=== PATIENT | male | born 1940 | race Caucasian/White ===

== ENCOUNTER 2018-08-14 18:02 | Inpatient (IN) | payer OTHER ==
[2018-08-14 18:15] VITALS: BMI 16.6
--- NOTE | 2018-08-14 19:27 | PDOC ---
History of Present Illness - General Chief Complaint: Cold Symptoms Stated Complaint: SHORTNESS OF BREATH Time Seen by Provider: 08/14/18 19:27 - History of Present Illness Initial Comments: 77 year old male with PMH of dementia, HTN, HLD, CKD, COPD (2L NC at home) presenting with chest tightness, cough, and SOB for the past two days. Family at bedside state that he has also had decreased appetite and slight weakness. His symptoms have improved with home nebulizer (x1 per day over the past two days) but he stills feels the chest tightness. His cough is dry but he feels congested. Denies any fevers, chills, nausea, vomiting, diarrhea, urinary symptoms, lightheadedness or other issues. 08/14/18 19:34 Past History - Past Medical History Allergies/Adverse Reactions: Allergies Allergy/AdvReac Type Severity Reaction Status Date / Time iodine Allergy Verified 08/14/18 18:12 Home Medications: Ambulatory Orders Albuterol 0.083% Nebulizer Mami [Ventolin 0.083% Nebulizer Soln -] 1 amp NEB Q4H PRN #0 amp 04/28/16 Aspirin Coated [Ecotrin -] 81 mg PO DAILY tablet.ec 04/28/16 Budesonide/Formeterol Fumarate [SYMBICORT 80/4.5mcg -] 2 puff IH BID inhaler Albuterol Sulfate [Proair Hfa] 8.5 gm IH TID 08/14/18 Donepezil HCl 5 mg PO HS 08/14/18 Isosorbide Mononitrate [Imdur -] 10 mg PO BID 08/14/18 Memantine HCl [Namenda -] 5 mg PO DAILY 08/14/18 Metoprolol Tartrate [Lopressor -] 25 mg PO DAILY 08/14/18 Anemia: No Asthma: Yes Cancer: No Cardiac Disorders: Yes CVA: No COPD: Yes CHF: No Dementia: Yes Diabetes: No GI Disorders: No Disorders: Yes (KIDNEY ISSUES) HTN: Yes Hypercholesterolemia: Yes Liver Disease: No Seizures: No Thyroid Disease: Yes - Surgical History Abdominal Surgery: Yes (URETER TUBE CHILD) Appendectomy: Yes Cardiac Surgery: No Cholecystectomy: No Lung Surgery: No Neurologic Surgery: Yes (cyst removed from spine) Orthopedic Surgery: No - Immunization History Td Vaccination: No TDAP Vaccination: No Immunization Up to Date: No - Suicide/Smoking/Psychosocial Hx Smoking Status: Yes Smoking History: Former smoker Have you smoked in the past 12 months: No Number of Cigarettes Smoked Daily: 30 If you are a former smoker, when did you quit?: November 2012 Information on smoking cessation initiated: No 'Breaking Loose' booklet given: 05/04/13 Hx Alcohol Use: No Drug/Substance Use Hx: No Substance Use Type: None Hx Substance Use Treatment: No Review of Systems - Review of Systems Constitutional: No: Chills, Diaphoresis, Fever, Loss of Appetite HEENTM: No: Blurred Vision, Tearing Respiratory: Yes: Cough, Shortness of Breath, SOB with Exertion. No: Orthopnea , Wheezing, Productive cough Cardiac (ROS): No: Chest Pain, Edema, Irregular Heart Rate ABD/GI: Yes: Poor Appetite. No: Diarrhea, Nausea, Vomiting : No: Burning, Dysuria, Discharge, Frequency Musculoskeletal: No: Back Pain, Joint Pain Integumentary: No: Lesions, Lumps, Pallor Neurological: No: Headache, Numbness, Paresthesia Psychiatric: Yes: Other (dementia). No: Anxiety, Depression Hematologic/Lymphatic: No: Anemia, Blood Clots, Easy Bleeding *Physical Exam - Vital Signs Last Vital Signs Temp Pulse Resp BP Pulse Ox 9931 F H 87 18 183/93 H 100 08/14/18 18:12 08/14/18 18:12 08/14/18 18:12 08/14/18 18:12 08/14/18 18:12 - Physical Exam General Appearance: Yes: Nourished, Appropriately Dressed. No: Apparent Distress HEENT: positive: EOMI, ROSA, Normal ENT Inspection, Normal Voice Neck: positive: Trachea midline, Normal Thyroid, Supple. negative: Tender, Rigid Respiratory/Chest: positive: Decreased Breath Sounds (slightly decreased/ distant bilaterally). negative: Chest Tender, Lungs Clear, Normal Breath Sounds (distant with fine crackles bilaterally), Respiratory Distress, Accessory Muscle Use, Labored Respiration, Rapid RR Cardiovascular: positive: Regular Rhythm, Regular Rate Gastrointestinal/Abdominal: positive: Normal Bowel Sounds, Flat, Soft. negative : Tender Lymphatic: negative: Adenopathy, Tenderness Musculoskeletal: positive: Normal Inspection Extremity: positive: Normal Capillary Refill, Normal Inspection, Normal Range of Motion. negative: Tender Integumentary: positive: Normal Color, Dry, Warm Neurologic: positive: Fully Oriented, Alert, Normal Mood/Affect, Normal Response , Motor Strength 5/5 Moderate Sedation - Procedure Monitoring Vital Signs: Procedure Monitoring Vital Signs Temperature 9931 F H 08/14/18 18:12 Pulse Rate 87 08/14/18 18:12 Respiratory Rate 18 08/14/18 18:12 Blood Pressure 183/93 H 08/14/18 18:12 O2 Sat by Pulse Oximetry (%) 100 08/14/18 18:12 ED Treatment Course - LABORATORY CBC & Chemistry Diagram: 08/14/18 19:19 08/14/18 19:59 Medical Decision Making - Medical Decision Making 77 year old male with history COPD on 2L NC presneting with SOB, cough, and chest tightness. Discussed with hospitalist service and Dr. Enciso., No EKG changes (76, MO 120, QRS 92, QTc 481, [place] normal unchanged form previous) but elevated troponin to 0.08 (4x higher than previous in the setting off CKD). Given nebs, steroids, and azithromycin for mild copd exacerbation because of tropnemia and levated BNP, will admit for PRABHA and possible echo. 08/14/18 23:30 *DC/Admit/Observation/Transfer Diagnosis at time of Disposition: CKD (chronic kidney disease) stage 3, GFR 30-59 ml/min, Mild chronic obstructive pulmonary disease, Chest tightness, Elevated troponin I level - Discharge Dispostion Condition at time of disposition: Stable Decision to Admit order: Yes - Referrals - Patient Instructions - Post Discharge Activity
--- NOTE | 2018-08-14 19:31 | PDOC ---
Attending Attestation - HPI HPI: 08/14/18 20:20 The patient is a 77-year-old male, with a past medical history of HTN, HLD, COPD (on 2L NC), who presents to the ED with 2 days of nonproductive cough and shortness of breath. Patient had one nebulizer treatment yesterday and one earlier today. Upon examination, the patient is complaining of chest tightness but denies any chest pain. Son is at bedside. - Physicial Exam PE: 08/14/18 20:21 Agree with resident's exam. - Medical Decision Making 08/14/18 20:23 Chest X-Ray was reviewed by Dr. Pope and over-read by Radiology. Impression: No significant interval change or acute cardiopulmonary disease is present. <Ayla Zepeda - Last Filed: 08/14/18 20:23> - Resident Resident Name: Maryjane Flores - ED Attending Attestation I have performed the following: I have examined & evaluated the patient, The case was reviewed & discussed with the resident, I agree w/resident's findings & plan - Medical Decision Making 77-year-old male with shortness of breath and chest tightness Labs reviewed, there is elevation of patient's BENP, markedly increased from baseline as well as a mild elevation of patient's troponin Patient being patient given steroids and nebulizer treatments with some improvement In light of patient's age and abnormal labs he will be admitted to medical service for further management Impression chest pain Congestive heart failure elevated troponin 08/14/18 22:10 08/14/18 22:11 <Rachelle Pope - Last Filed: 08/14/18 22:12> Attestations - Attestations 08/14/18 20:21 Documentation prepared by Ayla Zepeda, acting as medical insurance verifier for Rachelle Pope DO. <Ayla Zepeda - Last Filed: 08/14/18 20:23>
[2018-08-14] MEDS ORDERED: ALBUTEROL SO4 2.5/IPRATROPIUM 0.5 INH SOL 3 ML VIAL.NEB. NEB ONE (20:24)
[2018-08-14] MEDS ORDERED: predniSONE 20 MG TABLET (UD) PO STA (20:26)
[2018-08-14] MEDS ORDERED: AZITHROMYCIN 250 MG TABLET PO STA (20:27)
[2018-08-14] MEDS: ALBUTEROL SO4 2.5/IPRATROPIUM 0.5 INH SOL 3 ML VIAL.NEB. NEB SCH ×2 (20:35→20:36)
[2018-08-14 20:44] LABS: HEMATOCRIT 35.8 % (35.4-49); HEMOGLOBIN 12.3 GM/dL (11.7-16.9); MCH 33.2 pg (25.7-33.7); MCHC 34.4 g/dl (32.0-35.9); MEAN CELL VOLUME 96.6 fl (80-96); MEAN PLT VOLUME 8.4 fl (7.5-11.1); PLATELET COUNT 215 K/MM3 (134-434); RDW 14.5 % (11.9-15.9); WHITE BLOOD COUNT 3.3 K/mm3 (4.0-10.0)
[2018-08-14 21:46] LABS: BLOOD UREA NITROGEN 18 mg/dL (7-18); CHLORIDE 100 mmol/L (98-107); GLUCOSE,RANDOM 90 mg/dL (74-106); POTASSIUM 4.2 mmol/L (3.5-5.1); SODIUM 141 mmol/L (136-145)
[2018-08-14 21:47] LABS: ALBUMIN 3.9 g/dl (3.4-5.0); ALK PHOS 138 U/L (45-117); ANION GAP 9 MMOL/L (8-16); BILIRUBIN,TOTAL 1.4 mg/dL (0.2-1); CALCIUM 8.8 mg/dL (8.5-10.1); CO2 32 mmol/L (21-32); N-TERMINAL BNP 8533.4 pg/ml (5-450); SGOT/AST 15 U/L (15-37); SGPT/ALT 10 U/L (13-61); TOT PROT 7.6 g/dl (6.4-8.2)
[2018-08-14] MEDS ORDERED: predniSONE 10 MG TABLET (UD) ONE (22:16)
[2018-08-14] MEDS ORDERED: AZITHROMYCIN 250 MG TABLET ONE (22:16)
--- NOTE | 2018-08-14 23:12 | HP ---
Admitting History and Physical - Primary Care Physician PCP: Glenny Marsh - Admission Chief Complaint: Chest Tightness, SOB, Cough History of Present Illness: This is a 77 y/o man with a PMHx of: HTN, HLD, CKD, COPD (2LNC), Former Smoker. Who presents with chest tightness, SOB and non-productive cough x 2 days. Patient's family reported to the ED decreased appetite and slight weakness. Patient is a poor historian unable to provide HPI. Per the ED: Family at bedside state that he has also had decreased appetite and slight weakness. His symptoms have improved with home nebulizer (x1 per day over the past two days) but he stills feels the chest tightness. His cough is dry but he feels congested. Denies any fevers, chills, nausea, vomiting, diarrhea, urinary symptoms, lightheadedness or other issues. History Source: Family Member, Medical Record Limitations to Obtaining History: Poor Historian - Past Medical History Cardiovascular: Yes: HTN, Hyperlipdemia Pulmonary: Yes: COPD, O2 Dependent Renal/: Yes: Renal Inusuff - Past Surgical History Past Surgical History: Yes: Appendectomy, Stent (Possibly aortic, patient is unsure) - Smoking History Smoking history: Former smoker Have you smoked in the past 12 months: No Aproximately how many cigarettes per day: 30 If you are a former smoker, when did you quit?: November 2012 - Alcohol/Substance Use Hx Alcohol Use: No History of Substance Use: reports: None - Social History Usual Living Arrangement: Yes: With Child ADL: Family Assistance 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 History of Recent Travel: No Home Medications - Allergies Allergies/Adverse Reactions: Allergies Allergy/AdvReac Type Severity Reaction Status Date / Time iodine Allergy Verified 08/14/18 18:12 - Home Medications Home Medications: Ambulatory Orders Albuterol 0.083% Nebulizer Mami [Ventolin 0.083% Nebulizer Soln -] 1 amp NEB Q4H PRN #0 amp 04/28/16 Aspirin Coated [Ecotrin -] 81 mg PO DAILY tablet.ec 04/28/16 Budesonide/Formeterol Fumarate [SYMBICORT 80/4.5mcg -] 2 puff IH BID inhaler Albuterol Sulfate [Proair Hfa] 8.5 gm IH TID 08/14/18 Donepezil HCl 5 mg PO HS 08/14/18 Isosorbide Mononitrate [Imdur -] 10 mg PO BID 08/14/18 Memantine HCl [Namenda -] 5 mg PO DAILY 08/14/18 Metoprolol Tartrate [Lopressor -] 25 mg PO DAILY 08/14/18 Family Disease History - Family Disease History Family History: Unable to Obtain Review of Systems Unable to obtain ROS, reason: Confused, poor historian Physical Examination Vital Signs: Vital Signs Temperature 9931 F H 08/14/18 18:12 Pulse Rate 87 08/14/18 18:12 Respiratory Rate 18 08/14/18 18:12 Blood Pressure 183/93 H 08/14/18 18:12 O2 Sat by Pulse Oximetry (%) 100 08/14/18 18:12 Constitutional: Yes: No Distress, Calm, Cachectic Eyes: Yes: Conjunctiva Clear, PERRL HENT: Yes: WNL, Atraumatic, Normocephalic Neck: Yes: WNL Cardiovascular: Yes: WNL, Regular Rate and Rhythm, S1, S2 Respiratory: Yes: Regular, CTA Bilaterally, On Nasal O2 Gastrointestinal: Yes: WNL, Normal Bowel Sounds, Soft Musculoskeletal: Yes: WNL Extremities: Yes: WNL Edema: No Peripheral Pulses WNL: Yes Neurological: Yes: Confusion, Cran Nerves II-XII Intact ...Motor Strength: WNL Psychiatric: Yes: Alert Labs: CBC, BMP 08/14/18 19:19 08/14/18 19:59 Current Medications Generic Name Dose Route Start Last Admin Trade Name Luz Elena PRN Reason Stop Dose Admin Albuterol Sulfate 1 amp 08/14/18 23:22 Ventolin 0.083% Nebulizer Soln - NEB Q4H PRN SHORT OF BREATH/WHEEZING Aspirin 81 mg 08/15/18 10:00 Ecotrin - PO DAILY MIKY Budesonide/Formoterol Fumarate 2 puff 08/14/18 23:00 08/15/18 02:27 Symbicort 80/4.5mcg - IH Not Given BID MIKY Donepezil HCl 5 mg 08/15/18 22:00 Aricept - PO HS MIKY Isosorbide Mononitrate 10 mg 08/15/18 08:00 Ismo - PO BID@0800,1500 MIKY Memantine 5 mg 08/15/18 10:00 Namenda - PO DAILY MIKY Metoprolol Tartrate 25 mg 08/15/18 10:00 Lopressor - PO DAILY MIKY Imaging - Results Chest X-ray: Report Reviewed (no interval change, no acute cardiopulmonary disease), Image Reviewed EKG: Image Reviewed Problem List - Problems (1) Chest tightness Assessment/Plan: Likely secondary to COPD flare vs ACS HEART Score 5 Continue cardiac monitoring Serial enzymes EKG- no change from prior study Appreciate Cardiology consult Echo in am Asa given in ED will continue Duonebs O2 Code(s): R07.89 - OTHER CHEST PAIN (2) Elevated troponin I level Assessment/Plan: Likely demand ischemia Serial enzymes Appreciate Cardiology consult Continue cardiac monitoring Code(s): R74.8 - ABNORMAL LEVELS OF OTHER SERUM ENZYMES (3) CKD (chronic kidney disease) stage 3, GFR 30-59 ml/min Assessment/Plan: Cr 2.0 Code(s): N18.3 - CHRONIC KIDNEY DISEASE, STAGE 3 (MODERATE) (4) COPD exacerbation Assessment/Plan: Chest xray- no interval change, no acute cardiopulmonary disease Rapid Influenza- neg A+B Azithromycin given in ED, will continue Prednisone given in ED Appreciate Pulmonology consult Continue home meds O2 Albuterol nebs Monitor CBC, BMP Code(s): J44.1 - CHRONIC OBSTRUCTIVE PULMONARY DISEASE W (ACUTE) EXACERBATION (5) Hyperlipidemia Assessment/Plan: Low Cholesterol Diet Code(s): E78.5 - HYPERLIPIDEMIA, UNSPECIFIED Qualifiers: Hyperlipidemia type: pure hypercholesterolemia Qualified Code(s): E78.00 - Pure hypercholesterolemia, unspecified; E78.0 - Pure hypercholesterolemia (6) Hypertension Assessment/Plan: Suboptimal Monitor BP Continue home meds with parameters Code(s): I10 - ESSENTIAL (PRIMARY) HYPERTENSION Qualifiers: Hypertension type: essential hypertension Qualified Code(s): I10 - Essential (primary) hypertension (7) Poor appetite Assessment/Plan: Appreciate RD consult Appreciate Swallow Eval Encourage PO fluids Monitor BMP Code(s): R63.0 - ANOREXIA Assessment/Plan This is a 77 y/o man with a pMHx of HTN, HLD, CKD, COPD (2LNC), Former Smoker. Admitted to Telemetry Chest Pain, Elevated Troponin, Acute COPD Exacerbation for further evaluation of their emergent condition. Plan: See Problem List FEN PO fluids as tolerated Replete lytes prn Pureed Low Na Diet DVT ppx OOB SCDs Heparin SQ Dispo: Requires Inpatient Care Visit type - Emergency Visit Emergency Visit: Yes ED Registration Date: 08/14/18 Care time: The patient presented to the Emergency Department on the above date and was hospitalized for further evaluation of their emergent condition. - New Patient This patient is new to me today: Yes Date on this admission: 08/14/18 - Critical Care Critical Care patient: No
[2018-08-14] MEDS ORDERED: ALBUTEROL SO4 0.083% IH SOL 2.5 MG/3 ML VIAL.NEB. NEB PRN (23:22)
[2018-08-14] MEDS ORDERED: ASPIRIN 81 MG CHEWABLE TABLETS PO ONE (23:30)
[2018-08-15] MEDS: BUDESONIDE/FORMETEROL FUMARATE 80/4.5 mcg INHALER IH SCH ×2 (02:27→11:24)
[2018-08-15 06:06] LABS: BASO % 0.1 % (0-2.0); HEMATOCRIT 30.2 % (35.4-49); HEMOGLOBIN 10.4 GM/dL (11.7-16.9); LYMPH % 3.6 % (8-40); MCH 33.1 pg (25.7-33.7); MCHC 34.4 g/dl (32.0-35.9); MEAN CELL VOLUME 96.1 fl (80-96); MEAN PLT VOLUME 8.1 fl (7.5-11.1); MONO % 1.5 % (3.8-10.2); NEUT % 94.8 % (42.8-82.8); PLATELET COUNT 194 K/MM3 (134-434); RBC 3.14 M/mm3 (4.00-5.60); RDW 14.6 % (11.9-15.9); WHITE BLOOD COUNT 3.7 K/mm3 (4.0-10.0)
[2018-08-15 06:40] LABS: ANION GAP 8 MMOL/L (8-16); BLOOD UREA NITROGEN 20 mg/dL (7-18); CALCIUM 8.6 mg/dL (8.5-10.1); CHLORIDE 100 mmol/L (98-107); CHOLESTEROL 130 mg/dL (50-200); CO2 33 mmol/L (21-32); CREATININE 2.1 mg/dL (0.55-1.3); GLUCOSE,RANDOM 139 mg/dL (74-106); HDL CHOLESTEROL 49 mg/dL (40-60); MAGNESIUM 1.6 mg/dL (1.8-2.4); POTASSIUM 3.6 mmol/L (3.5-5.1); SODIUM 141 mmol/L (136-145); TRIGLYCERIDES 78 mg/dL (0-150)
[2018-08-15] MEDS: ISOSORBIDE MONONITRATE 10 MG TABLET PO SCH (09:23)
[2018-08-15] MEDS: METOPROLOL TARTRATE 25 MG TABLET (FP) PO SCH (11:23)
[2018-08-15] MEDS: ASPIRIN COATED 81 MG TABLET.EC PO SCH (11:23)
[2018-08-15] MEDS: MEMANTINE HCL 5 MG TABLET (UD) PO SCH (11:24)
[2018-08-15 11:33] LABS: ANISOCYTOSIS 1+; MACROCYTOSIS 0; PLATELET ESTIMATE NORMAL
--- NOTE | 2018-08-15 12:23 | EKG ---
Test Reason : Blood Pressure : / mmHG Vent. Rate : 076 BPM Atrial Rate : 076 BPM P-R Int : 120 ms QRS Dur : 092 ms QT Int : 428 ms P-R-T Axes : 082 -29 017 degrees QTc Int : 481 ms NORMAL SINUS RHYTHM SEPTAL INFARCT (CITED ON OR BEFORE 14-AUG-2018) ABNORMAL ECG WHEN COMPARED WITH ECG OF 24-APR-2016 00:46, PREMATURE SUPRAVENTRICULAR COMPLEXES ARE NO LONGER PRESENT Confirmed by MACIEL GRAY MD ([id number]) on 08/15/2018 12:23:21 PM Referred By: Confirmed By:MACIEL GRAY MD
[2018-08-15] MEDS: AZITHROMYCIN IVPB 250 MG in DEXTROSE 5%-WATER - 250 ML IVPB SCH (12:55)
--- NOTE | 2018-08-15 13:18 | PN ---
Progress Note, Physician Chief Complaint: patient seen in ER complaining of cough sitting up in bed admitted for chest tightenss and cough Jose - Current Medication List Current Medications: Active Medications Albuterol Sulfate (Ventolin 0.083% Nebulizer Soln -) 1 amp NEB Q4H PRN PRN Reason: SHORT OF BREATH/WHEEZING Aspirin (Ecotrin -) 81 mg PO DAILY [facility] Last Admin: 08/15/18 11:23 Dose: 81 mg Budesonide/Formoterol Fumarate (Symbicort 80/4.5mcg -) 2 puff IH BID [facility] Last Admin: 08/15/18 11:24 Dose: Not Given Donepezil HCl (Aricept -) 5 mg PO HS [facility] Azithromycin 250 mg/ Dextrose 250 mls @ 250 mls/hr IVPB DAILY [facility] Stop: 08/19/18 09:59 Last Admin: 08/15/18 12:55 Dose: 250 mls/hr Isosorbide Mononitrate (Ismo -) 10 mg PO BID@0800,1500 [facility] Last Admin: 08/15/18 09:23 Dose: 10 mg Magnesium Sulfate (Magnesium Sulfate) 2 gm IVPB ONCE ONE Stop: 08/15/18 13:10 Memantine (Namenda -) 5 mg PO DAILY [facility] Last Admin: 08/15/18 11:24 Dose: 5 mg Metoprolol Tartrate (Lopressor -) 25 mg PO DAILY [facility] Last Admin: 08/15/18 11:23 Dose: 25 mg - Objective Vital Signs: Vital Signs Temperature 97.9 F 08/15/18 10:36 Pulse Rate 80 08/15/18 10:36 Respiratory Rate 20 08/15/18 10:36 Blood Pressure 164/82 08/15/18 10:36 O2 Sat by Pulse Oximetry (%) 100 08/15/18 10:36 Constitutional: Yes: Calm, Thin Cardiovascular: Yes: Regular Rate and Rhythm, S1, S2 Respiratory: Yes: Diminished Gastrointestinal: Yes: Normal Bowel Sounds, Soft Edema: No Neurological: Yes: Alert, Oriented Labs: CBC, BMP 08/15/18 05:50 08/15/18 05:50 Problem List - Problems (1) Chest tightness Assessment/Plan: troponin slightly elevated also inc in creatinine telemtery echo asa lipid panel Code(s): R07.89 - OTHER CHEST PAIN (2) Elevated troponin I level Assessment/Plan: trend troponin tele cardiology Code(s): R74.8 - ABNORMAL LEVELS OF OTHER SERUM ENZYMES (3) CKD (chronic kidney disease) stage 3, GFR 30-59 ml/min Assessment/Plan: renal consult Code(s): N18.3 - CHRONIC KIDNEY DISEASE, STAGE 3 (MODERATE) (4) Cough Assessment/Plan: influenza negative pulm eval duoneb oxygen steroids po azithromycin bronchodilators Code(s): R05 - COUGH (5) Hypomagnesemia Assessment/Plan: iv magnesium Code(s): E83.42 - HYPOMAGNESEMIA
--- NOTE | 2018-08-15 13:24 | ECHO ---
Name: CLARIBEL PICKETT Exam:Adult Echocardiogram Study Date: 08/15/2018 07:28 AM Age: 77 yrs Reason For Study: Chest pain Height: 65 in Weight: 100 lb BSA: 1.5 m2 MMode/2D Measurements & Calculations IVSd: 0.86 cm Ao root diam: 2.5 cm LVIDd: 4.3 cm LA dimension: 2.5 cm LVIDs: 3.1 cm LVPWd: 1.1 cm EDV(Teich): 81.7 ml ESV(Teich): 38.8 ml Doppler Measurements & Calculations MV E max nolvia: 60.1 cm/sec TR max nolvia: 278.3 cm/sec MV A max nolvia: 87.8 cm/sec TR max P.0 mmHg MV E/A: 0.68 MV dec time: 0.15 sec Med Peak E' Nolvia: 4.7 cm/sec PI Vmax: 111.3 cm/sec Med E/e': 12.8 Lat Peak E' Nolvia: 5.7 cm/sec Lat E/e': 10.6 Procedure A complete two-dimensional transthoracic echocardiogram was performed (2D, M-mode, Doppler and color flow Doppler). The study was technically difficult with many images being suboptimal in quality. Left Ventricle The left ventricular size, thickness and function are normal. The left ventricular ejection fraction is normal. Ejection Fraction = 55-60%. No regional wall motion abnormalities noted. Right Ventricle The right ventricle is not well visualized. Atria The left atrial size is normal. Right atrium not well visualized. Mitral Valve There is trace mitral regurgitation. Tricuspid Valve There is trace tricuspid regurgitation. Right ventricular systolic pressure is normal. Aortic Valve No aortic regurgitation is present. Pulmonic Valve The pulmonic valve is not well visualized. Great Vessels The aortic root is normal size. Pericardium/Pleura There is no pericardial effusion. Interpretation Summary The study was technically difficult with many images being suboptimal in quality. The left ventricular size, thickness and function are normal The right ventricle is not well visualized. There is trace mitral regurgitation. There is trace tricuspid regurgitation. MD Srinivasan Santana 08/15/2018 01:23 PM
--- NOTE | 2018-08-15 13:43 | CON.PULM ---
Consult Consult Specialty:: PULM/CCM Referred by:: CHATA Reason for Consultation:: SOB - History of Present Illness Chief Complaint: SOB History of Present Illness: 77 M, HTN, HLD, CKD, COPD due to prolonged and active smoking on home O2 @ 2 L. Admitted via the ER due to increasing congested cough, chest tightness, and SOB for about 2 to 3 days. Additional symptoms of poor oral intake and generalized malaise. No travel history or sick contacts. No night sweats or hemoptysis. No reported fever or chills. CXR: No acute process. CT chest: 2016: scattered 4 mm nodules - Past Medical History Cardio/Vascular: Yes: HTN, Hyperlipdemia Pulmonary: Yes: COPD, O2 Dependent Renal/: Yes: Renal Inusuff Additional Medical History: gu surgery as a child; cyst on back - Past Surgical History Past Surgical History: Yes: Appendectomy, Stent (Possibly aortic, patient is unsure) - Alcohol/Substance Use Hx Alcohol Use: No History of Substance Use: reports: None - Smoking History Smoking history: Former smoker Have you smoked in the past 12 months: No Aproximately how many cigarettes per day: 30 If you are a former smoker, when did you quit?: November 2012 - Social History ADL: Family Assistance 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 History of Recent Travel: No Home Medications - Allergies Allergies/Adverse Reactions: Allergies Allergy/AdvReac Type Severity Reaction Status Date / Time iodine Allergy Verified 08/14/18 18:12 - Home Medications Home Medications: Ambulatory Orders Albuterol 0.083% Nebulizer Mami [Ventolin 0.083% Nebulizer Soln -] 1 amp NEB Q4H PRN #0 amp 04/28/16 Aspirin Coated [Ecotrin -] 81 mg PO DAILY tablet.ec 04/28/16 Budesonide/Formeterol Fumarate [SYMBICORT 80/4.5mcg -] 2 puff IH BID inhaler Albuterol Sulfate [Proair Hfa] 8.5 gm IH TID 08/14/18 Donepezil HCl 5 mg PO HS 08/14/18 Isosorbide Mononitrate [Imdur -] 10 mg PO BID 08/14/18 Memantine HCl [Namenda -] 5 mg PO DAILY 08/14/18 Metoprolol Tartrate [Lopressor -] 25 mg PO DAILY 08/14/18 Physical Exam Vital Sings: Vital Signs Temperature 97.9 F 08/15/18 10:36 Pulse Rate 80 08/15/18 10:36 Respiratory Rate 20 08/15/18 10:36 Blood Pressure 164/82 08/15/18 10:36 O2 Sat by Pulse Oximetry (%) 100 08/15/18 10:36 Constitutional: Yes: No Distress, Thin Eyes: Yes: Conjunctiva Clear, EOM Intact HENT: Yes: Atraumatic, Normocephalic Neck: Yes: Supple, Trachea Midline Cardiovascular: Yes: Regular Rate and Rhythm Respiratory: Yes: Cough, Diminished, On Nasal O2, Rhonchi, Wheezes. No: Accessory Muscle Use, Rales, SOB, SOB on Exertion, Stridor, Tachypnea ...Inspection: Yes: WNL ...Clubbing: No Gastrointestinal: Yes: WNL, Normal Bowel Sounds, Soft Renal/: Yes: WNL Musculoskeletal: Yes: WNL Extremities: Yes: WNL Edema: No Peripheral Pulses WNL: Yes Integumentary: Yes: WNL Neurological: Yes: WNL, Alert, Oriented ...Motor Strength: WNL Psychiatric: Yes: WNL, Alert, Oriented Labs: CBC, BMP 08/15/18 05:50 08/15/18 05:50 Imaging - Results Chest X-ray: Report Reviewed, Image Reviewed Cat Scan: Report Reviewed, Image Reviewed Problem List - Problems (1) Cough Code(s): R05 - COUGH (2) Poor appetite Code(s): R63.0 - ANOREXIA (3) COPD exacerbation Code(s): J44.1 - CHRONIC OBSTRUCTIVE PULMONARY DISEASE W (ACUTE) EXACERBATION (4) Chronic obstruct airways disease Code(s): J44.9 - CHRONIC OBSTRUCTIVE PULMONARY DISEASE, UNSPECIFIED (5) Hyperlipidemia Code(s): E78.5 - HYPERLIPIDEMIA, UNSPECIFIED Qualifiers: Hyperlipidemia type: pure hypercholesterolemia Qualified Code(s): E78.00 - Pure hypercholesterolemia, unspecified; E78.0 - Pure hypercholesterolemia (6) Hypertension Code(s): I10 - ESSENTIAL (PRIMARY) HYPERTENSION Qualifiers: Hypertension type: essential hypertension Qualified Code(s): I10 - Essential (primary) hypertension Assessment/Plan Agree with Prednisone O2 as needed Noted Zithromax No smoking discussed Patient can likely be discharged in the AM if stable/improved Noted Symbicort On discharge should be on LAMA/LABA PFTs after discharge Will follow Thank you. Dr Fitch
--- NOTE | 2018-08-15 13:57 | CON.CARD ---
Consult Consult Specialty:: cardiology Referred by:: Salma Reason for Consultation:: Chest pain and shortness of breath - History of Present Illness Chief Complaint: Chest pain and shortness of breath History of Present Illness: The patient is a 77-year-old cachectic man, heavy smoker for many years, hypertension, hyperlipidemia, COPD on home O2, chronic kidney disease, now admitted with generalized weakness, cough, shortness of breath, and a brief episode of chest pain. The patient has been given antibiotics for COPD exacerbation and possible pneumonia. The patient reported an episode of chest tightness while sitting in the chair. As per the patient the symptoms lasted approximately 35-40 seconds before subsiding. Denied such prior symptoms. He is currently chest pain-free. In mild respiratory distress. - History Source History Provided By: Patient, Medical Record Limitations to Obtaining History: No Limitations - Past Medical History Cardio/Vascular: Yes: HTN, Hyperlipdemia Pulmonary: Yes: COPD, O2 Dependent Renal/: Yes: Renal Inusuff Additional Medical History: gu surgery as a child; cyst on back - Past Surgical History Past Surgical History: Yes: Appendectomy, Stent (Possibly aortic, patient is unsure) - Alcohol/Substance Use Hx Alcohol Use: No History of Substance Use: reports: None - Smoking History Smoking history: Former smoker Have you smoked in the past 12 months: No Aproximately how many cigarettes per day: 30 If you are a former smoker, when did you quit?: November 2012 - Social History ADL: Family Assistance 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 History of Recent Travel: No Home Medications - Allergies Allergies/Adverse Reactions: Allergies Allergy/AdvReac Type Severity Reaction Status Date / Time iodine Allergy Verified 08/14/18 18:12 - Home Medications Home Medications: Ambulatory Orders Albuterol 0.083% Nebulizer Mami [Ventolin 0.083% Nebulizer Soln -] 1 amp NEB Q4H PRN #0 amp 04/28/16 Aspirin Coated [Ecotrin -] 81 mg PO DAILY tablet.ec 04/28/16 Budesonide/Formeterol Fumarate [SYMBICORT 80/4.5mcg -] 2 puff IH BID inhaler Albuterol Sulfate [Proair Hfa] 8.5 gm IH TID 08/14/18 Donepezil HCl 5 mg PO HS 08/14/18 Isosorbide Mononitrate [Imdur -] 10 mg PO BID 08/14/18 Memantine HCl [Namenda -] 5 mg PO DAILY 08/14/18 Metoprolol Tartrate [Lopressor -] 25 mg PO DAILY 08/14/18 Review of Systems - Review of Systems Constitutional: reports: Lethargy, Loss of Appetite, Malaise Eyes: reports: No Symptoms HENT: reports: No Symptoms Neck: reports: No Symptoms Cardiovascular: reports: Chest Pain Respiratory: reports: Cough, SOB Gastrointestinal: reports: No Symptoms Genitourinary: reports: No Symptoms Breasts: reports: No Symptoms Reported Musculoskeletal: reports: No Symptoms Integumentary: reports: No Symptoms Neurological: reports: No Symptoms Endocrine: reports: No Symptoms Hematology/Lymphatic: reports: No Symptoms Vital Signs: Vital Signs Temperature 97.9 F 08/15/18 10:36 Pulse Rate 80 08/15/18 10:36 Respiratory Rate 20 08/15/18 10:36 Blood Pressure 164/82 08/15/18 10:36 O2 Sat by Pulse Oximetry (%) 100 08/15/18 10:36 Constitutional: Yes: Cachectic Eyes: Yes: WNL, Conjunctiva Clear, EOM Intact HENT: Yes: WNL, Atraumatic, Normocephalic Neck: Yes: WNL, Supple, Trachea Midline Respiratory: Yes: Cough, Diminished, On Nasal O2, Poor Air Entry, Rhonchi, SOB Gastrointestinal: Yes: WNL, Normal Bowel Sounds, Soft Renal/: Yes: WNL Cardiovascular: Yes: WNL, Regular Rate and Rhythm JVD: No Carotid Bruit: No PMI: Non-Displaced Heart Sounds: Yes: S1, S2 Murmur: Yes: Systolic Murmur, Grade 2 Musculoskeletal: Yes: WNL Extremities: Yes: WNL Edema: No Peripheral Pulses: 1+ Left Carotid, 1+ Right Carotid, 1+ Left Femoral, 1+ Right Femoral, 1+ Left Popliteal, 1+ Right Popliteal, 1+ Left Doralis Pedis, 1+ Right Dorsalis Pedis Integumentary: Yes: WNL Neurological: Yes: WNL, Alert, Oriented ...Motor Strength: WNL - Other Data Labs, Other Data: CBC, BMP 08/15/18 05:50 08/15/18 05:50 Troponin, BNP 0108/15/18 08/15/18 19:59 04:35 05:50 Troponin I 0.08 H 0.06 H 0.07 H B-Natriuretic Peptide 8533.4 H Troponin, BNP 08/14/18 08/15/18 08/15/18 19:59 04:35 05:50 Troponin I 0.08 H 0.06 H 0.07 H B-Natriuretic Peptide 8533.4 H Assessment/Plan The patient is a 77-year-old cachectic man, heavy smoker for many years, hypertension, hyperlipidemia, COPD on home O2, chronic kidney disease, now admitted with generalized weakness, cough, shortness of breath, and a brief episode of chest pain. The patient has been given antibiotics for COPD exacerbation and possible pneumonia. The patient reported an episode of chest tightness while sitting in the chair. As per the patient the symptoms lasted approximately 35-40 seconds before subsiding. Denied such prior symptoms. He is currently chest pain-free. In mild respiratory distress. Troponins are minimally elevated. No further chest pains. No CHF. There is no evidence of ischemia nor acute coronary syndrome. The patient is in sinus rhythm. There are no acute ECG changes. Would treat conservatively in this setting. May consider an outpatient pharmacological nuclear stress test and echocardiogram, once respiratory status is improved. No need for cardiac monitoring. No need for further cardiac workup at this point. Please do not hesitate to call us PRN.
[2018-08-15] MEDS ORDERED: MAGNESIUM SULF 50% (8.12 MEQ/2 ML-1 GM VIAL) IVPB ONE (14:00)
--- NOTE | 2018-08-15 15:46 | CONSULT ---
Admitting History and Physical - Primary Care Physician PCP: Adelita Mcallister - Admission History of Present Illness: This is a 77 y/o man with a pMHx of HTN, HLD, CKD, COPD (2LNC), cachectic, heavy smoker for many years, admitted to Telemetry Chest Pain, Elevated Troponin , Acute COPD Exacerbation with c/o increasing congested cough, chest tightness , and SOB for about 2 to 3 days, poor oral intake and generalized malaise. The patient has been given antibiotics for COPD exacerbation and possible pneumonia Selected Entries 08/15/18 08/15/18 10:36 14:00 Temperature 97.9 F 98.3 F Laboratory Tests 08/15/18 05:50 WBC 3.7 L This is my first consult with this pt. Limitations to Obtaining History: Clinical Condition - Past Medical History Cardiovascular: Yes: HTN, Hyperlipdemia Pulmonary: Yes: COPD, O2 Dependent Renal/: Yes: Renal Inusuff - Past Surgical History Past Surgical History: Yes: Appendectomy, Stent (Possibly aortic, patient is unsure) - Smoking History Smoking history: Former smoker Have you smoked in the past 12 months: No Aproximately how many cigarettes per day: 30 If you are a former smoker, when did you quit?: November 2012 - Alcohol/Substance Use Hx Alcohol Use: No History of Substance Use: reports: None - Social History ADL: Family Assistance 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 History of Recent Travel: No History - Admission Reason For Visit: ELEVATED BRAIN NATRIURETIC PEPTIDE LEVEL ELEVATED - Diagnostics X-ray: Report Reviewed CT Scan: Report Reviewed - General Mental Status: Awake and Alert (Knows [facility], [place], wants to know how long he has been here, thinks he is 89 yo), Able to Follow Commands Attention: Intact Ability to Follow Directions: Good Head/Neck Control: Good - Hearing Hearing: Impaired Speech Evaluation - Communication Primary Language: PASHTO Communication: Yes: Simple Responses - Speech Production Able to Make Needs Known: Yes: Mildly Impaired Intelligibility: Yes: Mildly Impaired - Speech Characteristics Voice Loudness: Mildly Soft/Quiet Voice Pitch: Yes: Normal Voice Phonatory-based Quality: Yes: Normal Speech Pattern: Normal Speech Clarity: < 100% Nasal Resonance: Normal Articulation: Yes: Precise Rate of Speech: Intact - Language/Auditory Comprehension Follows: Yes: 1 Stage Simple Commands - Language/Verbal Expression Able to Respond to Simple Queries: Yes: WNL Able to Communicate Wants and Needs: Yes: WNL Functional Communication Status: Yes: WNL - Swallow Evaluation/Bedside Assessment Current Nutritional Intake: Regular, Thin Liquids Oral Secretions: Yes: WFL Dentition: Yes: Edentulous Facial Symmetry at Rest: Symmetrical Against Resistance Opening: Normal Against Resistance Closing: Normal Pucker Lips: Normal Smile: Normal Lingual Movement: Normal, Symmetric Lingual Speed of Movement: Normal Lingual Movement Strgth Against Opposition: Normal Lingual Movement Characteristics: Normal Velopharyngeal Movement: Normal Laryngeal Movement: Able to Palpate, Reduced Excursion, Labored,delay initiation Rate of Intake: WFL Bolus Size: Small Labial Seal: WFL Chewing: Impaired Oral Prep Time: WFL A-P Transit: WFL Pocketing: None Timing of Swallow: Delayed Coughing/Throat Clear: Yes (thin) Recommendations - Speech Evaluation, Impression/Plan Impression: Pt reports solids sticking in his chest, needing to drink to wash them down. Edentulous. Cough response with thin liquid. Loss of appetite. Cachectic. - Disposition Discharge to: To be Determined - Dysphagia Impressions/Plan Dysphagia Impressions: Ongoing Evaluation, Suspect Aspiration *Silent aspiration: cannot be R/O at bedside Dysphagia Treatment Plan: Small Bites, Chin Tuck/Down, Facilitative Feeding, Safe Rate, 1/2 tsp. at a time, OOB for 1 h. after meals Recommendations: Modified Barium Swallow - Recommendations Diet Consistency: Dysphagia Pureed Medication Administration: Crushed with applesauce Liquids: Felsenthal Thick Supplement: Magic Cup, Ensure Pudding, Other (Ensure compact)
[2018-08-15] MEDS ORDERED: FLU VACCINE QUAD 60 MCG/0.5 ML (MDV 18-19) IM ONE (19:00)
--- NOTE | 2018-08-15 19:45 | CONSULT ---
Consult Consult Specialty:: Nephrology Reason for Consultation:: ckd - History of Present Illness Chief Complaint: chest tightness and shortness of breath History of Present Illness: Pt is a 77 year old male with pmhx of CKD, HTN, dementia, HLD, and COPD who presents to the ER complaining of shortness of breath and chest tightness. He says that he has had the symptoms for two days. He was found to have elevated creatinine and I was called to evaluate him. He has history of CKD. He was seen by me in the past however he has poor followup. He denies dysuria or hematuria. He denies nsaid use. - History Source History Provided By: Patient, Medical Record - Past Medical History Cardio/Vascular: Yes: HTN, Hyperlipdemia Pulmonary: Yes: COPD, O2 Dependent Renal/: Yes: Renal Inusuff Additional Medical History: gu surgery as a child; cyst on back - Past Surgical History Past Surgical History: Yes: Appendectomy, Stent (Possibly aortic, patient is unsure) - Alcohol/Substance Use Hx Alcohol Use: No History of Substance Use: reports: None - Smoking History Smoking history: Former smoker Have you smoked in the past 12 months: No Aproximately how many cigarettes per day: 30 If you are a former smoker, when did you quit?: 2013 - Social History ADL: Family Assistance 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 History of Recent Travel: No Home Medications - Allergies Allergies/Adverse Reactions: Allergies Allergy/AdvReac Type Severity Reaction Status Date / Time iodine Allergy Verified 08/14/18 18:12 - Home Medications Home Medications: Ambulatory Orders Albuterol 0.083% Nebulizer Mmai [Ventolin 0.083% Nebulizer Soln -] 1 amp NEB Q4H PRN #0 amp 04/28/16 Aspirin Coated [Ecotrin -] 81 mg PO DAILY tablet.ec 04/28/16 Budesonide/Formeterol Fumarate [SYMBICORT 80/4.5mcg -] 2 puff IH BID inhaler Albuterol Sulfate [Proair Hfa] 8.5 gm IH TID 08/14/18 Donepezil HCl 5 mg PO HS 08/14/18 Isosorbide Mononitrate [Imdur -] 10 mg PO BID 08/14/18 Memantine HCl [Namenda -] 5 mg PO DAILY 08/14/18 Metoprolol Tartrate [Lopressor -] 25 mg PO DAILY 08/14/18 Family Disease History - Family Disease History Family History: Denies Review of Systems - Review of Systems Constitutional: reports: Malaise Eyes: reports: No Symptoms HENT: reports: No Symptoms Neck: reports: No Symptoms Cardiovascular: reports: Shortness of Breath Respiratory: reports: Cough, SOB, SOB on Exertion Genitourinary: reports: No Symptoms Musculoskeletal: reports: No Symptoms Integumentary: reports: No Symptoms Neurological: reports: No Symptoms Endocrine: reports: No Symptoms Hematology/Lymphatic: reports: No Symptoms Psychiatric: reports: No Symptoms Physical Exam Vital Signs: Vital Signs Temperature 98.4 F 08/15/18 18:00 Pulse Rate 68 08/15/18 18:00 Respiratory Rate 22 H 08/15/18 18:00 Blood Pressure 116/70 08/15/18 18:00 O2 Sat by Pulse Oximetry (%) 98 08/15/18 18:18 Constitutional: Yes: Calm Eyes: Yes: Conjunctiva Clear HENT: Yes: Atraumatic Neck: Yes: Supple Cardiovascular: Yes: S1, S2 Respiratory: Yes: On Nasal O2, Wheezes Gastrointestinal: Yes: Soft Renal/: Yes: WNL Musculoskeletal: Yes: WNL Edema: No Neurological: Yes: Oriented Psychiatric: Yes: Oriented Labs: CBC, BMP 08/15/18 05:50 08/15/18 05:50 Laboratory Tests 04/26/16 04/27/16 04/28/16 06:00 05:48 05:35 Creatinine 2.2 H D 2.3 H 2.0 H Influenza A (Rapid) Influenza B (Rapid) 04/29/16 08/14/18 08/15/18 06:10 19:19 05:50 Creatinine 1.9 H 2.1 H Influenza A (Rapid) Negative Influenza B (Rapid) Negative Imaging - Results Chest X-ray: Report Reviewed Problem List - Problems (1) Chest tightness Code(s): R07.89 - OTHER CHEST PAIN (2) CKD (chronic kidney disease) stage 3, GFR 30-59 ml/min Code(s): N18.3 - CHRONIC KIDNEY DISEASE, STAGE 3 (MODERATE) Assessment/Plan Current Medications Generic Name Dose Route Start Last Admin Trade Name Freq PRN Reason Stop Dose Admin Albuterol Sulfate 1 amp 08/14/18 23:22 Ventolin 0.083% Nebulizer Soln - NEB Q4H PRN SHORT OF BREATH/WHEEZING Aspirin 81 mg 08/15/18 10:00 08/15/18 11:23 Ecotrin - PO 81 mg DAILY MIKY Administration Budesonide/Formoterol Fumarate 2 puff 08/14/18 23:00 08/15/18 11:24 Symbicort 80/4.5mcg - IH Not Given BID MIKY Donepezil HCl 5 mg 08/15/18 22:00 Aricept - PO HS MIKY Azithromycin 250 mg/ Dextrose 250 mls @ 250 mls/hr 08/15/18 10:00 08/15/18 12 :55 IVPB 08/19/18 09:59 250 mls/hr DAILY MIKY Administration Isosorbide Mononitrate 10 mg 08/15/18 08:00 08/15/18 09:23 Ismo - PO 10 mg BID@0800,1500 MIKY Administration Memantine 5 mg 08/15/18 10:00 08/15/18 11:24 Namenda - PO 5 mg DAILY MIKY Administration Metoprolol Tartrate 25 mg 08/15/18 10:00 08/15/18 11:23 Lopressor - PO 25 mg DAILY MIKY Administration Prednisone 40 mg 08/16/18 10:00 Deltasone - PO DAILY [facility] Impression 1. CKD 2. COPD 3. a-fib 4. HTN 5. hyperlipidemia 6. proteinuria 7. microscopic hematuria Plan - renal function is stable - check ua - cont treatment per primary team - avoid nsaids - can follow as outpt after discharge - avoid nephrotoxina
[2018-08-15] MEDS: DONEPEZIL HCL 5 MG TABLET (FP) PO SCH (22:08)
[2018-08-16 06:59] LABS: BASO % 0.2 % (0-2.0); EOS % 0.9 % (0-4.5); HEMATOCRIT 30.3 % (35.4-49); HEMOGLOBIN 10.7 GM/dL (11.7-16.9); LYMPH % 12.6 % (8-40); MCHC 35.4 g/dl (32.0-35.9); MEAN PLT VOLUME 8.4 fl (7.5-11.1); MONO % 8.5 % (3.8-10.2); NEUT % 77.8 % (42.8-82.8); PLATELET COUNT 220 K/MM3 (134-434); RBC 3.16 M/mm3 (4.00-5.60); RDW 14.6 % (11.9-15.9); WHITE BLOOD COUNT 5.1 K/mm3 (4.0-10.0)
[2018-08-16] MEDS: BUDESONIDE/FORMETEROL FUMARATE 80/4.5 mcg INHALER IH SCH ×2 (07:00→09:07)
[2018-08-16] MEDS ORDERED: PT OWN MED DRAWER 7, Y5N ONE ×3 (07:43→22:34)
[2018-08-16 07:58] LABS: ALBUMIN 3.4 g/dl (3.4-5.0); ALK PHOS 109 U/L (45-117); ANION GAP 9 MMOL/L (8-16); BILIRUBIN,TOTAL 0.8 mg/dL (0.2-1); BLOOD UREA NITROGEN 27 mg/dL (7-18); CALCIUM 8.9 mg/dL (8.5-10.1); CHLORIDE 100 mmol/L (98-107); CO2 32 mmol/L (21-32); CREATININE 2.1 mg/dL (0.55-1.3); GLUCOSE,RANDOM 92 mg/dL (74-106); POTASSIUM 3.9 mmol/L (3.5-5.1); SGOT/AST 13 U/L (15-37); SGPT/ALT 13 U/L (13-61); SODIUM 141 mmol/L (136-145); TOT PROT 6.7 g/dl (6.4-8.2)
[2018-08-16] MEDS: METOPROLOL TARTRATE 25 MG TABLET (FP) PO SCH (09:05)
[2018-08-16] MEDS: predniSONE 20 MG TABLET (UD) PO SCH (09:05)
[2018-08-16] MEDS: MEMANTINE HCL 5 MG TABLET (UD) PO SCH (09:05)
[2018-08-16] MEDS: ASPIRIN COATED 81 MG TABLET.EC PO SCH (09:05)
[2018-08-16] MEDS: ISOSORBIDE MONONITRATE 10 MG TABLET PO SCH (09:06)
--- NOTE | 2018-08-16 09:26 | PN ---
Progress Note, Physician - Current Medication List Current Medications: Active Medications Albuterol Sulfate (Ventolin 0.083% Nebulizer Soln -) 1 amp NEB Q4H PRN PRN Reason: SHORT OF BREATH/WHEEZING Aspirin (Ecotrin -) 81 mg PO DAILY [facility] Last Admin: 08/16/18 09:05 Dose: 81 mg Budesonide/Formoterol Fumarate (Symbicort 80/4.5mcg -) 2 puff IH BID [facility] Last Admin: 08/16/18 09:07 Dose: 2 puff Donepezil HCl (Aricept -) 5 mg PO HS [facility] Last Admin: 08/15/18 22:08 Dose: 5 mg Azithromycin 250 mg/ Dextrose 250 mls @ 250 mls/hr IVPB DAILY [facility] Stop: 08/19/18 09:59 Last Admin: 08/15/18 12:55 Dose: 250 mls/hr Isosorbide Mononitrate (Ismo -) 10 mg PO BID@0800,1500 [facility] Last Admin: 08/16/18 09:06 Dose: 10 mg Memantine (Namenda -) 5 mg PO DAILY [facility] Last Admin: 08/16/18 09:05 Dose: 5 mg Metoprolol Tartrate (Lopressor -) 25 mg PO DAILY [facility] Last Admin: 08/16/18 09:05 Dose: 25 mg Prednisone (Deltasone -) 40 mg PO DAILY [facility] Last Admin: 08/16/18 09:05 Dose: 40 mg - Objective Vital Signs: Vital Signs Temperature 98.1 F 08/16/18 08:35 Pulse Rate 70 08/16/18 08:35 Respiratory Rate 16 08/16/18 08:38 Blood Pressure 159/74 08/16/18 08:35 O2 Sat by Pulse Oximetry (%) 98 08/16/18 08:38 Cardiovascular: Yes: S1, S2 Respiratory: Yes: On Nasal O2, Rhonchi Gastrointestinal: Yes: Normal Bowel Sounds, Soft Labs: CBC, BMP 08/16/18 05:30 08/16/18 05:30 Assessment/Plan - Problems (1) Chest tightness Assessment/Plan: troponin slightly elevated also inc in creatinine--repeat telemtery echo asa lipid panel Code(s): R07.89 - OTHER CHEST PAIN (2) Elevated troponin I level Assessment/Plan: trend troponin tele cardiology noted Code(s): R74.8 - ABNORMAL LEVELS OF OTHER SERUM ENZYMES (3) CKD (chronic kidney disease) stage 3, GFR 30-59 ml/min Assessment/Plan: renal consult Code(s): N18.3 - CHRONIC KIDNEY DISEASE, STAGE 3 (MODERATE) (4) Copd Assessment/Plan: influenza negative pulm eval duoneb oxygen steroids po azithromycin bronchodilators (5) Hypomagnesemia Assessment/Plan: iv magnesium Code(s): E83.42 - HYPOMAGNESEMIA
[2018-08-16] MEDS: AZITHROMYCIN IVPB 250 MG in DEXTROSE 5%-WATER - 250 ML IVPB SCH (10:55)
[2018-08-16 10:56] LABS: URINE APPEARANCE CLEAR; URINE BILIRUBIN NEGATIVE (<2.0 mg/dL); URINE COLOR YELLOW; URINE GLUCOSE (UA) NEGATIVE (NEGATIVE); URINE KETONE NEGATIVE (NEGATIVE); URINE LEUK ESTERASE NEGATIVE (NEGATIVE); URINE NITRITE NEGATIVE (NEGATIVE); URINE PROTEIN 2+ (NEGATIVE); URINE UROBILINOGEN NEGATIVE mg/dL (0.2-1.0)
[2018-08-16 11:23] LABS: EPI CELLS RARE /HPF (FEW); URINE BACTERIA RARE /hpf (NONE SEEN)
--- NOTE | 2018-08-16 12:58 | PN ---
Progress Note, Physician History of Present Illness: Pt seen and examined at bedside. He is awake and alert. He denies chest pain. - Current Medication List Current Medications: Active Medications Albuterol Sulfate (Ventolin 0.083% Nebulizer Soln -) 1 amp NEB Q4H PRN PRN Reason: SHORT OF BREATH/WHEEZING Aspirin (Ecotrin -) 81 mg PO DAILY [facility] Last Admin: 08/16/18 09:05 Dose: 81 mg Budesonide/Formoterol Fumarate (Symbicort 80/4.5mcg -) 2 puff IH BID [facility] Last Admin: 08/16/18 09:07 Dose: 2 puff Donepezil HCl (Aricept -) 5 mg PO HS [facility] Last Admin: 08/15/18 22:08 Dose: 5 mg Azithromycin 250 mg/ Dextrose 250 mls @ 250 mls/hr IVPB DAILY [facility] Stop: 08/19/18 09:59 Last Admin: 08/16/18 10:55 Dose: 250 mls/hr Isosorbide Mononitrate (Ismo -) 10 mg PO BID@0800,1500 [facility] Last Admin: 08/16/18 09:06 Dose: 10 mg Memantine (Namenda -) 5 mg PO DAILY [facility] Last Admin: 08/16/18 09:05 Dose: 5 mg Metoprolol Tartrate (Lopressor -) 25 mg PO DAILY [facility] Last Admin: 08/16/18 09:05 Dose: 25 mg Prednisone (Deltasone -) 40 mg PO DAILY [facility] Last Admin: 08/16/18 09:05 Dose: 40 mg - Objective Vital Signs: Vital Signs Temperature 98.1 F 08/16/18 08:35 Pulse Rate 70 08/16/18 08:35 Respiratory Rate 16 08/16/18 08:38 Blood Pressure 159/74 08/16/18 08:35 O2 Sat by Pulse Oximetry (%) 98 08/16/18 08:38 Constitutional: Yes: Calm Eyes: Yes: Conjunctiva Clear HENT: Yes: Atraumatic Neck: Yes: Supple Cardiovascular: Yes: S1, S2 Respiratory: Yes: Wheezes Gastrointestinal: Yes: Normal Bowel Sounds, Soft Genitourinary: Yes: WNL Musculoskeletal: Yes: WNL Edema: No Neurological: Yes: Oriented Psychiatric: Yes: Oriented Labs: CBC, BMP 08/16/18 05:30 08/16/18 05:30 Problem List - Problems (1) Chest tightness Code(s): R07.89 - OTHER CHEST PAIN (2) CKD (chronic kidney disease) stage 3, GFR 30-59 ml/min Code(s): N18.3 - CHRONIC KIDNEY DISEASE, STAGE 3 (MODERATE) Assessment/Plan Current Medications Generic Name Dose Route Start Last Admin Trade Name Freq PRN Reason Stop Dose Admin Albuterol Sulfate 1 amp 08/14/18 23:22 Ventolin 0.083% Nebulizer Soln - NEB Q4H PRN SHORT OF BREATH/WHEEZING Aspirin 81 mg 08/15/18 10:00 08/16/18 09:05 Ecotrin - PO 81 mg DAILY MIKY Administration Budesonide/Formoterol Fumarate 2 puff 08/14/18 23:00 08/16/18 09:07 Symbicort 80/4.5mcg - IH 2 puff BID MIKY Administration Donepezil HCl 5 mg 08/15/18 22:00 08/15/18 22:08 Aricept - PO 5 mg HS MIKY Administration Azithromycin 250 mg/ Dextrose 250 mls @ 250 mls/hr 08/15/18 10:00 08/16/18 10 :55 IVPB 08/19/18 09:59 250 mls/hr DAILY MIKY Administration Isosorbide Mononitrate 10 mg 08/15/18 08:00 08/16/18 09:06 Ismo - PO 10 mg BID@0800,1500 MIKY Administration Memantine 5 mg 08/15/18 10:00 08/16/18 09:05 Namenda - PO 5 mg DAILY MIKY Administration Metoprolol Tartrate 25 mg 08/15/18 10:00 08/16/18 09:05 Lopressor - PO 25 mg DAILY MIKY Administration Prednisone 40 mg 08/16/18 10:00 08/16/18 09:05 Deltasone - PO 40 mg DAILY MIKY Administration Impression 1. CKD 2. COPD 3. a-fib 4. HTN 5. hyperlipidemia 6. proteinuria 7. microscopic hematuria Plan - renal function at baseline - ua reviewed - can see in office for workup - avoid nsaids - avoid nephrotoxins - smoking cessation
--- NOTE | 2018-08-16 14:59 | PN ---
Progress Note, COMPLEX DIRECTOR - Note Progress Note: Pt on pureed diet/nectar thick liquids.
[2018-08-16] MEDS: DONEPEZIL HCL 5 MG TABLET (FP) PO SCH (22:59)
[2018-08-17 04:14] LABS: SERUM IRON SATURATION 56 % (15-55); TOTAL IRON BINDING CAPACITY 202 ug/dL (250-450); UIBC 88 ug/dL (111-343)
[2018-08-17] MEDS: BUDESONIDE/FORMETEROL FUMARATE 80/4.5 mcg INHALER IH SCH ×3 (06:24→22:22)
[2018-08-17] MEDS ORDERED: PT OWN MED DRAWER 7, Y5N ONE ×2 (09:45→15:11)
[2018-08-17] MEDS: ASPIRIN COATED 81 MG TABLET.EC PO SCH (09:47)
[2018-08-17] MEDS: METOPROLOL TARTRATE 25 MG TABLET (FP) PO SCH (09:47)
[2018-08-17] MEDS: MEMANTINE HCL 5 MG TABLET (UD) PO SCH (09:47)
[2018-08-17] MEDS: predniSONE 20 MG TABLET (UD) PO SCH (09:47)
[2018-08-17] MEDS: ISOSORBIDE MONONITRATE 10 MG TABLET PO SCH ×2 (09:48→15:15)
[2018-08-17] MEDS: AZITHROMYCIN IVPB 250 MG in DEXTROSE 5%-WATER - 250 ML IVPB SCH (09:55)
--- NOTE | 2018-08-17 11:15 | PN ---
Progress Note, Physician Chief Complaint: Chest Tightness COPD exacerbation History of Present Illness: Previous notes and events reviewed awake and alert NAD denies chest pain complain of productive cough with yellow sputum Chest CT scan result pending - Current Medication List Current Medications: Active Medications Albuterol Sulfate (Ventolin 0.083% Nebulizer Soln -) 1 amp NEB Q4H PRN PRN Reason: SHORT OF BREATH/WHEEZING Aspirin (Ecotrin -) 81 mg PO DAILY [facility] Last Admin: 08/17/18 09:47 Dose: 81 mg Budesonide/Formoterol Fumarate (Symbicort 80/4.5mcg -) 2 puff IH BID [facility] Last Admin: 08/17/18 09:58 Dose: 2 puff Donepezil HCl (Aricept -) 5 mg PO HS [facility] Last Admin: 08/16/18 22:59 Dose: 5 mg Azithromycin 250 mg/ Dextrose 250 mls @ 250 mls/hr IVPB DAILY [facility] Stop: 08/19/18 09:59 Last Admin: 08/17/18 09:55 Dose: 250 mls/hr Isosorbide Mononitrate (Ismo -) 10 mg PO BID@0800,1500 [facility] Last Admin: 08/17/18 09:48 Dose: 10 mg Memantine (Namenda -) 5 mg PO DAILY [facility] Last Admin: 08/17/18 09:47 Dose: 5 mg Metoprolol Tartrate (Lopressor -) 25 mg PO DAILY [facility] Last Admin: 08/17/18 09:47 Dose: 25 mg Prednisone (Deltasone -) 40 mg PO DAILY [facility] Last Admin: 08/17/18 09:47 Dose: 40 mg - Objective Vital Signs: Vital Signs Temperature 97.5 F L 08/17/18 10:00 Pulse Rate 62 08/17/18 10:00 Respiratory Rate 20 08/17/18 10:00 Blood Pressure 150/54 L 08/17/18 10:00 O2 Sat by Pulse Oximetry (%) 98 08/16/18 21:56 Constitutional: Yes: Calm, Cachectic, Mild Distress Eyes: Yes: Conjunctiva Clear Cardiovascular: Yes: Regular Rate and Rhythm Respiratory: Yes: Diminished, On Nasal O2 Gastrointestinal: Yes: Normal Bowel Sounds, Soft Genitourinary: Yes: Incontinence Musculoskeletal: Yes: Muscle Weakness Extremities: Yes: WNL Edema: No Neurological: Yes: Alert, Pre-Existing Deficit Psychiatric: Yes: Alert Labs: CBC, BMP 08/16/18 05:30 08/16/18 05:30 Troponin, BNP 08/16/18 05:30 Troponin I 0.08 H <Carolyn Merritt - Last Filed: 08/17/18 11:21> - Current Medication List Current Medications: Active Medications Albuterol Sulfate (Ventolin 0.083% Nebulizer Soln -) 1 amp NEB Q4H PRN PRN Reason: SHORT OF BREATH/WHEEZING Aspirin (Ecotrin -) 81 mg PO DAILY [facility] Last Admin: 08/17/18 09:47 Dose: 81 mg Budesonide/Formoterol Fumarate (Symbicort 80/4.5mcg -) 2 puff IH BID [facility] Last Admin: 08/17/18 22:22 Dose: 2 puff Donepezil HCl (Aricept -) 5 mg PO HS [facility] Last Admin: 08/17/18 22:22 Dose: 5 mg Azithromycin 250 mg/ Dextrose 250 mls @ 250 mls/hr IVPB DAILY [facility] Stop: 08/19/18 09:59 Last Admin: 08/17/18 09:55 Dose: 250 mls/hr Isosorbide Mononitrate (Ismo -) 10 mg PO BID@0800,1500 [facility] Last Admin: 08/17/18 15:15 Dose: 10 mg Memantine (Namenda -) 5 mg PO DAILY [facility] Last Admin: 08/17/18 09:47 Dose: 5 mg Metoprolol Tartrate (Lopressor -) 25 mg PO DAILY [facility] Last Admin: 08/17/18 09:47 Dose: 25 mg Prednisone (Deltasone -) 40 mg PO DAILY [facility] Last Admin: 08/17/18 09:47 Dose: 40 mg - Objective Vital Signs: Vital Signs Temperature 97.2 F L 08/18/18 08:47 Pulse Rate 61 08/18/18 08:47 Respiratory Rate 18 08/18/18 08:47 Blood Pressure 146/71 08/18/18 08:47 O2 Sat by Pulse Oximetry (%) 96 08/17/18 22:00 Labs: CBC, BMP 08/18/18 08:00 08/18/18 08:00 <Glenny Marsh - Last Filed: 08/18/18 09:16> Problem List - Problems (1) Chest tightness Assessment/Plan: -cont ASA -lipid panel resuts nl -cardiology on board -echo results reviewed, LVEF 55-60% Code(s): R07.89 - OTHER CHEST PAIN (2) Elevated troponin I level Assessment/Plan: -last troponin 0.08 -will trend Code(s): R74.8 - ABNORMAL LEVELS OF OTHER SERUM ENZYMES (3) Hypomagnesemia Assessment/Plan: -resolved -will monitor and replete as needed Code(s): E83.42 - HYPOMAGNESEMIA (4) Mild chronic obstructive pulmonary disease Assessment/Plan: -pulmonary on board -O2 via NC -keep SpO2 >90% -PO prednisone -albuterol neb PRN for SOB -Chest CT scan pending Code(s): J44.9 - CHRONIC OBSTRUCTIVE PULMONARY DISEASE, UNSPECIFIED (5) CKD (chronic kidney disease) stage 3, GFR 30-59 ml/min Assessment/Plan: -nephrology on board -will monitor BUN/Cr level -avoid NSAIDs -avoid nephrotoxic drugs Code(s): N18.3 - CHRONIC KIDNEY DISEASE, STAGE 3 (MODERATE) <Carolyn Merritt - Last Filed: 08/17/18 11:21> Assessment/Plan DVT ppx <Carolyn Merritt - Last Filed: 08/17/18 11:21> PATIENT SEEN AND EXAMINED AND I AGREE WITH THE ABOVE NOTE <Glenny Marsh - Last Filed: 08/18/18 09:16>
--- NOTE | 2018-08-17 15:06 | PN ---
Progress Note (short form) - Note Progress Note: PULMONARY OFFERS NO COMPLAINTS APPEARS PALE AND CHRONICALLY ILL VSS Constitutional: Yes: No Distress, Thin Eyes: Yes: Conjunctiva Clear, EOM Intact HENT: Yes: Atraumatic, Normocephalic Neck: Yes: Supple, Trachea Midline Cardiovascular: Yes: Regular Rate and Rhythm Respiratory: Yes: Cough, Diminished, On Nasal O2, Rhonchi, Wheezes. No: Accessory Muscle Use, Rales, SOB, SOB on Exertion, Stridor, Tachypnea ...Inspection: Yes: WNL ...Clubbing: No Gastrointestinal: Yes: WNL, Normal Bowel Sounds, Soft Renal/: Yes: WNL Musculoskeletal: Yes: WNL Extremities: Yes: WNL Edema: No Peripheral Pulses WNL: Yes Integumentary: Yes: WNL Neurological: Yes: WNL, Alert, Oriented ...Motor Strength: WNL Psychiatric: Yes: WNL, Alert, Oriented LABS/MEDS/NOTES/IMAGES REVIEWED Problem List - Problems (1) Cough Code(s): R05 - COUGH (2) Poor appetite Code(s): R63.0 - ANOREXIA (3) COPD exacerbation Code(s): J44.1 - CHRONIC OBSTRUCTIVE PULMONARY DISEASE W (ACUTE) EXACERBATION (4) Chronic obstruct airways disease Code(s): J44.9 - CHRONIC OBSTRUCTIVE PULMONARY DISEASE, UNSPECIFIED (5) Hyperlipidemia Code(s): E78.5 - HYPERLIPIDEMIA, UNSPECIFIED Qualifiers: Hyperlipidemia type: pure hypercholesterolemia Qualified Code(s): E78.00 - Pure hypercholesterolemia, unspecified; E78.0 - Pure hypercholesterolemia (6) Hypertension Code(s): I10 - ESSENTIAL (PRIMARY) HYPERTENSION Qualifiers: Hypertension type: essential hypertension Qualified Code(s): I10 - Essential (primary) hypertension Prednisone O2 as needed Noted Zithromax No smoking discussed Patient can likely be discharged in the AM if stable/improved Noted Symbicort On discharge should be on LAMA/LABA PFTs after discharge Will follow Thank you.
[2018-08-17] MEDS: DONEPEZIL HCL 5 MG TABLET (FP) PO SCH (22:22)
[2018-08-18 08:59] LABS: HEMATOCRIT 29.2 % (35.4-49); HEMOGLOBIN 10.3 GM/dL (11.7-16.9); MCH 33.9 pg (25.7-33.7); MCHC 35.2 g/dl (32.0-35.9); MEAN CELL VOLUME 96.3 fl (80-96); MEAN PLT VOLUME 8.3 fl (7.5-11.1); PLATELET COUNT 214 K/MM3 (134-434); RBC 3.03 M/mm3 (4.00-5.60); WHITE BLOOD COUNT 8.3 K/mm3 (4.0-10.0)
[2018-08-18 09:01] LABS: ALBUMIN 3.2 g/dl (3.4-5.0); ALK PHOS 100 U/L (45-117); ANION GAP 5 MMOL/L (8-16); BILIRUBIN,TOTAL 0.4 mg/dL (0.2-1); BLOOD UREA NITROGEN 32 mg/dL (7-18); CALCIUM 8.3 mg/dL (8.5-10.1); CHLORIDE 102 mmol/L (98-107); CO2 35 mmol/L (21-32); CREATININE 2.2 mg/dL (0.55-1.3); GLUCOSE,RANDOM 93 mg/dL (74-106); POTASSIUM 4.1 mmol/L (3.5-5.1); SGOT/AST 12 U/L (15-37); SGPT/ALT 14 U/L (13-61); SODIUM 142 mmol/L (136-145)
[2018-08-18] MEDS: MEMANTINE HCL 5 MG TABLET (UD) PO SCH (09:36)
[2018-08-18] MEDS: ASPIRIN COATED 81 MG TABLET.EC PO SCH (09:36)
[2018-08-18] MEDS: ISOSORBIDE MONONITRATE 10 MG TABLET PO SCH ×2 (09:37→16:32)
[2018-08-18] MEDS: METOPROLOL TARTRATE 25 MG TABLET (FP) PO SCH (09:37)
[2018-08-18] MEDS: predniSONE 20 MG TABLET (UD) PO SCH (09:37)
[2018-08-18] MEDS: BUDESONIDE/FORMETEROL FUMARATE 80/4.5 mcg INHALER IH SCH ×2 (09:38→21:41)
--- NOTE | 2018-08-18 10:55 | PN ---
Progress Note, Physician Chief Complaint: Chest Tightness COPD exacerbation History of Present Illness: Previous notes and events reviewed awake and alert NAD denies chest pain complain of productive cough with yellow sputum Chest CT scan result pending - Current Medication List Current Medications: Active Medications Albuterol Sulfate (Ventolin 0.083% Nebulizer Soln -) 1 amp NEB Q4H PRN PRN Reason: SHORT OF BREATH/WHEEZING Aspirin (Ecotrin -) 81 mg PO DAILY [facility] Last Admin: 08/18/18 09:36 Dose: 81 mg Budesonide/Formoterol Fumarate (Symbicort 80/4.5mcg -) 2 puff IH BID [facility] Last Admin: 08/18/18 09:38 Dose: 2 puff Donepezil HCl (Aricept -) 5 mg PO HS [facility] Last Admin: 08/17/18 22:22 Dose: 5 mg Isosorbide Mononitrate (Ismo -) 10 mg PO BID@0800,1500 [facility] Last Admin: 08/18/18 09:37 Dose: 10 mg Memantine (Namenda -) 5 mg PO DAILY [facility] Last Admin: 08/18/18 09:36 Dose: 5 mg Metoprolol Tartrate (Lopressor -) 25 mg PO DAILY [facility] Last Admin: 08/18/18 09:37 Dose: Not Given Prednisone (Deltasone -) 40 mg PO DAILY [facility] Last Admin: 08/18/18 09:37 Dose: 40 mg - Objective Vital Signs: Vital Signs Temperature 97.2 F L 08/18/18 08:47 Pulse Rate 61 08/18/18 08:47 Respiratory Rate 18 08/18/18 08:47 Blood Pressure 146/71 08/18/18 08:47 O2 Sat by Pulse Oximetry (%) 96 08/17/18 22:00 Constitutional: Yes: No Distress, Calm, Cachectic Eyes: Yes: Conjunctiva Clear Neck: Yes: Supple Cardiovascular: Yes: Regular Rate and Rhythm Respiratory: Yes: Regular, Diminished, On Nasal O2 Gastrointestinal: Yes: Normal Bowel Sounds, Soft Genitourinary: Yes: Incontinence Musculoskeletal: Yes: Muscle Weakness Extremities: Yes: WNL Edema: No Neurological: Yes: Alert, Oriented Psychiatric: Yes: Alert, Oriented Labs: CBC, BMP 08/18/18 08:00 08/18/18 08:00 <Carolyn Merritt - Last Filed: 08/18/18 10:51> - Current Medication List Current Medications: Active Medications Albuterol Sulfate (Ventolin 0.083% Nebulizer Soln -) 1 amp NEB Q4H PRN PRN Reason: SHORT OF BREATH/WHEEZING Last Admin: 08/19/18 18:09 Dose: 1 amp Aspirin (Ecotrin -) 81 mg PO DAILY [facility] Last Admin: 08/19/18 10:16 Dose: 81 mg Budesonide/Formoterol Fumarate (Symbicort 80/4.5mcg -) 2 puff IH BID [facility] Last Admin: 08/19/18 21:20 Dose: 2 puff Donepezil HCl (Aricept -) 5 mg PO HS [facility] Last Admin: 08/19/18 21:20 Dose: 5 mg Isosorbide Mononitrate (Ismo -) 10 mg PO BID@0800,1500 [facility] Last Admin: 08/19/18 14:37 Dose: 10 mg Memantine (Namenda -) 5 mg PO DAILY [facility] Last Admin: 08/19/18 10:16 Dose: 5 mg Metoprolol Tartrate (Lopressor -) 25 mg PO DAILY [facility] Last Admin: 08/19/18 10:13 Dose: Not Given Prednisone (Deltasone -) 30 mg PO DAILY [facility] - Objective Vital Signs: Vital Signs Temperature 98.5 F 08/20/18 05:00 Pulse Rate 69 08/20/18 05:00 Respiratory Rate 20 08/20/18 05:00 Blood Pressure 157/74 08/20/18 05:00 O2 Sat by Pulse Oximetry (%) 98 08/19/18 22:00 Labs: CBC, BMP 08/19/18 07:41 08/19/18 07:41 <SalmaAmmir - Last Filed: 08/20/18 05:50> Problem List - Problems (1) Chest tightness Assessment/Plan: -cont ASA -lipid panel resuts nl -cardiology on board -echo results reviewed, LVEF 55-60% -BNP elev on 08/15, will repeat to monitor if down trend Code(s): R07.89 - OTHER CHEST PAIN (2) Elevated troponin I level Assessment/Plan: -08/18/18 troponin 0.03 -will trend Code(s): R74.8 - ABNORMAL LEVELS OF OTHER SERUM ENZYMES (3) Hypomagnesemia Assessment/Plan: -resolved -will monitor and replete as needed Code(s): E83.42 - HYPOMAGNESEMIA (4) Mild chronic obstructive pulmonary disease Assessment/Plan: -pulmonary on board -O2 via NC -keep SpO2 >90% -PO prednisone -albuterol neb PRN for SOB -Chest CT scan results pending Code(s): J44.9 - CHRONIC OBSTRUCTIVE PULMONARY DISEASE, UNSPECIFIED (5) CKD (chronic kidney disease) stage 3, GFR 30-59 ml/min Assessment/Plan: -nephrology on board -will monitor BUN/Cr level -avoid NSAIDs -avoid nephrotoxic drugs Code(s): N18.3 - CHRONIC KIDNEY DISEASE, STAGE 3 (MODERATE) <Carolyn Mreritt - Last Filed: 08/18/18 10:51> Assessment/Plan DVT ppx <Carolyn Merritt - Last Filed: 08/18/18 10:51> PATIENT SEEN AND EXAMINED AND I AGREE WITH THE ABOVE NOTE <Glenny Marsh - Last Filed: 08/20/18 05:50>
--- NOTE | 2018-08-18 14:26 | PN ---
Progress Note (short form) - Note Progress Note: PULMONARY OFFERS NO COMPLAINTS APPEARS PALE AND CHRONICALLY ILL VSS Constitutional: Yes: No Distress, Thin Eyes: Yes: Conjunctiva Clear, EOM Intact HENT: Yes: Atraumatic, Normocephalic Neck: Yes: Supple, Trachea Midline Cardiovascular: Yes: Regular Rate and Rhythm Respiratory: Yes: Cough, Diminished, On Nasal O2, Rhonchi, Wheezes. No: Accessory Muscle Use, Rales, SOB, SOB on Exertion, Stridor, Tachypnea ...Inspection: Yes: WNL ...Clubbing: No Gastrointestinal: Yes: WNL, Normal Bowel Sounds, Soft Renal/: Yes: WNL Musculoskeletal: Yes: WNL Extremities: Yes: WNL Edema: No Peripheral Pulses WNL: Yes Integumentary: Yes: WNL Neurological: Yes: WNL, Alert, Oriented ...Motor Strength: WNL Psychiatric: Yes: WNL, Alert, Oriented LABS/MEDS/NOTES/IMAGES REVIEWED Problem List - Problems (1) Cough Code(s): R05 - COUGH (2) Poor appetite Code(s): R63.0 - ANOREXIA (3) COPD exacerbation Code(s): J44.1 - CHRONIC OBSTRUCTIVE PULMONARY DISEASE W (ACUTE) EXACERBATION (4) Chronic obstruct airways disease Code(s): J44.9 - CHRONIC OBSTRUCTIVE PULMONARY DISEASE, UNSPECIFIED (5) Hyperlipidemia Code(s): E78.5 - HYPERLIPIDEMIA, UNSPECIFIED Qualifiers: Hyperlipidemia type: pure hypercholesterolemia Qualified Code(s): E78.00 - Pure hypercholesterolemia, unspecified; E78.0 - Pure hypercholesterolemia (6) Hypertension Code(s): I10 - ESSENTIAL (PRIMARY) HYPERTENSION Qualifiers: Hypertension type: essential hypertension Qualified Code(s): I10 - Essential (primary) hypertension Taper Prednisone O2 as needed Symbicort On discharge should be on LAMA/LABA PFTs after discharge Will follow Thank you.
[2018-08-18] MEDS ORDERED: PT OWN MED DRAWER 7, Y5N ONE (21:22)
[2018-08-18] MEDS: DONEPEZIL HCL 5 MG TABLET (FP) PO SCH (21:42)
[2018-08-19 08:58] LABS: HEMATOCRIT 29.1 % (35.4-49); HEMOGLOBIN 10.2 GM/dL (11.7-16.9); MCHC 35.2 g/dl (32.0-35.9); MEAN CELL VOLUME 96.4 fl (80-96); MEAN PLT VOLUME 8.3 fl (7.5-11.1); PLATELET COUNT 215 K/MM3 (134-434); RBC 3.02 M/mm3 (4.00-5.60); RDW 14.3 % (11.9-15.9); WHITE BLOOD COUNT 8.8 K/mm3 (4.0-10.0)
[2018-08-19 09:19] LABS: ALBUMIN 3.1 g/dl (3.4-5.0); ALK PHOS 110 U/L (45-117); ANION GAP 4 MMOL/L (8-16); BILIRUBIN,TOTAL 0.4 mg/dL (0.2-1); BLOOD UREA NITROGEN 35 mg/dL (7-18); CALCIUM 8.5 mg/dL (8.5-10.1); CHLORIDE 102 mmol/L (98-107); CO2 37 mmol/L (21-32); CREATININE 2.1 mg/dL (0.55-1.3); GLUCOSE,RANDOM 98 mg/dL (74-106); N-TERMINAL BNP 4374.8 pg/ml (5-450); POTASSIUM 4.9 mmol/L (3.5-5.1); SGOT/AST 18 U/L (15-37); SGPT/ALT 19 U/L (13-61); SODIUM 143 mmol/L (136-145)
[2018-08-19] MEDS: METOPROLOL TARTRATE 25 MG TABLET (FP) PO SCH (10:13)
[2018-08-19] MEDS: ISOSORBIDE MONONITRATE 10 MG TABLET PO SCH ×2 (10:16→14:37)
[2018-08-19] MEDS: predniSONE 20 MG TABLET (UD) PO SCH (10:16)
[2018-08-19] MEDS: BUDESONIDE/FORMETEROL FUMARATE 80/4.5 mcg INHALER IH SCH ×2 (10:16→21:20)
[2018-08-19] MEDS: MEMANTINE HCL 5 MG TABLET (UD) PO SCH (10:16)
[2018-08-19] MEDS: ASPIRIN COATED 81 MG TABLET.EC PO SCH (10:16)
[2018-08-19] MEDS ORDERED: predniSONE 10 MG TABLET (UD) PO SCH (11:34)
--- NOTE | 2018-08-19 11:39 | PN ---
Progress Note, Physician Chief Complaint: patient seen and exmained on nasal oxygen - Current Medication List Current Medications: Active Medications Albuterol Sulfate (Ventolin 0.083% Nebulizer Soln -) 1 amp NEB Q4H PRN PRN Reason: SHORT OF BREATH/WHEEZING Aspirin (Ecotrin -) 81 mg PO DAILY [facility] Last Admin: 08/19/18 10:16 Dose: 81 mg Budesonide/Formoterol Fumarate (Symbicort 80/4.5mcg -) 2 puff IH BID [facility] Last Admin: 08/19/18 10:16 Dose: 2 puff Donepezil HCl (Aricept -) 5 mg PO HS [facility] Last Admin: 08/18/18 21:42 Dose: 5 mg Isosorbide Mononitrate (Ismo -) 10 mg PO BID@0800,1500 [facility] Last Admin: 08/19/18 10:16 Dose: 10 mg Memantine (Namenda -) 5 mg PO DAILY [facility] Last Admin: 08/19/18 10:16 Dose: 5 mg Metoprolol Tartrate (Lopressor -) 25 mg PO DAILY [facility] Last Admin: 08/19/18 10:13 Dose: Not Given Prednisone (Deltasone -) 30 mg PO DAILY [facility] - Objective Vital Signs: Vital Signs Temperature 97.7 F 08/19/18 08:58 Pulse Rate 61 08/19/18 08:58 Respiratory Rate 18 08/19/18 08:58 Blood Pressure 151/67 08/19/18 08:58 O2 Sat by Pulse Oximetry (%) 99 08/18/18 22:00 Constitutional: Yes: Calm, Thin Cardiovascular: Yes: Regular Rate and Rhythm, S1, S2 Respiratory: Yes: Diminished Gastrointestinal: Yes: Normal Bowel Sounds, Soft Edema: No Neurological: Yes: Alert, Oriented Labs: CBC, BMP 08/19/18 07:41 08/19/18 07:41 Problem List - Problems (1) Chest tightness Assessment/Plan: troponin slightly elevated also inc in creatinine telemtery echo asa lipid panel Code(s): R07.89 - OTHER CHEST PAIN (2) Elevated troponin I level Assessment/Plan: trend troponin tele cardiology Code(s): R74.8 - ABNORMAL LEVELS OF OTHER SERUM ENZYMES (3) CKD (chronic kidney disease) stage 3, GFR 30-59 ml/min Assessment/Plan: renal consult Code(s): N18.3 - CHRONIC KIDNEY DISEASE, STAGE 3 (MODERATE) (4) Cough Assessment/Plan: influenza negative pulm eval duoneb oxygen steroids po azithromycin bronchodilators Code(s): R05 - COUGH (5) Hypomagnesemia Assessment/Plan: iv magnesium Code(s): E83.42 - HYPOMAGNESEMIA
--- NOTE | 2018-08-19 11:46 | PN ---
Progress Note (short form) - Note Progress Note: PULMONARY Denies shortness of breath, cough or wheezing. CT chest not read yet but appears to have a RUL peripheral nodule as well as basilar atelectasis. Vital Signs Period Temp Pulse Resp BP Sys/Puente Pulse Ox Last 24 Hr 97.7 F-98.8 F 61-74 18-20 123-151/55-73 99-99 Gen: NAD at rest Heart: RRR Lung: decreased breath sounds at the bases Abd: soft, nontender Ext: no edema CBC, BMP 08/19/18 07:41 08/19/18 07:41 Active Medications Albuterol Sulfate (Ventolin 0.083% Nebulizer Soln -) 1 amp NEB Q4H PRN PRN Reason: SHORT OF BREATH/WHEEZING Aspirin (Ecotrin -) 81 mg PO DAILY [facility] Last Admin: 08/19/18 10:16 Dose: 81 mg Budesonide/Formoterol Fumarate (Symbicort 80/4.5mcg -) 2 puff IH BID [facility] Last Admin: 08/19/18 10:16 Dose: 2 puff Donepezil HCl (Aricept -) 5 mg PO HS [facility] Last Admin: 08/18/18 21:42 Dose: 5 mg Isosorbide Mononitrate (Ismo -) 10 mg PO BID@0800,1500 [facility] Last Admin: 08/19/18 10:16 Dose: 10 mg Memantine (Namenda -) 5 mg PO DAILY [facility] Last Admin: 08/19/18 10:16 Dose: 5 mg Metoprolol Tartrate (Lopressor -) 25 mg PO DAILY [facility] Last Admin: 08/19/18 10:13 Dose: Not Given Prednisone (Deltasone -) 30 mg PO DAILY [facility] A/P COPD Chronic Hypoxic Respiratory Failure CKD Lung Nodule - inhaled bronchodilators as needed - O2 to keep SpO2 >90% - prednisone taper - will need outpt f/u of chest imaging - DVT prophylaxis
--- NOTE | 2018-08-19 15:57 | PN ---
Progress Note, Physician History of Present Illness: Pt seen and examined at bedside. He is awake and alert. He denies dysuria. - Current Medication List Current Medications: Active Medications Albuterol Sulfate (Ventolin 0.083% Nebulizer Soln -) 1 amp NEB Q4H PRN PRN Reason: SHORT OF BREATH/WHEEZING Aspirin (Ecotrin -) 81 mg PO DAILY [facility] Last Admin: 08/19/18 10:16 Dose: 81 mg Budesonide/Formoterol Fumarate (Symbicort 80/4.5mcg -) 2 puff IH BID [facility] Last Admin: 08/19/18 10:16 Dose: 2 puff Donepezil HCl (Aricept -) 5 mg PO HS [facility] Last Admin: 08/18/18 21:42 Dose: 5 mg Isosorbide Mononitrate (Ismo -) 10 mg PO BID@0800,1500 [facility] Last Admin: 08/19/18 14:37 Dose: 10 mg Memantine (Namenda -) 5 mg PO DAILY [facility] Last Admin: 08/19/18 10:16 Dose: 5 mg Metoprolol Tartrate (Lopressor -) 25 mg PO DAILY [facility] Last Admin: 08/19/18 10:13 Dose: Not Given Prednisone (Deltasone -) 30 mg PO DAILY [facility] - Objective Vital Signs: Vital Signs Temperature 98.2 F 08/19/18 15:23 Pulse Rate 90 08/19/18 15:23 Respiratory Rate 18 08/19/18 08:58 Blood Pressure 135/63 08/19/18 15:23 O2 Sat by Pulse Oximetry (%) 99 08/18/18 22:00 Constitutional: Yes: Calm Eyes: Yes: Conjunctiva Clear HENT: Yes: Atraumatic Neck: Yes: Supple Cardiovascular: Yes: S1, S2 Respiratory: Yes: Wheezes Gastrointestinal: Yes: Soft Genitourinary: Yes: WNL Musculoskeletal: Yes: WNL Edema: No Neurological: Yes: Oriented Psychiatric: Yes: Oriented Labs: CBC, BMP 08/19/18 07:41 08/19/18 07:41 Problem List - Problems (1) Chest tightness Code(s): R07.89 - OTHER CHEST PAIN (2) CKD (chronic kidney disease) stage 3, GFR 30-59 ml/min Code(s): N18.3 - CHRONIC KIDNEY DISEASE, STAGE 3 (MODERATE) Assessment/Plan Current Medications Generic Name Dose Route Start Last Admin Trade Name Luz Elena PRN Reason Stop Dose Admin Albuterol Sulfate 1 amp 08/14/18 23:22 Ventolin 0.083% Nebulizer Soln - NEB Q4H PRN SHORT OF BREATH/WHEEZING Aspirin 81 mg 08/15/18 10:00 08/19/18 10:16 Ecotrin - PO 81 mg DAILY [facility] Administration Budesonide/Formoterol Fumarate 2 puff 08/14/18 23:00 08/19/18 10:16 Symbicort 80/4.5mcg - IH 2 puff BID [facility] Administration Donepezil HCl 5 mg 08/15/18 22:00 08/18/18 21:42 Aricept - PO 5 mg HS [facility] Administration Isosorbide Mononitrate 10 mg 08/15/18 08:00 08/19/18 14:37 Ismo - PO 10 mg BID@0800,1500 [facility] Administration Memantine 5 mg 08/15/18 10:00 08/19/18 10:16 Namenda - PO 5 mg DAILY [facility] Administration Metoprolol Tartrate 25 mg 08/15/18 10:00 08/19/18 10:13 Lopressor - PO Not Given DAILY [facility] Prednisone 30 mg 08/19/18 11:34 Deltasone - PO DAILY [facility] Impression 1. CKD 2. COPD 3. a-fib 4. HTN 5. hyperlipidemia 6. proteinuria 7. microscopic hematuria Plan - renal function is stable - steriods with taper - will see in office - avoid nsaids
[2018-08-19] MEDS: DONEPEZIL HCL 5 MG TABLET (FP) PO SCH (21:20)
[2018-08-20] MEDS ORDERED: PT OWN MED DRAWER 7, Y5N ONE ×2 (09:39→13:26)
[2018-08-20] MEDS: ASPIRIN COATED 81 MG TABLET.EC PO SCH (09:45)
[2018-08-20] MEDS: ISOSORBIDE MONONITRATE 10 MG TABLET PO SCH ×3 (09:45→22:21)
[2018-08-20] MEDS: METOPROLOL TARTRATE 25 MG TABLET (FP) PO SCH (09:46)
[2018-08-20] MEDS: BUDESONIDE/FORMETEROL FUMARATE 80/4.5 mcg INHALER IH SCH ×2 (09:47→22:55)
[2018-08-20] MEDS: MEMANTINE HCL 5 MG TABLET (UD) PO SCH (09:49)
--- NOTE | 2018-08-20 10:06 | PN ---
Progress Note, Physician - Current Medication List Current Medications: Active Medications Albuterol Sulfate (Ventolin 0.083% Nebulizer Soln -) 1 amp NEB Q4H PRN PRN Reason: SHORT OF BREATH/WHEEZING Last Admin: 08/19/18 18:09 Dose: 1 amp Aspirin (Ecotrin -) 81 mg PO DAILY [facility] Last Admin: 08/20/18 09:45 Dose: 81 mg Budesonide/Formoterol Fumarate (Symbicort 80/4.5mcg -) 2 puff IH BID [facility] Last Admin: 08/20/18 09:47 Dose: 2 puff Donepezil HCl (Aricept -) 5 mg PO HS [facility] Last Admin: 08/19/18 21:20 Dose: 5 mg Isosorbide Mononitrate (Ismo -) 10 mg PO BID@0800,1500 [facility] Last Admin: 08/20/18 09:45 Dose: 10 mg Memantine (Namenda -) 5 mg PO DAILY [facility] Last Admin: 08/20/18 09:49 Dose: 5 mg Metoprolol Tartrate (Lopressor -) 25 mg PO DAILY [facility] Last Admin: 08/20/18 09:46 Dose: 25 mg Prednisone (Deltasone -) 30 mg PO DAILY [facility] Last Admin: 08/20/18 09:46 Dose: 30 mg - Objective Vital Signs: Vital Signs Temperature 98.5 F 08/20/18 05:00 Pulse Rate 69 08/20/18 05:00 Respiratory Rate 20 08/20/18 05:00 Blood Pressure 157/74 08/20/18 05:00 O2 Sat by Pulse Oximetry (%) 98 08/19/18 22:00 Labs: CBC, BMP 08/19/18 07:41 08/19/18 07:41 Assessment/Plan - Problems (1) Chest tightness Assessment/Plan: troponin slightly elevated also inc in creatinine off telemtery asa cardio noted Code(s): R07.89 - OTHER CHEST PAIN (2) Weakness Assessment/Plan: dc planning physical therapy (3) CKD (chronic kidney disease) stage 3, GFR 30-59 ml/min Assessment/Plan: renal consult noted Code(s): N18.3 - CHRONIC KIDNEY DISEASE, STAGE 3 (MODERATE) (4) Cough Assessment/Plan: influenza negative pulm eval duoneb oxygen steroids po azithromycin bronchodilators Code(s): R05 - COUGH (5) Hypomagnesemia Assessment/Plan: magnesium given Code(s): E83.42 - HYPOMAGNESEMIA
--- NOTE | 2018-08-20 11:22 | PN ---
Progress Note (short form) - Note Progress Note: PULMONARY Denies shortness of breath, cough or wheezing. Vital Signs Period Temp Pulse Resp BP Sys/Puente Pulse Ox Last 24 Hr 97.8 F-98.6 F 69-93 18-20 134-157/63-74 98-98 Gen: NAD at rest Heart: RRR Lung: decreased breath sounds at the bases Abd: soft, nontender Ext: no edema CBC, BMP 08/19/18 07:41 08/19/18 07:41 Active Medications Albuterol Sulfate (Ventolin 0.083% Nebulizer Soln -) 1 amp NEB Q4H PRN PRN Reason: SHORT OF BREATH/WHEEZING Last Admin: 08/19/18 18:09 Dose: 1 amp Aspirin (Ecotrin -) 81 mg PO DAILY [facility] Last Admin: 08/20/18 09:45 Dose: 81 mg Budesonide/Formoterol Fumarate (Symbicort 80/4.5mcg -) 2 puff IH BID [facility] Last Admin: 08/20/18 09:47 Dose: 2 puff Donepezil HCl (Aricept -) 5 mg PO HS [facility] Last Admin: 08/19/18 21:20 Dose: 5 mg Isosorbide Mononitrate (Ismo -) 10 mg PO BID@0800,1500 [facility] Last Admin: 08/20/18 09:45 Dose: 10 mg Memantine (Namenda -) 5 mg PO DAILY [facility] Last Admin: 08/20/18 09:49 Dose: 5 mg Metoprolol Tartrate (Lopressor -) 25 mg PO DAILY [facility] Last Admin: 08/20/18 09:46 Dose: 25 mg Prednisone (Deltasone -) 30 mg PO DAILY [facility] Last Admin: 08/20/18 09:46 Dose: 30 mg A/P COPD Chronic Hypoxic Respiratory Failure CKD Lung Nodule - inhaled bronchodilators as needed - O2 to keep SpO2 >90% - will decrease prednisone - will need outpt f/u of chest imaging - DVT prophylaxis
--- NOTE | 2018-08-20 12:06 | PN ---
Progress Note, INTERPRETER - Note Progress Note: Selected Entries 08/19/18 08/19/18 08/19/18 07:07 08:58 10:09 Breakfast 50% Lunch Supper Temperature 98.0 F 97.7 F 08/19/18 08/19/18 08/19/18 14:13 15:23 21:49 Breakfast Lunch 75% Supper 50% Temperature 98.2 F 98.6 F 08/19/18 08/20/18 08/20/18 21:58 05:00 10:14 Breakfast 75% Lunch Supper Temperature 97.8 F 98.5 F Laboratory Tests 08/19/18 07:41 WBC 8.8 Good appetite/self feeds but does not use compensatory strategies independently Mbs reviewed at length with pt, family and staff. Weakened swallow reflex Aspiration on thin liquid. Stasis with puree. Rec:Thinned out puree with added gravy/soup [place] thick liquid Chin tuck, effortful swallow x 2 per bite/sip Alt puree/liquid Ensure compact x 3 Supervision with meals Consider STR for PT/Sp/sw tx
--- NOTE | 2018-08-20 13:29 | CONSULT ---
Consult Consult Specialty:: PM&R Dr Grace for Dr Mas - History of Present Illness Chief Complaint: decreased endurance History of Present Illness: This is a 77 year old man with a medical history of HTN, HLD, COPD on home O2, renal insufficiency, who presented to the ED 08/14/18 with chest tightness, SOB and non-productive cough x2 days. Pulm was consulted, who agreed with Prednisone and supplemental O2 for COPD exacerbation; he also received Azithromycin for possible PNA. Cardiology was consulted for chest tightness and mildly elevated troponin, who ruled out CHF exacerbation and ACS. Renal was consulted for CKD as well. CT chest showed mild to moderate COPD without acute pathology including PNA. He was seen by PT, and on 08/20/18 he was Minimum Assist in Transfers, and ambulated 5 feet Contact Guard with Standard Walker. Physiatry is being consulted for further recommendations. - Past Medical History Cardio/Vascular: Yes: HTN, Hyperlipdemia Pulmonary: Yes: COPD, O2 Dependent Renal/: Yes: Renal Inusuff Additional Medical History: gu surgery as a child; cyst on back - Past Surgical History Past Surgical History: Yes: Appendectomy, Stent (Possibly aortic, patient is unsure) - Alcohol/Substance Use Hx Alcohol Use: No History of Substance Use: reports: None - Smoking History Smoking history: Former smoker Have you smoked in the past 12 months: No Aproximately how many cigarettes per day: 30 If you are a former smoker, when did you quit?: 2013 - Social History Usual Living Arrangement: Other (lives with and son in 2nd floor walk-up apartment with about 15 steps to enter) ADL: Family Assistance (ambulated with RW) 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 History of Recent Travel: No Home Medications - Allergies Allergies/Adverse Reactions: Allergies Allergy/AdvReac Type Severity Reaction Status Date / Time iodine Allergy Verified 08/14/18 18:12 - Home Medications Home Medications: Ambulatory Orders Albuterol 0.083% Nebulizer Mami [Ventolin 0.083% Nebulizer Soln -] 1 amp NEB Q4H PRN #0 amp 04/28/16 Aspirin Coated [Ecotrin -] 81 mg PO DAILY tablet.ec 04/28/16 Budesonide/Formeterol Fumarate [SYMBICORT 80/4.5mcg -] 2 puff IH BID inhaler 10 /07/16 Albuterol Sulfate [Proair Hfa] 8.5 gm IH TID 08/14/18 Donepezil HCl 5 mg PO HS 08/14/18 Isosorbide Mononitrate [Imdur -] 10 mg PO BID 08/14/18 Memantine HCl [Namenda -] 5 mg PO DAILY 08/14/18 Metoprolol Tartrate [Lopressor -] 25 mg PO DAILY 08/14/18 Review of Systems Findings/Remarks: Denies fevers, chills, changes in vision/ hearing/ mood, CP, abdominal pain, nausea, vomiting, constipation, diarrhea, dysuria, numbness/ paresthesias, or muscle/ joint pain. Notes SOB, controlled on supplemental O2. Physical Exam Vital Signs: Vital Signs Temperature 98.5 F 08/20/18 05:00 Pulse Rate 69 08/20/18 05:00 Respiratory Rate 20 08/20/18 05:00 Blood Pressure 157/74 08/20/18 05:00 O2 Sat by Pulse Oximetry (%) 98 08/19/18 22:00 Musculoskeletal: Yes: Other (General: calm thin elderly M sitting in chair NAD, AAO x2 (not place) on supplemental O2 N/M: B shoulder flexion to 90 degrees, 4+/5 BUE, 4/5 B HF then 4+/5 BLE; Pinprick Intact BUE/ BLE Extremities : no BLE pitting edema, no B calf tenderness) Labs: CBC, BMP 08/19/18 07:41 08/19/18 07:41 Imaging - Results Cat Scan: Report Reviewed (CT chest 08/16/18 showed mild- mod COPD without acute pathology) Assessment/Plan Impression: 1) Deficits mobility/ ADLs 2) Deconditioning 3) Gait abnormality 4) COPD exacerbation 5) hx HTN, HLD, COPD on home O2 6) Renal insufficiency 7) Underweight/ malnourished 8) Anemia 9) Up to date flu shot/ pneumovax Recommendations: 1) PT for stretching strengthening ROM and functional mobility 2) Falls, safety precautions 3) Cardiopulmonary precautions 4) Denies constipation on current bowel regimen 5) Skin protection: float heels, frequent turning 6) Monitor CBC given anemia 7) Monitor BMP given renal function 8) Nutrition consult for underweight 9) Continue plan per primary team 10) Discharge planning: d/w dtr, son and pt that he would benefit from inpatient rehabiliation once medically stable due improve weakness and decreased endurance. Family in agreement with plan. Thank you for this referral.
[2018-08-20] MEDS: DONEPEZIL HCL 5 MG TABLET (FP) PO SCH (22:55)
--- NOTE | 2018-08-21 08:46 | DS ---
Physical Examination Vital Signs: Vital Signs Temperature 98.2 F 08/21/18 06:12 Pulse Rate 60 08/21/18 06:12 Respiratory Rate 20 08/21/18 06:12 Blood Pressure 154/64 08/21/18 06:12 O2 Sat by Pulse Oximetry (%) 100 08/20/18 22:00 Cardiovascular: Yes: S1, S2 Respiratory: Yes: Diminished, On Nasal O2 Gastrointestinal: Yes: Normal Bowel Sounds, Soft Labs: CBC, BMP 08/19/18 07:41 08/19/18 07:41 Discharge Summary Reason For Visit: ELEVATED BRAIN NATRIURETIC PEPTIDE LEVEL ELEVATED Current Active Problems Chest tightness (Acute) Cough (Acute) Elevated troponin I level (Acute) Hypomagnesemia (Acute) Mild chronic obstructive pulmonary disease (Acute) Poor appetite (Acute) CKD (chronic kidney disease) stage 3, GFR 30-59 ml/min (Chronic) Hospital Course: - Problems (1) Chest tightness Assessment/Plan: troponin slightly elevated also inc in creatinine off telemtery asa cardio noted Code(s): R07.89 - OTHER CHEST PAIN (2) Weakness Assessment/Plan: dc planning to snf physical therapy (3) CKD (chronic kidney disease) stage 3, GFR 30-59 ml/min Assessment/Plan: renal consult noted Code(s): N18.3 - CHRONIC KIDNEY DISEASE, STAGE 3 (MODERATE) (4) Cough Assessment/Plan: influenza negative pulm eval duoneb oxygen steroids po azithromycin bronchodilators Code(s): R05 - COUGH (5) Hypomagnesemia Assessment/Plan: magnesium given Code(s): E83.42 - HYPOMAGNESEMIA Condition: Stable - Instructions Diet, Activity, Other Instructions: repeat Ct scan of Chest w/o contrast in 6 weeks to look at lung nodules Referrals: Glenny Marsh MD [Primary Care Provider] - Disposition: CUSTODIAL FACILITY - Home Medications Comprehensive Discharge Medication List: Ambulatory Orders Albuterol 0.083% Nebulizer Mami [Ventolin 0.083% Nebulizer Soln -] 1 amp NEB Q4H PRN #0 amp 04/28/16 Aspirin Coated [Ecotrin -] 81 mg PO DAILY tablet.ec 04/28/16 Budesonide/Formeterol Fumarate [SYMBICORT 80/4.5mcg -] 2 puff IH BID inhaler Albuterol Sulfate [Proair Hfa] 8.5 gm IH TID 08/14/18 Donepezil HCl 5 mg PO HS 08/14/18 Isosorbide Mononitrate [Imdur -] 10 mg PO BID 08/14/18 Memantine HCl [Namenda -] 5 mg PO DAILY 08/14/18 Metoprolol Tartrate [Lopressor -] 25 mg PO DAILY 08/14/18 Isosorbide Mononitrate [Monoket -] 10 mg PO BID@0800,1500 tablet 08/21/18 predniSONE [Deltasone -] 20 mg PO DAILY tablet 08/21/18
[2018-08-21] MEDS ORDERED: predniSONE 20 MG TABLET (UD) PO SCH (10:00)
[2018-08-21] MEDS: ISOSORBIDE MONONITRATE 10 MG TABLET PO SCH (10:15)
[2018-08-21] MEDS: MEMANTINE HCL 5 MG TABLET (UD) PO SCH (10:15)
[2018-08-21] MEDS: ASPIRIN COATED 81 MG TABLET.EC PO SCH (10:15)
[2018-08-21] MEDS: BUDESONIDE/FORMETEROL FUMARATE 80/4.5 mcg INHALER IH SCH (10:15)
[2018-08-21] MEDS: METOPROLOL TARTRATE 25 MG TABLET (FP) PO SCH (10:18)
[2018-08-21 11:42] VITALS: BP 110/57; PULSE 69; TEMP 98.2
== END 2018-08-21 12:04 | DRG 190 ==
LOC: JER 18:02 → JERBED 21:54 → J4W 08-15 15:20 → J6S 08-16 10:12
PROVIDERS: ADMIT Family Medicine; ATTEND Family Medicine
DX: J44.1 Chronic obstructive pulmonary disease with (acute) exacerbation (principal); E43 Unspecified severe protein-calorie malnutrition; Z68.1 Body mass index [BMI] 19.9 or less, adult; J96.11 Chronic respiratory failure with hypoxia; R64 Cachexia; I12.9 Hypertensive chronic kidney disease with stage 1 through stage 4 chronic kidney disease, or unspecified chronic kidney disease; N18.3 Chronic kidney disease, stage 3 (moderate); F03.90 Unspecified dementia, unspecified severity, without behavioral disturbance, psychotic disturbance, mood disturbance, and anxiety; R74.8 Abnormal levels of other serum enzymes; R07.89 Other chest pain; R31.29 Other microscopic hematuria; R05 Cough; E83.42 Hypomagnesemia; Z99.81 Dependence on supplemental oxygen; R91.1 Solitary pulmonary nodule; D64.9 Anemia, unspecified; R53.1 Weakness
CPT/HCPCS: 36415; 71045-TC-FY; 71250-TC; 74230-TC-FY; 80048; 80053; 80061; 81003; 81015; 82550; 82728; 83540; 83550; 83721; 83735; 83880; 84100; 84484; 85025; 85027; 87804; 90688; 92611-GN; 93005; 93010; 93306-TC; 94640; 97116-GP; 97162-GP; 99283-25; G0008

== ENCOUNTER 2018-08-28 17:24 | Observation (INO) | payer OTHER ==
--- NOTE | 2018-08-28 18:24 | PDOC ---
History of Present Illness - General Chief Complaint: Revisit, Lab Variance Stated Complaint: ABD LABS Time Seen by Provider: 08/28/18 18:23 - History of Present Illness Initial Comments: 08/28/18 18:24 77 year old man from [facility], presenting with a history of dementia, HTN, HLD, CKD , COPD (2L NC at home) who presents with elevated BUN and Cr from baseline and with weakness for 1 day. The patient has normally very minimally verbal answering yes and no. The patient otherwise has had no changes in food intake, has not had fevers, has not had changes in mentation. The patient is unable to provide further history. BUN 30, Cr 2.4, Na 150 Baseline per prior records: BUN 30s, Cr. 2.[address] [facility] nursing phone call Per nursing facility the patient still makes urine and does not get dialysis and has chronically elevated troponins. Past History - Past Medical History Allergies/Adverse Reactions: Allergies Allergy/AdvReac Type Severity Reaction Status Date / Time iodine Allergy Verified 08/14/18 18:12 Home Medications: Ambulatory Orders Albuterol 0.083% Nebulizer Mami [Ventolin 0.083% Nebulizer Soln -] 1 amp NEB Q4H PRN #0 amp 04/28/16 Aspirin Coated [Ecotrin -] 81 mg PO DAILY tablet.ec 04/28/16 Budesonide/Formeterol Fumarate [SYMBICORT 80/4.5mcg -] 2 puff IH BID inhaler Albuterol Sulfate [Proair Hfa] 8.5 gm IH TID 08/14/18 Donepezil HCl 5 mg PO HS 08/14/18 Isosorbide Mononitrate [Imdur -] 10 mg PO BID 08/14/18 Memantine HCl [Namenda -] 5 mg PO DAILY 08/14/18 Metoprolol Tartrate [Lopressor -] 25 mg PO DAILY 08/14/18 Isosorbide Mononitrate [Monoket -] 10 mg PO BID@0800,1500 tablet 08/21/18 predniSONE [Deltasone -] 20 mg PO DAILY tablet 08/21/18 Anemia: No Asthma: Yes Cancer: No Cardiac Disorders: Yes CVA: No COPD: Yes CHF: No Dementia: Yes Diabetes: No GI Disorders: No Disorders: Yes (ckd) HTN: Yes Hypercholesterolemia: Yes Liver Disease: No Seizures: No Thyroid Disease: Yes - Surgical History Abdominal Surgery: Yes (URETER TUBE CHILD) Appendectomy: Yes Cardiac Surgery: No Cholecystectomy: No Lung Surgery: No Neurologic Surgery: Yes (cyst removed from spine) Orthopedic Surgery: No - Immunization History Td Vaccination: No TDAP Vaccination: No Immunization Up to Date: No - Suicide/Smoking/Psychosocial Hx Smoking Status: Yes Smoking History: Former smoker Have you smoked in the past 12 months: No Number of Cigarettes Smoked Daily: 30 If you are a former smoker, when did you quit?: 2013 'Breaking Loose' booklet given: 08/15/18 Hx Alcohol Use: No Drug/Substance Use Hx: No Substance Use Type: None Hx Substance Use Treatment: No Review of Systems - Review of Systems Able to Perform ROS?: No (2/2 dementia) ED Treatment Course - LABORATORY CBC & Chemistry Diagram: 08/28/18 19:16 08/28/18 19:16 Medical Decision Making - Medical Decision Making 08/28/18 18:45 77 year old man from [facility], presenting with a history of dementia, HTN, HLD, CKD , COPD (2L NC at home) who presents with elevated BUN and Cr from baseline and with weakness for 1 day. The patient has normally very minimally verbal answering yes and no. The patient otherwise has had no changes in food intake, has not had fevers, has not had changes in mentation. ED Course: consider ALLEN on CKD vs sepsis w/ renal failure vs infectious consider uti vs pna weakness consider electrolytes derangement less likely sepsis as patient with bp of 138/90s, satting 99 on 3L NC, HR of 83 will check rectal temp cbc, cmp, vbg, ekg, cxr, ua, ucx, lactic *DC/Admit/Observation/Transfer - Referrals Referrals: Debra Waters MD [Primary Care Provider] - - Patient Instructions - Post Discharge Activity
--- NOTE | 2018-08-28 19:22 | PDOC ---
Attending Attestation - HPI HPI: 08/28/18 19:47 The patient is a 77 year old male with a significant PMH of dementia, HTN, HLD, CKD, and COPD (2L NC at home), sent in from [facility], who presents to the emergency department with elevated BUN and creatinine from baseline and one day history of weakness. As per NM, patient has not had any changes in appetite or urinary symptoms. Patient is unable to provide further history. Allergies: NKA Past surgical history: None reported. Social history: No reported alcohol, drug or cigarette use. PCP: Dr. Escobar = - Physicial Exam PE: 08/28/18 19:47 ADULT PHYSICAL EXAM Constitutional: Awake and alert. (+) cachectic. Head: Normocephalic. Atraumatic Eyes: PERRL. EOMI. Conjunctivae are not pale. ENT: (+) Dry mucus membranes. Posterior pharynx without exudates or erythema. Uvula midline. Neck: Supple. Full ROM. No lymphadenopathy. Cardiovascular: Regular rate. Regular rhythm. S1, S2 regular. Distal pulses are 2+ and symmetric. Pulmonary/Chest: (+) On nasal cannula, chronically. Clear to auscultation bilaterally No wheezing, rales or rhonchi. Abdominal: (+) scaphoid abdomen. There is no tenderness. Back: No CVA tenderness. Musculoskeletal: (+) No muscle mass. No edema. Full range of motion in all extremities. No calf tenderness. Radial/pedal pulses are intact and 2+ bilaterally Skin: (+) Flaking skin, skin tense. Psychiatric: Good eye contact. Normal interaction, affect and behavior. <Jada Fofana - Last Filed: 08/28/18 19:52> - Resident Resident Name: Jina Mendoza - ED Attending Attestation I have performed the following: I have examined & evaluated the patient, The case was reviewed & discussed with the resident, I agree w/resident's findings & plan, Exceptions are as noted - Medical Decision Making 08/28/18 19:22 I, Dr. Tiki Gloria, DO, attest that this document has been prepared under my direction and personally reviewed by me in its entirety. I further attest, that it accurately reflects all work, treatment, procedures and medical decision -making performed by me. 08/28/18 19:26 cxr clear 08/28/18 20:33 a/p: 77yo male from [facility] for eval of elevated bun/cr on labs and elevated sodium -pt appears dehydrated, cachectic -pt says yes and no but cannot provide a complete hx -pt appears dry, tenting skin -will repeat labs, give ivf hydration -will monitor and reassess 08/28/18 20:57 allen and elevated sodium on labs call placed to [facility] escobar for obs receiving ivf hdyraiton 08/28/18 21:[address] Enriquez who accepts pt under dr. escobar <Tiki Gloria - Last Filed: 08/28/18 21:25> *DC/Admit/Observation/Transfer - Discharge Dispostion Decision to Admit order: Yes <Tiki Gloria - Last Filed: 08/28/18 21:25> Diagnosis at time of Disposition: Hypernatremia, ALLEN (acute kidney injury) - Discharge Dispostion Condition at time of disposition: Fair - Referrals Referrals: Debra Escobar MD [Primary Care Provider] - - Patient Instructions - Post Discharge Activity
[2018-08-28 19:26] LABS: BASO % 0.2 % (0-2.0); EOS % 0.1 % (0-4.5); HEMATOCRIT 35.9 % (35.4-49); HEMOGLOBIN 12.3 GM/dL (11.7-16.9); LYMPH % 1.7 % (8-40); MCH 34.1 pg (25.7-33.7); MCHC 34.2 g/dl (32.0-35.9); MEAN CELL VOLUME 99.7 fl (80-96); MEAN PLT VOLUME 9.6 fl (7.5-11.1); MONO % 2.1 % (3.8-10.2); NEUT % 95.9 % (42.8-82.8); PLATELET COUNT 294 K/MM3 (134-434); RDW 15.6 % (11.9-15.9)
[2018-08-28] MEDS ORDERED: SODIUM CHLORIDE 1,000 ML IV SCH ×2 (19:45→22:00)
[2018-08-28 20:23] LABS: ALBUMIN 3.6 g/dl (3.4-5.0); ALK PHOS 111 U/L (45-117); ANION GAP 7 MMOL/L (8-16); BILIRUBIN,TOTAL 1.3 mg/dL (0.2-1); BLOOD UREA NITROGEN 77 mg/dL (7-18); CALCIUM 9.3 mg/dL (8.5-10.1); CHLORIDE 113 mmol/L (98-107); CO2 30 mmol/L (21-32); CREATININE 2.7 mg/dL (0.55-1.3); GLUCOSE,RANDOM 134 mg/dL (74-106); POTASSIUM 4.9 mmol/L (3.5-5.1); SGOT/AST 10 U/L (15-37); SGPT/ALT 16 U/L (13-61); SODIUM 150 mmol/L (136-145); TOT PROT 6.7 g/dl (6.4-8.2)
[2018-08-28 20:28] LABS: BASO % 0.3 % (0-2.0); HEMATOCRIT 37.8 % (35.4-49); HEMOGLOBIN 12.8 GM/dL (11.7-16.9); MCH 33.8 pg (25.7-33.7); MCHC 33.8 g/dl (32.0-35.9); MEAN CELL VOLUME 99.9 fl (80-96); MONO % 2.4 % (3.8-10.2); NEUT % 95.3 % (42.8-82.8); PLATELET COUNT 271 K/MM3 (134-434); RBC 3.78 M/mm3 (4.00-5.60); WHITE BLOOD COUNT 12.6 K/mm3 (4.0-10.0)
[2018-08-28 20:39] LABS: ALBUMIN 3.8 g/dl (3.4-5.0); ALK PHOS 113 U/L (45-117); ANION GAP 6 MMOL/L (8-16); BILIRUBIN,TOTAL 1.4 mg/dL (0.2-1); BLOOD UREA NITROGEN 76 mg/dL (7-18); CALCIUM 9.1 mg/dL (8.5-10.1); CHLORIDE 113 mmol/L (98-107); CO2 30 mmol/L (21-32); CREATININE 2.7 mg/dL (0.55-1.3); GLUCOSE,RANDOM 133 mg/dL (74-106); POTASSIUM 4.6 mmol/L (3.5-5.1); SGOT/AST 8 U/L (15-37); SGPT/ALT 18 U/L (13-61); SODIUM 150 mmol/L (136-145)
[2018-08-28 21:35] LABS: PLATELET ESTIMATE ADEQUATE
[2018-08-28 21:37] LABS: PLATELET ESTIMATE ADEQUATE
[2018-08-28 21:48] LABS: INR 1.02 (0.83-1.09)
[2018-08-28 21:51] LABS: ACTIVATED PTT 29.2 SECONDS (25.2-36.5)
--- NOTE | 2018-08-28 21:56 | HP ---
CHIEF COMPLAINT: weakness PCP: Salma HISTORY OF PRESENT ILLNESS: 77 year old man from [facility], resently discharged- admitted for chest tightness, presents with elevated BUN and Cr from baseline and with weakness for 1 day. He is found to have hypernatremia as well. Pt is minimally verbal and does not answer questions correctly when asked. ER course was notable for: (1) iv fluid hydration (2) (3) Recent Travel: no PAST MEDICAL HISTORY: dementia, HTN, HLD, CKD, COPD (2L NC at home) PAST SURGICAL HISTORY: Appendectomy, Stent (Possibly aortic, Social History: unknown Family History: Allergies iodine Allergy (Verified 08/14/18 18:12) PATIENT SATES "DR. SANDOVAL TOLD HIM NOT HAVE IODINE OR DYE PRODUCTS." HOME MEDICATIONS: Home Medications Medication Instructions Recorded Albuterol 0.083% Nebulizer Mami 1 amp NEB Q4H PRN #0 amp 04/28/16 [Ventolin 0.083% Nebulizer Soln -] Aspirin Coated [Ecotrin -] 81 mg PO DAILY tablet.ec 04/28/16 Budesonide/Formeterol Fumarate 2 puff IH BID inhaler 04/28/16 [SYMBICORT 80/4.5mcg -] Albuterol Sulfate [Proair Hfa] 8.5 gm IH TID 08/14/18 Donepezil HCl 5 mg PO HS 08/14/18 Isosorbide Mononitrate [Imdur -] 10 mg PO BID 08/14/18 Memantine HCl [Namenda -] 5 mg PO DAILY 08/14/18 Metoprolol Tartrate [Lopressor -] 25 mg PO DAILY 08/14/18 Isosorbide Mononitrate [Monoket -] 10 mg PO BID@0800,1500 tablet 08/21/18 predniSONE [Deltasone -] 20 mg PO DAILY tablet 08/21/18 REVIEW OF SYSTEMS unable to obtain as patient is nonverbal PHYSICAL EXAMINATION Vital Signs - 24 hr 08/28/18 17:25 Temperature 96.1 F L Pulse Rate 65 Respiratory 16 Rate Blood Pressure 117/62 O2 Sat by Pulse 93 L Oximetry (%) GENERAL: Awake, alert, wasted appearance HEAD: Normal with no signs of trauma. EYES: Pupils equal, round and reactive to light, extraocular movements intact, sclera anicteric, conjunctiva clear. No lid lag. EARS, NOSE, THROAT: dry mucous membranes NECK: Normal range of motion, supple without lymphadenopathy, JVD, or masses. LUNGS: Breath sounds equal, clear to auscultation bilaterally. No wheezes, and no crackles. No accessory muscle use. HEART: Regular rate and rhythm, normal S1 and S2 without murmur, rub or gallop. ABDOMEN: Soft, nontender, not distended, normoactive bowel sounds, no guarding, no rebound, no masses. No hepatomegaly or splenomegaly. MUSCULOSKELETAL: Normal range of motion at all joints. No bony deformities or tenderness. No CVA tenderness. UPPER EXTREMITIES: 2+ pulses, warm, well-perfused. No cyanosis. No clubbing. No peripheral edema. LOWER EXTREMITIES: 2+ pulses, warm, well-perfused. No calf tenderness. No peripheral edema. NEUROLOGICAL: follows some commands PSYCHIATRIC:nonverbal SKIN: dry skin, no rashes Laboratory Results - last 24 hr 08/28/18 08/28/18 08/28/18 19:16 19:16 19:16 WBC 14.0 H RBC 3.60 L Hgb 12.3 Hct 35.9 D MCV 99.7 H MCH 34.1 H MCHC 34.2 RDW 15.6 Plt Count 294 D MPV 9.6 D Absolute Neuts (auto) 13.4 H Neutrophils % 95.9 H D Neutrophils % (Manual) 94.0 H Band Neutrophils % 3.0 Lymphocytes % 1.7 L D Lymphocytes % (Manual) 3.0 L D Monocytes % 2.1 L Monocytes % (Manual) 0 L Eosinophils % 0.1 D Eosinophils % (Manual) 0.0 Basophils % 0.2 Basophils % (Manual) Nucleated RBC % 0 Platelet Estimate Adequate PT with INR Cancelled INR Cancelled PTT (Actin FS) Cancelled Sodium 150 H Potassium 4.9 Chloride 113 H Carbon Dioxide 30 Anion Gap 7 L BUN 77 H Creatinine 2.7 H Creat Clearance w eGFR 22.97 Random Glucose 134 H Calcium 9.3 Total Bilirubin 1.3 H AST 10 L ALT 16 Alkaline Phosphatase 111 Total Protein 6.7 Albumin 3.6 08/28/18 08/28/18 08/28/18 20:12 20:12 20:12 WBC 12.6 H RBC 3.78 L Hgb 12.8 Hct 37.8 MCV 99.9 H MCH 33.8 H MCHC 33.8 RDW 16.0 H Plt Count 271 MPV 9.0 Absolute Neuts (auto) 12.0 H Neutrophils % 95.3 H Neutrophils % (Manual) 93.0 H Band Neutrophils % 4.0 Lymphocytes % 2.0 L Lymphocytes % (Manual) 2.0 L D Monocytes % 2.4 L Monocytes % (Manual) 1 L D Eosinophils % 0.0 D Eosinophils % (Manual) 0.0 Basophils % 0.3 Basophils % (Manual) 0.0 Nucleated RBC % 0 Platelet Estimate Adequate PT with INR 12.00 INR 1.02 PTT (Actin FS) 29.2 Sodium 150 H Potassium 4.6 Chloride 113 H Carbon Dioxide 30 Anion Gap 6 L BUN 76 H Creatinine 2.7 H Creat Clearance w eGFR 22.97 Random Glucose 133 H Calcium 9.1 Total Bilirubin 1.4 H AST 8 L ALT 18 Alkaline Phosphatase 113 Total Protein 7.0 Albumin 3.8 imaging reviewed ASSESSMENT/PLAN: #Hypernatremia - likely from insatiable fluid losses -observation -gentle IV fluid hydration with NS -repeat bmp to monitor Na -check serum osm, urine osm, tsm #ALLEN on CKD -likely prerenal azotemia -avoid nephrotoxins -i/o -daily weights -renal u/s #dementia -fall precautions -c/w donepezil -c/w mematine #COPD -symbicort -albuterol prn -c/w supplemental oxygen -heparin sc for dvt ppx Visit type - Emergency Visit Emergency Visit: Yes Care time: The patient presented to the Emergency Department on the above date and was hospitalized for further evaluation of their emergent condition. - New Patient This patient is new to me today: Yes Date on this admission: 08/29/18 - Critical Care Critical Care patient: No
[2018-08-28] MEDS ORDERED: ALBUTEROL SO4 0.083% IH SOL 2.5 MG/3 ML VIAL.NEB. NEB PRN (22:01)
[2018-08-28] MEDS: HEPARIN NA (PORCINE) 5,000 UNITS/ML 1ML VIAL SQ SCH (22:33)
[2018-08-29 01:24] LABS: ANION GAP 7 MMOL/L (8-16); BLOOD UREA NITROGEN 72 mg/dL (7-18); CALCIUM 8.1 mg/dL (8.5-10.1); CHLORIDE 118 mmol/L (98-107); CO2 28 mmol/L (21-32); CREATININE 2.5 mg/dL (0.55-1.3); GLUCOSE,RANDOM 104 mg/dL (74-106); POTASSIUM 4.6 mmol/L (3.5-5.1); SODIUM 152 mmol/L (136-145)
[2018-08-29 07:19] LABS: HEMATOCRIT 32.7 % (35.4-49); HEMOGLOBIN 11.1 GM/dL (11.7-16.9); MCHC 33.8 g/dl (32.0-35.9); MEAN CELL VOLUME 100.6 fl (80-96); MEAN PLT VOLUME 8.7 fl (7.5-11.1); PLATELET COUNT 175 K/MM3 (134-434); RBC 3.25 M/mm3 (4.00-5.60); RDW 15.7 % (11.9-15.9); WHITE BLOOD COUNT 10.2 K/mm3 (4.0-10.0)
[2018-08-29] MEDS ORDERED: PT OWN MED DRAWER 7, Y5N ONE (09:18)
[2018-08-29] MEDS: HEPARIN NA (PORCINE) 5,000 UNITS/ML 1ML VIAL SQ SCH ×2 (09:51→22:46)
[2018-08-29] MEDS: METOPROLOL TARTRATE 25 MG TABLET (FP) PO SCH (09:51)
[2018-08-29] MEDS: ASPIRIN COATED 81 MG TABLET.EC PO SCH (09:51)
[2018-08-29] MEDS: MEMANTINE HCL 5 MG TABLET (UD) PO SCH (09:51)
[2018-08-29] MEDS: ISOSORBIDE MONONITRATE 10 MG TABLET PO SCH ×2 (09:52→15:41)
--- NOTE | 2018-08-29 11:39 | PN ---
Progress Note, Physician Chief Complaint: Weakness Elevated BUN/Cr Hypernatremia History of Present Illness: Previous notes and events reviewed patient is sleeping but verbally responsive NAD complain of feeling tired Na level 152 - Current Medication List Current Medications: Active Medications Albuterol Sulfate (Ventolin 0.083% Nebulizer Soln -) 1 amp NEB Q4H PRN PRN Reason: SHORT OF BREATH/WHEEZING Aspirin (Ecotrin -) 81 mg PO DAILY [facility] Last Admin: 08/29/18 09:51 Dose: 81 mg Budesonide/Formoterol Fumarate (Symbicort 80/4.5mcg -) 2 puff IH BID [facility] Donepezil HCl (Aricept -) 5 mg PO HS [facility] Heparin Sodium (Porcine) (Heparin -) 5,000 unit SQ BID [facility] Last Admin: 08/29/18 09:51 Dose: 5,000 unit Sodium Chloride (Normal Saline -) 1,000 mls @ 0 mls/hr IV ASDIR [facility] Last Admin: 08/28/18 20:11 Dose: 100 mls/hr Sodium Chloride (Normal Saline -) 1,000 mls @ 50 mls/hr IV ASDIR [facility] Stop: 08/29/18 22:00 Last Admin: 08/28/18 22:33 Dose: 50 mls/hr Isosorbide Mononitrate (Ismo -) 10 mg PO BID@0800,1500 [facility] Last Admin: 08/29/18 09:52 Dose: 10 mg Memantine (Namenda -) 5 mg PO DAILY [facility] Last Admin: 08/29/18 09:51 Dose: 5 mg Metoprolol Tartrate (Lopressor -) 25 mg PO DAILY [facility] Last Admin: 08/29/18 09:51 Dose: 25 mg - Objective Vital Signs: Vital Signs Temperature 97.7 F 08/29/18 09:00 Pulse Rate 86 08/29/18 09:00 Respiratory Rate 18 08/29/18 09:00 Blood Pressure 140/54 L 08/29/18 09:00 O2 Sat by Pulse Oximetry (%) 95 08/29/18 09:00 Constitutional: Yes: No Distress, Calm, Cachectic Eyes: Yes: Conjunctiva Clear Neck: Yes: Supple Cardiovascular: Yes: Regular Rate and Rhythm Respiratory: Yes: Diminished Gastrointestinal: Yes: Normal Bowel Sounds, Soft Genitourinary: Yes: Incontinence Musculoskeletal: Yes: Muscle Weakness Extremities: Yes: WNL Edema: No Neurological: Yes: Alert, Pre-Existing Deficit Psychiatric: Yes: Alert, Oriented Labs: CBC, BMP 08/29/18 07:00 INR, PTT INR 1.02 (0.83-1.09) 08/28/18 20:12 - ....Imaging Chest X-ray: Report Reviewed Ultrasound: Report Reviewed <Carolyn Merritt - Last Filed: 08/29/18 11:48> - Current Medication List Current Medications: Active Medications Albuterol Sulfate (Ventolin 0.083% Nebulizer Soln -) 1 amp NEB Q4H PRN PRN Reason: SHORT OF BREATH/WHEEZING Aspirin (Ecotrin -) 81 mg PO DAILY [facility] Last Admin: 08/29/18 09:51 Dose: 81 mg Budesonide/Formoterol Fumarate (Symbicort 80/4.5mcg -) 2 puff IH BID [facility] Last Admin: 08/30/18 00:20 Dose: 2 puff Donepezil HCl (Aricept -) 5 mg PO HS [facility] Last Admin: 08/29/18 23:02 Dose: 5 mg Heparin Sodium (Porcine) (Heparin -) 5,000 unit SQ BID [facility] Last Admin: 08/29/18 22:46 Dose: 5,000 unit Dextrose (D5w -) 1,000 mls @ 75 mls/hr IV ASDIR [facility] Last Admin: 08/30/18 06:13 Dose: 75 mls/hr Isosorbide Mononitrate (Ismo -) 10 mg PO BID@0800,1500 [facility] Last Admin: 08/29/18 15:41 Dose: 10 mg Memantine (Namenda -) 5 mg PO DAILY [facility] Last Admin: 08/29/18 09:51 Dose: 5 mg Metoprolol Tartrate (Lopressor -) 25 mg PO DAILY [facility] Last Admin: 08/29/18 09:51 Dose: 25 mg - Objective Vital Signs: Vital Signs Temperature 97.5 F L 08/30/18 06:55 Pulse Rate 51 L 08/30/18 06:55 Respiratory Rate 20 08/30/18 06:55 Blood Pressure 164/61 08/30/18 06:55 O2 Sat by Pulse Oximetry (%) 96 08/30/18 04:00 Labs: CBC, BMP 08/30/18 06:30 INR, PTT INR 1.02 (0.83-1.09) 08/28/18 20:12 <Glenny Marsh - Last Filed: 08/30/18 08:14> Problem List - Problems (1) Weakness Assessment/Plan: -PT eval Code(s): R53.1 - WEAKNESS (2) ALLEN (acute kidney injury) Assessment/Plan: -Nephrology consult placed -BUN/Cr 72/2.5 -will continue to monitor BUN/Cr -renal US reviewed: mild bilateral renal atrophy, mild right hydronephrosis, mild increase left renal cortical echogenicitysuggestive of medical renal disease Code(s): N17.9 - ACUTE KIDNEY FAILURE, UNSPECIFIED (3) Hypernatremia Assessment/Plan: -Na 152 -renal consult placed -will trend Na level -serum osmolality, urine osmolality pending Code(s): E87.0 - HYPEROSMOLALITY AND HYPERNATREMIA (4) Hypertension Assessment/Plan: -cont with metoprolol daily -low Na diet Code(s): I10 - ESSENTIAL (PRIMARY) HYPERTENSION Qualifiers: Hypertension type: essential hypertension Qualified Code(s): I10 - Essential (primary) hypertension (5) Chronic obstruct airways disease Assessment/Plan: -continue with Symbicort BID -albuterol neb tx PRN for SOB -O2 via NC PRN -keep SpO2 >90% -pulmonary consult Code(s): J44.9 - CHRONIC OBSTRUCTIVE PULMONARY DISEASE, UNSPECIFIED <Carolyn Merritt - Last Filed: 08/29/18 11:48> Assessment/Plan see problem list dvt ppx <Carolyn Merritt - Last Filed: 08/29/18 11:48> PATIENT SEEN AND EXAMINED I AGREE WITH THE ABOVE NOTE <Glenny Marsh - Last Filed: 08/30/18 08:14>
[2018-08-29 11:50] LABS: GLUCOSE,RANDOM 77 mg/dL (74-106)
[2018-08-29 11:51] LABS: ANION GAP 10 MMOL/L (8-16); BLOOD UREA NITROGEN 66 mg/dL (7-18); CALCIUM 8.4 mg/dL (8.5-10.1); CHLORIDE 121 mmol/L (98-107); CO2 23 mmol/L (21-32); CREATININE 2.2 mg/dL (0.55-1.3); POTASSIUM 4.8 mmol/L (3.5-5.1); SODIUM 154 mmol/L (136-145)
[2018-08-29] MEDS: BUDESONIDE/FORMETEROL FUMARATE 80/4.5 mcg INHALER IH SCH ×2 (15:46→23:03)
--- NOTE | 2018-08-29 16:12 | CONSULT ---
Consult Consult Specialty:: Nephrology Reason for Consultation:: CKD - History of Present Illness Chief Complaint: sent in for worsening renal failure History of Present Illness: Pt is a 77 year old make with pmhx of CKD, HTN, dementia, COPD on nc o2, and HLD who was sent in for worsening renal failure. He also had weakness and lethargy. He is awake but not fully cooperative with history. He denies dysuria. He does have chronic shortness of breath. He was recently discharged from the hospital. - History Source History Provided By: Patient, Medical Record - Past Medical History Cardio/Vascular: Yes: HTN, Hyperlipdemia Pulmonary: Yes: COPD, O2 Dependent Renal/: Yes: Renal Inusuff Additional Medical History: gu surgery as a child; cyst on back - Past Surgical History Past Surgical History: Yes: Appendectomy, Stent (Possibly aortic, patient is unsure) - Alcohol/Substance Use Hx Alcohol Use: No History of Substance Use: reports: None - Smoking History Smoking history: Never smoked Have you smoked in the past 12 months: No Aproximately how many cigarettes per day: 30 If you are a former smoker, when did you quit?: 2013 - Social History Usual Living Arrangement: Other (lives with and son in 2nd floor walk-up apartment with about 15 steps to enter) ADL: Family Assistance (ambulated with RW) 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 History of Recent Travel: No Home Medications - Allergies Allergies/Adverse Reactions: Allergies Allergy/AdvReac Type Severity Reaction Status Date / Time iodine Allergy Verified 08/14/18 18:12 - Home Medications Home Medications: Ambulatory Orders Albuterol 0.083% Nebulizer Mami [Ventolin 0.083% Nebulizer Soln -] 1 amp NEB Q4H PRN #0 amp 04/28/16 Aspirin Coated [Ecotrin -] 81 mg PO DAILY tablet.ec 04/28/16 Budesonide/Formeterol Fumarate [SYMBICORT 80/4.5mcg -] 2 puff IH BID inhaler Albuterol Sulfate [Proair Hfa] 8.5 gm IH TID 08/14/18 Donepezil HCl 5 mg PO HS 08/14/18 Isosorbide Mononitrate [Imdur -] 10 mg PO BID 08/14/18 Memantine HCl [Namenda -] 5 mg PO DAILY 08/14/18 Metoprolol Tartrate [Lopressor -] 25 mg PO DAILY 08/14/18 Isosorbide Mononitrate [Monoket -] 10 mg PO BID@0800,1500 tablet 08/21/18 predniSONE [Deltasone -] 20 mg PO DAILY tablet 08/21/18 Family Disease History - Family Disease History Family History: Denies Review of Systems - Review of Systems Constitutional: reports: Malaise. denies: Chills, Fever Eyes: reports: No Symptoms HENT: reports: No Symptoms Neck: reports: No Symptoms Respiratory: reports: SOB, SOB on Exertion Genitourinary: reports: No Symptoms Musculoskeletal: reports: No Symptoms Endocrine: reports: No Symptoms Physical Exam Vital Signs: Vital Signs Temperature 97.8 F 08/29/18 14:19 Pulse Rate 56 L 08/29/18 14:19 Respiratory Rate 18 08/29/18 14:19 Blood Pressure 117/50 L 08/29/18 14:19 O2 Sat by Pulse Oximetry (%) 95 08/29/18 09:00 Constitutional: Yes: Calm Eyes: Yes: Conjunctiva Clear HENT: Yes: Atraumatic Cardiovascular: Yes: S1, S2 Respiratory: Yes: On Nasal O2 Gastrointestinal: Yes: Soft Renal/: Yes: WNL Musculoskeletal: Yes: WNL Edema: No Neurological: Yes: Oriented Psychiatric: Yes: Oriented Labs: CBC, BMP 08/29/18 07:00 08/29/18 07:00 Laboratory Tests 08/16/18 08/28/18 08/29/18 06:25 20:12 00:04 Sodium Creatinine 2.7 H 2.5 H Urine Protein 2+ H Urine Blood 1+ H 08/29/18 07:00 Sodium 154 H Creatinine 2.2 H Urine Protein Urine Blood Imaging - Results Chest X-ray: Report Reviewed Problem List - Problems (1) ALLEN (acute kidney injury) Code(s): N17.9 - ACUTE KIDNEY FAILURE, UNSPECIFIED (2) Hypernatremia Code(s): E87.0 - HYPEROSMOLALITY AND HYPERNATREMIA Assessment/Plan Current Medications Generic Name Dose Route Start Last Admin Trade Name Freq PRN Reason Stop Dose Admin Albuterol Sulfate 1 amp 08/28/18 22:01 Ventolin 0.083% Nebulizer Soln - NEB Q4H PRN SHORT OF BREATH/WHEEZING Aspirin 81 mg 08/29/18 10:00 08/29/18 09:51 Ecotrin - PO 81 mg DAILY MIKY Administration Budesonide/Formoterol Fumarate 2 puff 08/29/18 10:00 08/29/18 15:46 Symbicort 80/4.5mcg - IH Not Given BID MIKY Donepezil HCl 5 mg 08/29/18 22:00 Aricept - PO HS MIKY Heparin Sodium (Porcine) 5,000 unit 08/28/18 22:00 08/29/18 09:51 Heparin - SQ 5,000 unit BID MIKY Administration Sodium Chloride 1,000 mls @ 0 mls/hr 08/28/18 19:45 08/28/18 20:11 Normal Saline - IV 100 mls/hr ASDIR MIKY Administration Wide Open Sodium Chloride 1,000 mls @ 50 mls/hr 08/28/18 22:00 08/28/18 22:33 Normal Saline - IV 08/29/18 22:00 50 mls/hr ASDIR MIKY Administration Isosorbide Mononitrate 10 mg 08/29/18 08:00 08/29/18 15:41 Ismo - PO 10 mg BID@0800,1500 MIKY Administration Memantine 5 mg 08/29/18 10:00 08/29/18 09:51 Namenda - PO 5 mg DAILY MIKY Administration Metoprolol Tartrate 25 mg 08/29/18 10:00 08/29/18 09:51 Lopressor - PO 25 mg DAILY MIKY Administration Impression 1. CKD 2. COPD 3. a-fib 4. HTN 5. hyperlipidemia 6. proteinuria 7. microscopic hematuria 8. hypernatremia 9. ALLEN Plan - pt has a 2.7 liter deficit based on a weight of 120 pounds - change fluids to d5w at 75 cc - urology eval for hydro - renal function is improving - monitor renal function and sodium - avoid nsaids
--- NOTE | 2018-08-29 16:44 | EKG ---
Test Reason : Blood Pressure : / mmHG Vent. Rate : 057 BPM Atrial Rate : 057 BPM P-R Int : 118 ms QRS Dur : 092 ms QT Int : 444 ms P-R-T Axes : 083 -32 056 degrees QTc Int : 432 ms SINUS BRADYCARDIA WITH PREMATURE ATRIAL COMPLEXES LEFT AXIS DEVIATION SEPTAL INFARCT (CITED ON OR BEFORE 14-AUG-2018) ABNORMAL ECG WHEN COMPARED WITH ECG OF 14-AUG-2018 19:00, PREMATURE ATRIAL COMPLEXES ARE NOW PRESENT NONSPECIFIC T WAVE ABNORMALITY NO LONGER EVIDENT IN INFERIOR LEADS QT HAS SHORTENED Confirmed by MARINA NGUYEN, MACIEL ([id number]) on 08/29/2018 4:43:37 PM Referred By: Confirmed By:MACIEL GRAY MD
[2018-08-29] MEDS: DEXTROSE 5%-WATER - 1,000 ML IV SCH (17:20)
[2018-08-29] MEDS ORDERED: DONEPEZIL HCL 5 MG TABLET (FP) PO SCH (22:00)
[2018-08-30] MEDS: BUDESONIDE/FORMETEROL FUMARATE 80/4.5 mcg INHALER IH SCH ×2 (00:20→10:03)
[2018-08-30] MEDS: DEXTROSE 5%-WATER - 1,000 ML IV SCH (06:13)
[2018-08-30 07:42] LABS: HEMOGLOBIN 10.6 GM/dL (11.7-16.9); MCH 33.9 pg (25.7-33.7); MCHC 34.2 g/dl (32.0-35.9); MEAN CELL VOLUME 98.9 fl (80-96); MEAN PLT VOLUME 8.8 fl (7.5-11.1); PLATELET COUNT 225 K/MM3 (134-434); RBC 3.14 M/mm3 (4.00-5.60); RDW 15.1 % (11.9-15.9); WHITE BLOOD COUNT 9.5 K/mm3 (4.0-10.0)
--- NOTE | 2018-08-30 08:13 | CON.GU ---
Consult Consult Specialty:: urology Referred by:: Salma Reason for Consultation:: right hydronephrosis - History of Present Illness Chief Complaint: acute renal insufficiency History of Present Illness: Patient with history of mild right hydro on renal sonogram. The patient denies right renal colic, nausea, vomiting, gross hematuria, or change in urinary symptoms. The patient is comfortable and denies difficulty voiding. - History Source History Provided By: Patient, Medical Record Limitations to Obtaining History: No Limitations - Past Medical History Cardio/Vascular: Yes: HTN, Hyperlipdemia Pulmonary: Yes: COPD, O2 Dependent Renal/: Yes: Renal Inusuff Additional Medical History: gu surgery as a child; cyst on back - Past Surgical History Past Surgical History: Yes: Appendectomy, Stent (Possibly aortic, patient is unsure) - Alcohol/Substance Use Hx Alcohol Use: No History of Substance Use: reports: None - Smoking History Smoking history: Never smoked Have you smoked in the past 12 months: No Aproximately how many cigarettes per day: 30 If you are a former smoker, when did you quit?: 2013 - Social History Usual Living Arrangement: Other (lives with and son in 2nd floor walk-up apartment with about 15 steps to enter) ADL: Family Assistance (ambulated with RW) 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 History of Recent Travel: No Home Medications - Allergies Allergies/Adverse Reactions: Allergies Allergy/AdvReac Type Severity Reaction Status Date / Time iodine Allergy Verified 08/14/18 18:12 - Home Medications Home Medications: Ambulatory Orders Albuterol 0.083% Nebulizer Mami [Ventolin 0.083% Nebulizer Soln -] 1 amp NEB Q4H PRN #0 amp 04/28/16 Aspirin Coated [Ecotrin -] 81 mg PO DAILY tablet.ec 04/28/16 Budesonide/Formeterol Fumarate [SYMBICORT 80/4.5mcg -] 2 puff IH BID inhaler Albuterol Sulfate [Proair Hfa] 8.5 gm IH TID 08/14/18 Donepezil HCl 5 mg PO HS 08/14/18 Isosorbide Mononitrate [Imdur -] 10 mg PO BID 08/14/18 Memantine HCl [Namenda -] 5 mg PO DAILY 08/14/18 Metoprolol Tartrate [Lopressor -] 25 mg PO DAILY 08/14/18 Isosorbide Mononitrate [Monoket -] 10 mg PO BID@0800,1500 tablet 08/21/18 predniSONE [Deltasone -] 20 mg PO DAILY tablet 08/21/18 Physical Exam- Vital Signs: Vital Signs Temperature 97.5 F L 08/30/18 06:55 Pulse Rate 51 L 08/30/18 06:55 Respiratory Rate 20 08/30/18 06:55 Blood Pressure 164/61 08/30/18 06:55 O2 Sat by Pulse Oximetry (%) 96 08/30/18 04:00 Constitutional: Yes: Calm, Cachectic Eyes: Yes: WNL, Conjunctiva Clear, EOM Intact HENT: Yes: WNL, Atraumatic, Normocephalic Neck: Yes: WNL, Supple, Trachea Midline Cardiovascular: Yes: WNL, Regular Rate and Rhythm Respiratory: Yes: Regular Gastrointestinal: Yes: Soft Renal/: Yes: WNL Kidneys: Yes: WNL Pelvis: Yes: WNL, Bladder Non Palpable Testicles: Yes: WNL Scrotum: Yes: WNL Penis: Yes: WNL Prostate Exam: Yes: Swollen Labs: CBC, BMP 08/30/18 06:30 Imaging - Results Cat Scan: Report Reviewed Ultrasound: Report Reviewed Assessment/Plan impression acute renal insufficiency right hydronephrosis plan the hydronephrosis is not cliically significant and the creatinine is normalizing to his baseline would follow creatinine and urge hydration
[2018-08-30 08:14] LABS: ALBUMIN 3.1 g/dl (3.4-5.0); ALK PHOS 95 U/L (45-117); ANION GAP 4 MMOL/L (8-16); BILIRUBIN,TOTAL 1.3 mg/dL (0.2-1); BLOOD UREA NITROGEN 51 mg/dL (7-18); CALCIUM 8.2 mg/dL (8.5-10.1); CHLORIDE 111 mmol/L (98-107); CO2 30 mmol/L (21-32); CREATININE 1.9 mg/dL (0.55-1.3); GLUCOSE,RANDOM 81 mg/dL (74-106); SGOT/AST 11 U/L (15-37); SGPT/ALT 14 U/L (13-61); SODIUM 146 mmol/L (136-145)
[2018-08-30] MEDS ORDERED: DEXTROSE 5%-WATER - 1,000 ML IV SCH (08:17)
--- NOTE | 2018-08-30 08:19 | DS ---
Physical Examination Vital Signs: Vital Signs Temperature 97.5 F L 08/30/18 06:55 Pulse Rate 51 L 08/30/18 06:55 Respiratory Rate 20 08/30/18 06:55 Blood Pressure 164/61 08/30/18 06:55 O2 Sat by Pulse Oximetry (%) 96 08/30/18 04:00 Findings/Remarks: SEEN BEDSIDE WITH UROLOGY, NO PROCEDURES NEEDED AND THIS TIME Constitutional: Yes: Mild Distress Eyes: Yes: WNL HENT: Yes: WNL Neck: Yes: WNL Cardiovascular: Yes: Regular Rate and Rhythm Respiratory: Yes: Diminished, On Nasal O2 Gastrointestinal: Yes: Soft Renal/: Yes: Incontinence Musculoskeletal: Yes: Muscle Weakness Extremities: Yes: Other Edema: No Integumentary: Yes: WNL Wound/Incision: Yes: Clean/Dry Neurological: Yes: Pre-Existing Deficit ...Motor Strength: LLE, RLE Psychiatric: Yes: WNL Labs: CBC, BMP 08/30/18 06:30 Discharge Summary Reason For Visit: HYPERNATREMIA,ACUTE KIDNEY INJURTY Current Active Problems ALLEN (acute kidney injury) (Acute) Hypernatremia (Acute) Weakness (Acute) COPD HYDRONEPHROSIS CRI Procedures: Principal: CXR/LABS Hospital Course: ADMITTED WEAKNESS/COPD ACUTE ON CHRONIC WITH HYDRONEPHROSIS CRI, NO PROCEDURE AT THIS TIME Condition: Fair - Instructions Diet, Activity, Other Instructions: HYDRONEPHROSIS IS CHRONIC AND EVALUATION COMPLETE NO PROCEDURE NEEDED SNF Referrals: Debra Waters MD [Primary Care Provider] - Disposition: [facility] - Home Medications Comprehensive Discharge Medication List: Ambulatory Orders Albuterol 0.083% Nebulizer Mami [Ventolin 0.083% Nebulizer Soln -] 1 amp NEB Q4H PRN #0 amp 04/28/16 Aspirin Coated [Ecotrin -] 81 mg PO DAILY tablet.ec 04/28/16 Budesonide/Formeterol Fumarate [SYMBICORT 80/4.5mcg -] 2 puff IH BID inhaler Albuterol Sulfate [Proair Hfa] 8.5 gm IH TID 08/14/18 Donepezil HCl 5 mg PO HS 08/14/18 Isosorbide Mononitrate [Imdur -] 10 mg PO BID 08/14/18 Memantine HCl [Namenda -] 5 mg PO DAILY 08/14/18 Metoprolol Tartrate [Lopressor -] 25 mg PO DAILY 08/14/18 Isosorbide Mononitrate [Monoket -] 10 mg PO BID@0800,1500 tablet 08/21/18 predniSONE [Deltasone -] 20 mg PO DAILY tablet 08/21/18 Heparin - 5,000 unit SQ BID vial 08/30/18
[2018-08-30] MEDS ORDERED: PT OWN MED DRAWER 7, Y5N ONE (09:10)
[2018-08-30] MEDS: ASPIRIN COATED 81 MG TABLET.EC PO SCH (10:00)
[2018-08-30] MEDS: MEMANTINE HCL 5 MG TABLET (UD) PO SCH (10:00)
[2018-08-30] MEDS: HEPARIN NA (PORCINE) 5,000 UNITS/ML 1ML VIAL SQ SCH (10:00)
[2018-08-30] MEDS: METOPROLOL TARTRATE 25 MG TABLET (FP) PO SCH (10:00)
[2018-08-30] MEDS: ISOSORBIDE MONONITRATE 10 MG TABLET PO SCH ×2 (10:01→16:00)
[2018-08-30 10:13] VITALS: BMI 17.3
--- NOTE | 2018-08-30 16:54 | PN ---
Progress Note, Physician History of Present Illness: Pt seen and examined at bedside. He is awake but appears weak. - Current Medication List Current Medications: Active Medications Albuterol Sulfate (Ventolin 0.083% Nebulizer Soln -) 1 amp NEB Q4H PRN PRN Reason: SHORT OF BREATH/WHEEZING Aspirin (Ecotrin -) 81 mg PO DAILY [facility] Last Admin: 08/30/18 10:00 Dose: 81 mg Budesonide/Formoterol Fumarate (Symbicort 80/4.5mcg -) 2 puff IH BID [facility] Last Admin: 08/30/18 10:03 Dose: 2 puff Donepezil HCl (Aricept -) 5 mg PO HS [facility] Last Admin: 08/29/18 23:02 Dose: 5 mg Heparin Sodium (Porcine) (Heparin -) 5,000 unit SQ BID [facility] Last Admin: 08/30/18 10:00 Dose: 5,000 unit Dextrose (D5w -) 1,000 mls @ 55 mls/hr IV ASDIR [facility] Isosorbide Mononitrate (Ismo -) 10 mg PO BID@0800,1500 [facility] Last Admin: 08/30/18 16:00 Dose: 10 mg Memantine (Namenda -) 5 mg PO DAILY [facility] Last Admin: 08/30/18 10:00 Dose: 5 mg Metoprolol Tartrate (Lopressor -) 25 mg PO DAILY [facility] Last Admin: 08/30/18 10:00 Dose: 25 mg - Objective Vital Signs: Vital Signs Temperature 97.9 F 08/30/18 09:50 Pulse Rate 54 L 08/30/18 09:50 Respiratory Rate 18 08/30/18 09:50 Blood Pressure 139/55 L 08/30/18 09:50 O2 Sat by Pulse Oximetry (%) 99 08/30/18 12:00 Constitutional: Yes: Calm Eyes: Yes: Conjunctiva Clear HENT: Yes: Atraumatic Cardiovascular: Yes: S1, S2 Respiratory: Yes: On Nasal O2 Gastrointestinal: Yes: Soft Genitourinary: Yes: Incontinence Extremities: Yes: WNL Edema: No Neurological: Yes: Oriented Labs: CBC, BMP 08/30/18 06:30 08/30/18 06:30 INR, PTT INR 1.02 (0.83-1.09) 08/28/18 20:12 Problem List - Problems (1) ALLEN (acute kidney injury) Code(s): N17.9 - ACUTE KIDNEY FAILURE, UNSPECIFIED (2) Hypernatremia Code(s): E87.0 - HYPEROSMOLALITY AND HYPERNATREMIA Assessment/Plan Current Medications Generic Name Dose Route Start Last Admin Trade Name Freq PRN Reason Stop Dose Admin Albuterol Sulfate 1 amp 08/28/18 22:01 Ventolin 0.083% Nebulizer Soln - NEB Q4H PRN SHORT OF BREATH/WHEEZING Aspirin 81 mg 08/29/18 10:00 08/30/18 10:00 Ecotrin - PO 81 mg DAILY MIKY Administration Budesonide/Formoterol Fumarate 2 puff 08/29/18 10:00 08/30/18 10:03 Symbicort 80/4.5mcg - IH 2 puff BID MIKY Administration Donepezil HCl 5 mg 08/29/18 22:00 08/29/18 23:02 Aricept - PO 5 mg HS MIKY Administration Heparin Sodium (Porcine) 5,000 unit 08/28/18 22:00 08/30/18 10:00 Heparin - SQ 5,000 unit BID MIKY Administration Dextrose 1,000 mls @ 55 mls/hr 08/30/18 08:17 D5w - IV ASDIR MIKY Isosorbide Mononitrate 10 mg 08/29/18 08:00 08/30/18 16:00 Ismo - PO 10 mg BID@0800,1500 MIKY Administration Memantine 5 mg 08/29/18 10:00 08/30/18 10:00 Namenda - PO 5 mg DAILY MIKY Administration Metoprolol Tartrate 25 mg 08/29/18 10:00 08/30/18 10:00 Lopressor - PO 25 mg DAILY MIKY Administration Impression 1. CKD 2. COPD 3. a-fib 4. HTN 5. hyperlipidemia 6. proteinuria 7. microscopic hematuria 8. hypernatremia 9. ALLEN Plan - sodium is improving - cont d5w for now - repeat labs in am - urology eval for hydro - renal function is improving - monitor renal function and sodium - avoid nsaids
[2018-08-30 19:12] VITALS: BP 134/57; PULSE 58; TEMP 97.1
== END 2018-08-30 19:36 ==
LOC: JER 17:24 → J7W 21:25
PROVIDERS: ADMIT Family Medicine; ATTEND Family Medicine
PROC: 3E0337Z Introduction of Electrolytic and Water Balance Substance into Peripheral Vein, Percutaneous Approach (ICD-10-PCS; principal; 2018-08-28)
PROC: 3E013GC Introduction of Other Therapeutic Substance into Subcutaneous Tissue, Percutaneous Approach (ICD-10-PCS; 2018-08-28)
PROC: 3E0F7GC Introduction of Other Therapeutic Substance into Respiratory Tract, Via Natural or Artificial Opening (ICD-10-PCS; 2018-08-28)
DX: E87.0 Hyperosmolality and hypernatremia (principal); I12.9 Hypertensive chronic kidney disease with stage 1 through stage 4 chronic kidney disease, or unspecified chronic kidney disease; N18.9 Chronic kidney disease, unspecified; N17.9 Acute kidney failure, unspecified; Z87.891 Personal history of nicotine dependence; N13.30 Unspecified hydronephrosis; E78.5 Hyperlipidemia, unspecified; J44.9 Chronic obstructive pulmonary disease, unspecified; F03.90 Unspecified dementia, unspecified severity, without behavioral disturbance, psychotic disturbance, mood disturbance, and anxiety; R53.1 Weakness; Z79.82 Long term (current) use of aspirin; Z95.5 Presence of coronary angioplasty implant and graft; Z99.81 Dependence on supplemental oxygen
CPT/HCPCS: 36415; 71045-TC-FY; 76775-TC; 80048; 80053; 82962; 83930; 84443; 85025; 85027; 85610; 85730; 93005; 93010; 94640; 96372; 97116-GP; 97161-GP; 99283-25; G0378; J1644; J7030

== ENCOUNTER 2018-10-31 10:23 | Emergency (ER) | payer OTHER ==
[2018-10-31 10:37] VITALS: BP 172/75; PULSE 70; TEMP 97.9; BMI 28.3
--- NOTE | 2018-10-31 10:43 | PDOC ---
History of Present Illness - General History Source: Family, [facility] Records Exam Limitations: Dementia - History of Present Illness Initial Comments: 10/31/18 11:38 The patient is a 78-year-old man from [facility], with a history of dementia, HTN , HLD, CKD, COPD (2L NC at [place]), who presents to the ED with RT-sided facial droop today and RT eye redness/drooping that began 4 days ago. Family is at bedside providing history. They report that they went to visit the patient at the [place] on Sunday and noted that he was more sleepy than usual and was more difficult to arouse. They report that he has been in bed from Sunday up until yesterday. Family thinks that his speech sounds slurred and the patient notes that he is having difficulty with word finding. He denies any history of stroke , TIAs, or seizures in the past. The patient reports having difficulty seeing out of LT eye, but family states that the patient has has a history of cataracts. He denies any difficulty seeing out of the RT eye, but he is experiencing some discomfort because he is unable to close it. Upon examination , the family states that the patient is now at his baseline. HPI is limited due to patient's dementia. Allergies: Iodine Social History: None reported. Surgical History: Appendectomy, ureter tube, cyst removal from spine. <Ayla Zepeda - Last Filed: 10/31/18 11:41> <Sneha Greer - Last Filed: 10/31/18 16:27> - General Chief Complaint: Facial Droop Stated Complaint: R/O STROKE Time Seen by Provider: 10/31/18 10:42 Past History <Ayla Zepeda - Last Filed: 10/31/18 11:41> - Past Medical History Anemia: No Asthma: Yes Cancer: No Cardiac Disorders: Yes CVA: No COPD: Yes CHF: No Dementia: Yes Diabetes: No GI Disorders: No Disorders: Yes (ckd) HTN: Yes Hypercholesterolemia: Yes Liver Disease: No Seizures: No Thyroid Disease: Yes Other medical history: DNR/DNI - Surgical History Abdominal Surgery: Yes (URETER TUBE CHILD) Appendectomy: Yes Cardiac Surgery: No Cholecystectomy: No Lung Surgery: No Neurologic Surgery: Yes (cyst removed from spine) Orthopedic Surgery: No - Immunization History Td Vaccination: No TDAP Vaccination: No Immunization Up to Date: No - Suicide/Smoking/Psychosocial Hx Smoking Status: Yes Smoking History: Unknown if ever smoked Have you smoked in the past 12 months: No Number of Cigarettes Smoked Daily: 30 If you are a former smoker, when did you quit?: 2013 Information on smoking cessation initiated: No 'Breaking Loose' booklet given: 08/15/18 Hx Alcohol Use: No Drug/Substance Use Hx: No Substance Use Type: None Hx Substance Use Treatment: No <Sneha Greer - Last Filed: 10/31/18 16:27> - Past Medical History Allergies/Adverse Reactions: Allergies Allergy/AdvReac Type Severity Reaction Status Date / Time iodine Allergy Verified 10/31/18 10:29 Home Medications: Ambulatory Orders Albuterol 0.083% Nebulizer Mami [Ventolin 0.083% Nebulizer Soln -] 1 amp NEB Q4H PRN #0 amp 04/28/16 Aspirin Coated [Ecotrin -] 81 mg PO DAILY tablet.ec 04/28/16 Budesonide/Formeterol Fumarate [SYMBICORT 80/4.5mcg -] 2 puff IH BID inhaler Albuterol Sulfate [Proair Hfa] 8.5 gm IH TID 08/14/18 Donepezil HCl 5 mg PO HS 08/14/18 Isosorbide Mononitrate [Imdur -] 10 mg PO BID 08/14/18 Memantine HCl [Namenda -] 5 mg PO DAILY 08/14/18 Metoprolol Tartrate [Lopressor -] 25 mg PO DAILY 08/14/18 Isosorbide Mononitrate [Monoket -] 10 mg PO BID@0800,1500 tablet 08/21/18 predniSONE [Deltasone -] 20 mg PO DAILY tablet 08/21/18 Heparin - 5,000 unit SQ BID vial 08/30/18 Review of Systems - Review of Systems Able to Perform ROS?: No Comments:: 10/31/18 11:43 ROS unable to obtain due to patient's dementia. <Ayla Zepeda - Last Filed: 10/31/18 11:41> *Physical Exam - Vital Signs Last Vital Signs Temp Pulse Resp BP Pulse Ox 97.9 F 70 16 172/75 H 100 10/31/18 10:25 10/31/18 10:25 10/31/18 10:25 10/31/18 10:25 10/31/18 10:25 - Physical Exam Comments: 10/31/18 11:43 GENERAL: (+)Awake, alert, and oriented x1. In no acute distress HEAD: No signs of trauma EYES: (+)RT eye is red, tearing. No purulent discharge noted from RT eye. PERRLA , EOMI, sclera anicteric, conjunctiva clear ENT: Auricles normal inspection, hearing grossly normal, nares patent, oropharynx clear without exudates. Moist mucosa NECK: Normal ROM, supple, no lymphadenopathy, JVD, or masses LUNGS: Breath sounds equal, clear to auscultation bilaterally. No wheezes, and no crackles HEART: Regular rate and rhythm, normal S1 and S2, no murmurs, rubs or gallops ABDOMEN: Soft, nontender, normoactive bowel sounds. No guarding, no rebound. No masses EXTREMITIES: Normal range of motion, no edema. No clubbing or cyanosis. No cords, erythema, or tenderness NEUROLOGICAL: (+)Pronounced RT-sided facial droop involving the RT eye, incomplete closing of the RT eye. 5/5 muscle strength in B/L upper and lower extremities. SKIN: Warm, Dry, normal turgor, no rashes or lesions noted <Ayla Zepeda - Last Filed: 10/31/18 11:41> - Vital Signs Last Vital Signs Temp Pulse Resp BP Pulse Ox 97.9 F 70 16 172/75 H 100 10/31/18 10:25 10/31/18 10:25 10/31/18 10:25 10/31/18 10:25 10/31/18 10:25 <Sneha Greer - Last Filed: 10/31/18 16:27> ED Treatment Course - LABORATORY CBC & Chemistry Diagram: 10/31/18 11:21 10/31/18 11:29 <Sneha Greer - Last Filed: 10/31/18 16:27> Medical Decision Making - Medical Decision Making 10/31/18 12:59 Pt presents to the ED complaining of 4 days of R sided facial droop and 3 days of eye redness and pain. Symptoms are consistent with corneal abrasion. Will check fluorescin exam. Family also reports several days of excessive sleepiness , although patient is at his baseline now. Will check labs and ct head to evaluate for intracranial mass or bleed and will check labs to evaluate for electrolyte disturbance. 10/31/18 16:[address] head are negative. Fluorescin exam negative for corneal abrasion. Ua negative. 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 Will discharge to [place]. <Sneha Greer - Last Filed: 10/31/18 16:27> *DC/Admit/Observation/Transfer - Attestations Scribe Attestion: 10/31/18 11:47 Documentation prepared by Ayla Zepeda, acting as biomedical engineering professor for Sneha Greer MD. <Ayla Zepeda - Last Filed: 10/31/18 11:41> - Discharge Dispostion Decision to Admit order: No <Sneha Gerer - Last Filed: 10/31/18 16:27> Diagnosis at time of Disposition: Alston's palsy - Discharge Dispostion [facility]position[facility] Condition at time of disposition: Good - Patient Instructions Printed Discharge Instructions: DI for Alston's Palsy Additional Instructions: Pt has bells palsy which is causing the facial droop. Cat scan and labs are negative. No corneal abrasion. use occular lubricant to prevent dryness and consider patching for sleep. Return to the ED for worsening confusion, lethargy , fever, nausea and vomiting, changes in speech, new facial or body weakness. Also return for changes in vision or red, swollen, painful eye.
[2018-10-31] MEDS ORDERED: FLUORESCEIN NA 1 EA STRIP OS ONE (11:30)
[2018-10-31] MEDS ORDERED: TETRACAINE 0.5% HCL 0.6ML DROPPER.BOTTLE OS ONE (11:30)
[2018-10-31 11:53] LABS: BASO % 3.5 % (0-2.0); EOS % 4.8 % (0-4.5); HEMATOCRIT 31.4 % (35.4-49); HEMOGLOBIN 10.6 GM/dL (11.7-16.9); LYMPH % 15.2 % (8-40); MCH 33.1 pg (25.7-33.7); MCHC 33.9 g/dl (32.0-35.9); MEAN CELL VOLUME 97.6 fl (80-96); MEAN PLT VOLUME 7.6 fl (7.5-11.1); MONO % 5.2 % (3.8-10.2); NEUT % 71.3 % (42.8-82.8); PLATELET COUNT 237 K/MM3 (134-434); RBC 3.22 M/mm3 (4.00-5.60); RDW 14.7 % (11.9-15.9); WHITE BLOOD COUNT 5.7 K/mm3 (4.0-10.0)
[2018-10-31] MEDS ORDERED: TETRACAINE 0.5% OPHTH SOLN 2 ML BOTTLE ONE (12:06)
[2018-10-31] MEDS ORDERED: FLUORESCEIN NA 1 EA STRIP ONE (12:06)
[2018-10-31 12:33] LABS: ALK PHOS 102 U/L (45-117); ANION GAP 4 MMOL/L (8-16); BILIRUBIN,TOTAL 0.7 mg/dL (0.2-1); BLOOD UREA NITROGEN 20 mg/dL (7-18); CALCIUM 8.4 mg/dL (8.5-10.1); CHLORIDE 109 mmol/L (98-107); CO2 28 mmol/L (21-32); CREATININE 1.4 mg/dL (0.55-1.3); GLUCOSE,RANDOM 88 mg/dL (74-106); POTASSIUM 4.1 mmol/L (3.5-5.1); SGOT/AST 16 U/L (15-37); SGPT/ALT 17 U/L (13-61); SODIUM 141 mmol/L (136-145); TOT PROT 5.8 g/dl (6.4-8.2)
[2018-10-31 15:34] LABS: URINE APPEARANCE CLEAR; URINE BILIRUBIN NEGATIVE (NEGATIVE); URINE COLOR YELLOW; URINE GLUCOSE (UA) NEGATIVE (NEGATIVE); URINE KETONE TRACE (NEGATIVE); URINE LEUK ESTERASE NEGATIVE (NEGATIVE); URINE NITRITE NEGATIVE (NEGATIVE); URINE PROTEIN TRACE (NEGATIVE); URINE UROBILINOGEN 0.2 mg/dL (0.2-1.0)
== END 2018-10-31 19:11 ==
LOC: JER 10:23
DX: G51.0 Bell's palsy (principal)
CPT/HCPCS: 36415; 70450-TC; 80053; 81003; 84443; 85025; 99282-25

== ENCOUNTER 2018-11-06 11:43 | Inpatient (IN) | payer OTHER ==
[2018-11-06 13:13] LABS: BASO % 1.1 % (0-2.0); EOS % 6.3 % (0-4.5); HEMATOCRIT 35.9 % (35.4-49); HEMOGLOBIN 12.3 GM/dL (11.7-16.9); LYMPH % 16.9 % (8-40); MCH 33.6 pg (25.7-33.7); MCHC 34.4 g/dl (32.0-35.9); MEAN CELL VOLUME 97.6 fl (80-96); MEAN PLT VOLUME 8.1 fl (7.5-11.1); NEUT % 68.7 % (42.8-82.8); PLATELET COUNT 220 K/MM3 (134-434); RBC 3.68 M/mm3 (4.00-5.60); RDW 14.8 % (11.9-15.9); WHITE BLOOD COUNT 6.1 K/mm3 (4.0-10.0)
[2018-11-06 13:30] LABS: ALBUMIN 3.2 g/dl (3.4-5.0); ALK PHOS 108 U/L (45-117); ANION GAP 2 MMOL/L (8-16); BILIRUBIN,TOTAL 0.7 mg/dL (0.2-1); BLOOD UREA NITROGEN 17 mg/dL (7-18); CALCIUM 9.4 mg/dL (8.5-10.1); CHLORIDE 108 mmol/L (98-107); CO2 34 mmol/L (21-32); CREATININE 1.5 mg/dL (0.55-1.3); GLUCOSE,RANDOM 96 mg/dL (74-106); MAGNESIUM 1.9 mg/dL (1.8-2.4); POTASSIUM 4.7 mmol/L (3.5-5.1); SGOT/AST 12 U/L (15-37); SGPT/ALT 13 U/L (13-61); SODIUM 145 mmol/L (136-145); TOT PROT 6.3 g/dl (6.4-8.2)
[2018-11-06 13:33] LABS: EPI CELLS 1.2 /HPF (0-5/HPF); URINE APPEARANCE CLEAR; URINE BACTERIA 2.4 /hpf (NEGATIVE); URINE BILIRUBIN NEGATIVE (NEGATIVE); URINE CASTS 1 /lpf (0-8); URINE COLOR YELLOW; URINE GLUCOSE (UA) NEGATIVE (NEGATIVE); URINE KETONE NEGATIVE (NEGATIVE); URINE LEUK ESTERASE NEGATIVE (NEGATIVE); URINE NITRITE NEGATIVE (NEGATIVE); URINE PROTEIN 1+ (NEGATIVE); URINE RBC 1 /hpf (0-4); URINE WBC 1 /hpf (0-5)
[2018-11-06] MEDS: DEXTROSE 5%-0.45% SALINE 1,000 ML IV SCH (15:42)
--- NOTE | 2018-11-06 16:17 | PDOC ---
Documentation entered by Akua Crabtree SCRIBE, acting as scribe for Washington Loredo MD. Washington Loredo MD: This documentation has been prepared by the Bro casas Sammi, SCRIBE, under my direction and personally reviewed by me in its entirety. I confirm that the documentation accurately reflects all work, treatment, procedures, and medical decision making performed by me. History of Present Illness - General Chief Complaint: Loss of Appetite Stated Complaint: FAILURE TO THRIVE Time Seen by Provider: 11/06/18 12:00 - History of Present Illness Initial Comments: 11/06/18 12:39 Patient is a 78 year old male, sent from [facility] for evaluation of elevated BP, decreased PO and refusing to take medications. Patient complaining of not wanting to eat and dysphagia. pt denies cp/n/v/d/melena/brbpr. no hx/o fever/ chills reported. Pt has history of alston's palsy. Past History - Past Medical History Allergies/Adverse Reactions: Allergies Allergy/AdvReac Type Severity Reaction Status Date / Time iodine Allergy Verified 11/06/18 11:53 Home Medications: Ambulatory Orders Albuterol 0.083% Nebulizer Mami [Ventolin 0.083% Nebulizer Soln -] 1 amp NEB Q4H PRN #0 amp 04/28/16 Aspirin Coated [Ecotrin -] 81 mg PO DAILY tablet.ec 04/28/16 Budesonide/Formeterol Fumarate [SYMBICORT 80/4.5mcg -] 2 puff IH BID inhaler Albuterol Sulfate [Proair Hfa] 8.5 gm IH TID 08/14/18 Donepezil HCl 5 mg PO HS 08/14/18 Isosorbide Mononitrate [Imdur -] 10 mg PO BID 08/14/18 Memantine HCl [Namenda -] 5 mg PO DAILY 08/14/18 Metoprolol Tartrate [Lopressor -] 25 mg PO DAILY 08/14/18 Isosorbide Mononitrate [Monoket -] 10 mg PO BID@0800,1500 tablet 08/21/18 predniSONE [Deltasone -] 20 mg PO DAILY tablet 08/21/18 Heparin - 5,000 unit SQ BID vial 08/30/18 Anemia: No Asthma: Yes Cancer: No Cardiac Disorders: Yes CVA: No COPD: Yes CHF: No Dementia: Yes Diabetes: No GI Disorders: No Disorders: Yes (ckd) HTN: Yes Hypercholesterolemia: Yes Liver Disease: No Seizures: No Thyroid Disease: Yes - Surgical History Abdominal Surgery: Yes (URETER TUBE CHILD) Appendectomy: Yes Cardiac Surgery: No Cholecystectomy: No Lung Surgery: No Neurologic Surgery: Yes (cyst removed from spine) Orthopedic Surgery: No - Immunization History Td Vaccination: No TDAP Vaccination: No Immunization Up to Date: No - Suicide/Smoking/Psychosocial Hx Smoking Status: Yes Smoking History: Unknown if ever smoked Have you smoked in the past 12 months: No Number of Cigarettes Smoked Daily: 30 If you are a former smoker, when did you quit?: 2013 'Breaking Loose' booklet given: 08/15/18 Hx Alcohol Use: No Drug/Substance Use Hx: No Substance Use Type: None Hx Substance Use Treatment: No Review of Systems - Review of Systems Comments:: 11/06/18 12:39 CONSTITUTIONAL: No fever, no chills, no fatigue EYES: No visual changes ENT: (+)dysphagia. No ear pain, no sore throat CARDIOVASCULAR: No chest pain, no palpitations RESPIRATORY: No cough, no SOB GI: No abdominal pain, no nausea, no vomiting, no constipation, no diarrhea GENITOURINARY: No dysuria, no frequency, no hematuria MUSKULOSKELETAL: No backpain, no joint pain, no myalgias SKIN: No rash NEURO: No headache *Physical Exam - Vital Signs Last Vital Signs Temp Pulse Resp BP Pulse Ox 97.2 F L 82 18 180/76 H 96 11/06/18 11:53 11/06/18 11:53 11/06/18 11:53 11/06/18 11:53 11/06/18 11:53 - Physical Exam Comments: 11/06/18 16:12 EXAMINATION CONSTITUTIONAL: Patient is awake and alert, frail-appearing, in no distress HEAD: Normocephalic; atraumatic EYES: PERRL; + right cornea is cloudy; I'm unable to test extraocular movements ENMT: + Flattening of the right nasolabial fold with weakness of the orbicularis oculi muscle and muscles of the forehead on the right consistent with long-standing Alston's palsy NECK: Supple; non-tender; no jvd CARD: Normal S1, S2; 2/6 semurmurs, no rubs, or gallops RESP: Normal chest excursion with respiration; breath sounds clear and equal bilaterally; no wheezes, rhonchi, or rales ABD: Soft, non-distended; non-tender; no palpable organomegaly, no palpable hernias EXT: Extensive muscle wasting bilaterally; non-tender to palpation; distal pulses intact SKIN: Warm, dry, + multiple excoriated lesions as well as subcutaneous hematomas various sizes and age to upper and lower extremities NEURO: Patient is alert, oriented to self and place only, follows commands, Heart Score/ECG Review - ECG Intrepretation Comment:: 11/06/18 16:26 Sinus rhythm with premature atrial complexes Left axis deviation Septal infarct, age undetermined Abnormal ECG ED Treatment Course - LABORATORY CBC & Chemistry Diagram: 11/06/18 12:53 11/06/18 12:53 - ADDITIONAL ORDERS Additional order review: Laboratory Results 11/06/18 11/06/18 13:01 12:53 Sodium 145 Potassium 4.7 Chloride 108 H Carbon Dioxide 34 H Anion Gap 2 L BUN 17 Creatinine 1.5 H Creat Clearance w eGFR 45.14 Random Glucose 96 Calcium 9.4 Magnesium 1.9 Total Bilirubin 0.7 AST 12 L ALT 13 Alkaline Phosphatase 108 Total Protein 6.3 L Albumin 3.2 L Urine Color Yellow Urine Appearance Clear Urine pH 5.0 Ur Specific [place] 1.014 Urine Protein 1+ H Urine Glucose (UA) Negative Urine Ketones Negative Urine Blood Negative Urine Nitrite Negative Urine Bilirubin Negative Urine Urobilinogen 1.0 Ur Leukocyte Esterase Negative Urine WBC (Auto) 1 Urine RBC (Auto) 1 Urine Casts (Auto) 1 U Epithel Cells (Auto) 1.2 Urine Bacteria (Auto) 2.4 11/06/18 12:53 RBC 3.68 L MCV 97.6 H MCHC 34.4 RDW 14.8 MPV 8.1 Neutrophils % 68.7 Lymphocytes % 16.9 Monocytes % 7.0 Eosinophils % 6.3 H Basophils % 1.1 - RADIOLOGY Radiology Studies Ordered: Category Date Time Status CHEST X-RAY PORTABLE* [RAD] Stat Radiology 11/06/18 12:36 Completed Medical Decision Making - Medical Decision Making 11/06/18 16:15 Patient is a frail appearing 78-year-old male with multiple comorbidities referred to the ER for failure to thrive. Patient and [facility]. Works states that he is refusing to take medications orally and is also refusing by mouth solids and liquids. On arrival, patient is noted to be mildly hypertensive however there is no evidence of end organ damage and no indication for initiation of parenteral blood pressure control is indicated. Will obtain CBC/CMP/UA. Will admit for possible PEG tube placement. *DC/Admit/Observation/Transfer Diagnosis at time of Disposition: Failure to thrive in adult, Alston's palsy, Weakness - Discharge Dispostion Condition at time of disposition: Fair Decision to Admit order: Yes - Referrals - Patient Instructions - Post Discharge Activity
[2018-11-06] MEDS ORDERED: ALBUTEROL SO4 0.083% IH SOL 2.5 MG/3 ML VIAL.NEB. NEB PRN (17:53)
--- NOTE | 2018-11-06 18:07 | HP ---
Admitting History and Physical - Primary Care Physician PCP: Debra Waters - Admission Chief Complaint: Poor PO intake History of Present Illness: Patient is a 78 y/o male patient that presented to ER from [facility] with poor PO intake for the past couple days. Patient has been refusing food, liquids, and medications. Patient states having poor appetite with difficukty swallowing. Denies nausea, vomiting, abdominal pain. 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 Cardiovascular: Yes: HTN, Hyperlipdemia Pulmonary: Yes: COPD, O2 Dependent Renal/: Yes: Renal Inusuff - Past Surgical History Past Surgical History: Yes: Appendectomy, Stent (Possibly aortic, patient is unsure) - Smoking History Smoking history: Unknown if ever smoked Have you smoked in the past 12 months: No Aproximately how many cigarettes per day: 30 If you are a former smoker, when did you quit?: 2013 - Alcohol/Substance Use Hx Alcohol Use: No History of Substance Use: reports: None - Social History Usual Living Arrangement: Yes: Shelter ADL: Support Services (ambulated with RW) 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 History of Recent Travel: No Home Medications - Allergies Allergies/Adverse Reactions: Allergies Allergy/AdvReac Type Severity Reaction Status Date / Time iodine Allergy Verified 11/06/18 11:53 - Home Medications Home Medications: Ambulatory Orders Aspirin Coated [Ecotrin -] 81 mg PO DAILY tablet.ec 04/28/16 Albuterol 0.083% Nebulizer Mami [Ventolin 0.083% Nebulizer Soln -] 1 amp IH QID 11/06/18 Fluticasone/Vilanterol [Breo Ellipta 100-25 Mcg INH] 1 puff IN DAILY 11/06/18 Isosorbide Mononitrate [Monoket -] 10 mg PO BID 11/06/18 Mirtazapine [Remeron -] 15 mg PO HS 11/06/18 Polyvinyl Alcohol [Artificial Tears] 15 ml OP BID 11/06/18 Acetaminophen [Tylenol .Regular Strength -] 650 mg PO Q6H PRN tablet 11/08/18 Albuterol 0.083% Nebulizer Mami [Ventolin 0.083% Nebulizer Soln -] 1 amp NEB Q8H PRN amp 11/08/18 Amino Acids 4.25%/D5w [Clinimix 4.25%/D5w Solution] 42 ml IV Q24H #1 infus.bag 11/08/18 Aspirin Coated [Ecotrin -] 81 mg PO DAILY tablet.ec 11/08/18 Budesonide/Formeterol Fumarate [SYMBICORT 80/4.5mcg -] 2 puff IH BID inhaler Donepezil HCl [Aricept -] 5 mg PO DAILY tablet 11/08/18 Isosorbide Mononitrate [Monoket -] 10 mg PO BID@0800,1500 tablet 11/08/18 Memantine HCl [Namenda -] 5 mg PO DAILY tab 11/08/18 Metoprolol Tartrate [Lopressor -] 25 mg PO DAILY tablet 11/08/18 predniSONE [Deltasone -] 20 mg PO DAILY tablet 11/08/18 Review of Systems - Review of Systems Constitutional: reports: Loss of Appetite, Weakness Eyes: reports: No Symptoms HENT: reports: Difficult Swallowing Neck: reports: No Symptoms Cardiovascular: reports: No Symptoms Respiratory: reports: No Symptoms Gastrointestinal: reports: No Symptoms Genitourinary: reports: Incontinence Breasts: reports: No Symptoms Reported Musculoskeletal: reports: No Symptoms Integumentary: reports: No Symptoms Neurological: reports: Pre-Existing Deficit Endocrine: reports: No Symptoms Hematology/Lymphatic: reports: No Symptoms Psychiatric: reports: No Symptoms Physical Examination Vital Signs: Vital Signs Temperature 97.2 F L 11/06/18 11:53 Pulse Rate 82 11/06/18 11:53 Respiratory Rate 18 11/06/18 11:53 Blood Pressure 180/76 H 11/06/18 11:53 O2 Sat by Pulse Oximetry (%) 96 11/06/18 11:53 Constitutional: Yes: No Distress, Calm, Cachectic Eyes: Yes: Conjunctiva Clear HENT: Yes: Atraumatic Neck: Yes: Supple Cardiovascular: Yes: Regular Rate and Rhythm Respiratory: Yes: Regular, CTA Bilaterally Gastrointestinal: Yes: Normal Bowel Sounds, Soft Renal/: Yes: Incontinence Musculoskeletal: Yes: Muscle Weakness Extremities: Yes: WNL Edema: No Neurological: Yes: Alert, Pre-Existing Deficit Psychiatric: Yes: Alert Labs: CBC, BMP 11/06/18 12:53 11/06/18 12:53 Imaging - Results X-ray: Report Reviewed Problem List - Problems (1) Failure to thrive in adult Assessment/Plan: -Dietary consult -IV hydration -Ensure BID and Magic cup -GI consult for possible PEG -daily weights Code(s): R62.7 - ADULT FAILURE TO THRIVE (2) CKD (chronic kidney disease) stage 3, GFR 30-59 ml/min Assessment/Plan: -BUN/Cr 17/1.5 -monitor renal function -if BUN/Cr show uptrend with consult renal Code(s): N18.3 - CHRONIC KIDNEY DISEASE, STAGE 3 (MODERATE) (3) Hypertension Assessment/Plan: -continue Isosorbide mononitrate and Metoprolol -low Na diet Code(s): I10 - ESSENTIAL (PRIMARY) HYPERTENSION Qualifiers: Hypertension type: essential hypertension Qualified Code(s): I10 - Essential (primary) hypertension (4) Chronic obstruct airways disease Assessment/Plan: -continue Prednisone and Symbicort -O2 via NC -keep SpO2 >90% Code(s): J44.9 - CHRONIC OBSTRUCTIVE PULMONARY DISEASE, UNSPECIFIED Assessment/Plan see problem list dvt ppx
[2018-11-06] MEDS: HEPARIN NA (PORCINE) 5,000 UNITS/ML 1ML VIAL SQ SCH (23:01)
[2018-11-06] MEDS: BUDESONIDE/FORMETEROL FUMARATE 80/4.5 mcg INHALER IH SCH (23:02)
[2018-11-07] MEDS: DEXTROSE 5%-0.45% SALINE 1,000 ML IV SCH ×2 (06:08→16:39)
[2018-11-07 08:14] LABS: BASO % 1.2 % (0-2.0); EOS % 5.8 % (0-4.5); HEMATOCRIT 34.9 % (35.4-49); LYMPH % 17.8 % (8-40); MCHC 34.3 g/dl (32.0-35.9); MEAN CELL VOLUME 96.2 fl (80-96); MEAN PLT VOLUME 8.3 fl (7.5-11.1); MONO % 8.4 % (3.8-10.2); NEUT % 66.8 % (42.8-82.8); PLATELET COUNT 258 K/MM3 (134-434); RBC 3.63 M/mm3 (4.00-5.60); RDW 14.5 % (11.9-15.9); WHITE BLOOD COUNT 6.5 K/mm3 (4.0-10.0)
[2018-11-07] MEDS ORDERED: PT OWN MED DRAWER 7, Y5N ONE ×2 (08:18→08:40)
[2018-11-07 08:46] LABS: ALK PHOS 107 U/L (45-117); AMYLASE 75 U/L (25-115); ANION GAP 5 MMOL/L (8-16); BILIRUBIN,TOTAL 0.7 mg/dL (0.2-1); BLOOD UREA NITROGEN 16 mg/dL (7-18); CALCIUM 9.2 mg/dL (8.5-10.1); CHLORIDE 106 mmol/L (98-107); CO2 32 mmol/L (21-32); CREATININE 1.4 mg/dL (0.55-1.3); GLUCOSE,RANDOM 132 mg/dL (74-106); LIPASE 176 U/L (73-393); MAGNESIUM 1.7 mg/dL (1.8-2.4); PHOSPHOROUS 2.4 mg/dL (2.5-4.9); POTASSIUM 4.2 mmol/L (3.5-5.1); SGOT/AST 11 U/L (15-37); SGPT/ALT 12 U/L (13-61); SODIUM 143 mmol/L (136-145)
[2018-11-07] MEDS: ISOSORBIDE MONONITRATE 10 MG TABLET PO SCH ×2 (08:54→15:55)
[2018-11-07] MEDS: HEPARIN NA (PORCINE) 5,000 UNITS/ML 1ML VIAL SQ SCH ×2 (09:18→21:47)
[2018-11-07] MEDS: ASPIRIN COATED 81 MG TABLET.EC PO SCH ×2 (09:18→11:40)
[2018-11-07] MEDS: predniSONE 20 MG TABLET (UD) PO SCH ×2 (09:18→11:40)
[2018-11-07] MEDS: MEMANTINE HCL 5 MG TABLET (UD) PO SCH ×2 (09:18→11:50)
[2018-11-07] MEDS: METOPROLOL TARTRATE 25 MG TABLET (FP) PO SCH ×2 (09:18→11:45)
[2018-11-07] MEDS: DONEPEZIL HCL 5 MG TABLET (FP) PO SCH ×2 (09:19→11:30)
[2018-11-07] MEDS: BUDESONIDE/FORMETEROL FUMARATE 80/4.5 mcg INHALER IH SCH ×2 (09:24→21:47)
--- NOTE | 2018-11-07 12:15 | EKG ---
Test Reason : Blood Pressure : / mmHG Vent. Rate : 081 BPM Atrial Rate : 081 BPM P-R Int : 126 ms QRS Dur : 086 ms QT Int : 396 ms P-R-T Axes : 082 -47 -11 degrees QTc Int : 460 ms SINUS RHYTHM WITH PREMATURE ATRIAL COMPLEXES LEFT AXIS DEVIATION SEPTAL INFARCT (CITED ON OR BEFORE 14-AUG-2018) ABNORMAL ECG WHEN COMPARED WITH ECG OF 29-AUG-2018 00:22, NONSPECIFIC T WAVE ABNORMALITY NOW EVIDENT IN INFERIOR LEADS T WAVE AMPLITUDE HAS DECREASED IN ANTERIOR LEADS Confirmed by MACIEL GRAY MD ([id number]) on 11/07/2018 12:15:10 PM Referred By: Confirmed By:MACIEL GRAY MD
--- NOTE | 2018-11-07 12:24 | CONSULT ---
Admitting History and Physical - Primary Care Physician PCP: Carolyn Merritt - Admission History of Present Illness: Patient is a 78 y/o male patient that presented to ER from [facility] with poor PO intake for the past couple days. Patient has been refusing food, liquids, and medications. Patient states having poor appetite with difficuty swallowing. Reg diet/thin liquid ordered. Selected Entries 11/06/18 11/06/18 11/06/18 11:53 20:56 23:15 Breakfast Diet Tolerated Temperature 97.2 F L 97.9 F 98.7 F 11/07/18 11/07/18 11:04 11:12 Breakfast 25% Diet Tolerated Poor Temperature 98.6 F Laboratory Tests 11/07/18 07:42 WBC 6.5 Last seen 08/20/18-Good appetite/self feeds but does not use compensatory strategies independently Mbs reviewed at length with pt, family and staff. Weakened swallow reflex Aspiration on thin liquid. Stasis with puree. Rec:Thinned out puree with added gravy/soup Stirling thick liquid Chin tuck, effortful swallow x 2 per bite/sip Alt puree/liquid Ensure compact x 3 Supervision with meals Consider STR for PT/Sp/sw tx Pt's reports he has received swallowing tx at [facility] but recently refusing food. He has been on Dys puree/nectar thick liquid. Pt is emaciated. 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 Cardiovascular: Yes: HTN, Hyperlipdemia Pulmonary: Yes: COPD, O2 Dependent Renal/: Yes: Renal Inusuff - Past Surgical History Past Surgical History: Yes: Appendectomy, Stent (Possibly aortic, patient is unsure) - Advance Directives Advance Directives: Yes: MOLST, DNR - Smoking History Smoking history: Unknown if ever smoked Have you smoked in the past 12 months: No Aproximately how many cigarettes per day: 30 If you are a former smoker, when did you quit?: 2013 - Alcohol/Substance Use Hx Alcohol Use: No History of Substance Use: reports: None - Social History ADL: Support Services (ambulated with RW) 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 History of Recent Travel: No History - Admission Reason For Visit: FAILURE TO THRIVE - Diagnostics X-ray: Report Reviewed (cxr- no PNA) CT Scan: Report Reviewed - General Mental Status: Awake and Alert, Forgetful, Confused, Flat Affect Attention: Moderate Impairment Ability to Follow Directions: Fair (slow to respond) Head/Neck Control: Needs Assist - Hearing Hearing: Impaired Hearing Aide: Yes With Patient: No Speech Evaluation - Communication Primary Language: KHMER Communication: Yes: Simple Responses - Speech Production Intelligibility: Yes: Mildly Impaired - Speech Characteristics Voice Loudness: Mildly Soft/Quiet Voice Phonatory-based Quality: Yes: Dysphonia (mild) Articulation: Yes: Precise - Language/Auditory Comprehension Follows: Yes: 1 Stage Simple Commands Observation: Benefits from Slow Speech: Yes, Benefits from Repetiton: Yes, Benefits from Increased Volume of Speech: Yes - Swallow Evaluation/Bedside Assessment Current Nutritional Intake: Regular, Thin Liquids Oral Secretions: Yes: WFL Dentition: Yes: Edentulous (has dentures at [facility], ill fitted due to signif weight loss.) Facial Symmetry at Rest: Facial Droop Right (and right eye weakness, Alston's palsy.) Smile: Droops Right Lingual Movement: Symmetric Lingual Speed of Movement: Normal Lingual Movement Characteristics: Normal Laryngeal Movement: Able to Palpate, Reduced Excursion, Labored,delay initiation , Reduced Velocity Bolus Size: Small Labial Seal: WFL Oral Prep Time: Increased Timing of Swallow: Delayed Coughing/Throat Clear: Yes (thin , weak cough, unprotective) Recommendations - Speech Evaluation, Impression/Plan Impression: thin liquid with weak cough, unprotective c/w aspiration. Refusing food/puree trial. h/o mbs July 2018-weak laryngeal swallow with stasis and silent aspiration on thin liquid, Weight loss, likely malnourished with risk of aspiration and dehydration. - Disposition Discharge to: Long-Term Facility - Dysphagia Impressions/Plan Swallowing Skills: Impaired Dysphagia Impressions: Severe Impairment, Suspect Aspiration *Silent aspiration: cannot be R/O at bedside Dysphagia Treatment Plan: Elevate HOB during feed Recommendations: Other (Ask discussed with GI/PMD, NGT for ST nutrition, hydration, meds. Palliative care consult- PEG?) - Recommendations Diet Consistency: NPO Liquids: NPO
--- NOTE | 2018-11-07 12:39 | CON.GI ---
Consult Consult Specialty:: GI Referred by:: Dez Merritt NP Reason for Consultation:: Dysphagia - History of Present Illness Chief Complaint: Transferred for elevated Blood pressure and decrased PO intake History of Present Illness: 78M admitted from [facility] for evaluation of elevated BP and decreased PO intake. Called to evaluate for PEG He was evaluated by Deepthi Mendez during admission . S/S eval 08/19/18 revealed weak laryngeal swallow and pharyngeal build up as well as trace to mild silent aspiration on thin liquids. dietary adjustments and feeding recommendations were made including thinned out pureed feeds and nectar thick liquids. Per my discussion with Deepthi Vanessa today it does not appear as though he has been on that diet at [facility]. Currently, he offers no focal GI complaints. His Ex- is present at bedside. She states that he is complaining of right ear pain. He was recently seen at the [facility] ER and diagnosed with Alston's Palsy. 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 Cardio/Vascular: Yes: HTN, Hyperlipdemia Pulmonary: Yes: COPD, O2 Dependent Renal/: Yes: Renal Inusuff Additional Medical History: gu surgery as a child; cyst on back - Past Surgical History Past Surgical History: Yes: Appendectomy, Stent (Possibly aortic, patient is unsure) Additional Surgical History: Abdominal surgical surgery in childhood - Alcohol/Substance Use Hx Alcohol Use: No History of Substance Use: reports: None - Smoking History Smoking history: Former smoker Have you smoked in the past 12 months: No Aproximately how many cigarettes per day: 30 If you are a former smoker, when did you quit?: 2013 - Social History Usual Living Arrangement: Other (lives with and son in 2nd floor walk-up apartment with about 15 steps to enter) ADL: Support Services (ambulated with RW) 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 Place of : [place] History of Recent Travel: No Home Medications - Allergies Allergies/Adverse Reactions: Allergies Allergy/AdvReac Type Severity Reaction Status Date / Time iodine Allergy Verified 11/06/18 11:53 - Home Medications Home Medications: Ambulatory Orders Aspirin Coated [Ecotrin -] 81 mg PO DAILY tablet.ec 04/28/16 Metoprolol Tartrate [Lopressor -] 12.5 mg PO BID 08/14/18 Acetaminophen 325 mg PO QID PRN 11/06/18 Albuterol 0.083% Nebulizer Mami [Ventolin 0.083% Nebulizer Soln -] 1 amp IH QID 11/06/18 Fluticasone/Vilanterol [Breo Ellipta 100-25 Mcg INH] 1 puff IN DAILY 11/06/18 Isosorbide Mononitrate [Monoket -] 10 mg PO BID 11/06/18 Mirtazapine [Remeron -] 15 mg PO HS 11/06/18 Polyvinyl Alcohol [Artificial Tears] 15 ml OP BID 11/06/18 Family Disease History - Family Disease History Family Disease History: Other: Father (: 70's: Dementia), Mother (: 70' s. Unclear cause), Brother (1, alive, CVA), Son (1, healthy), Daughter (1, healthy) Other Family History: No family history of colorectal cancer or other GI malignancy Review of Systems - Review of Systems Constitutional: reports: Loss of Appetite. denies: Fever Cardiovascular: denies: Chest Pain Physical Exam-GI Vital Signs: Vital Signs Temperature 98.6 F 11/07/18 11:12 Pulse Rate 91 H 11/07/18 11:12 Respiratory Rate 20 11/07/18 11:12 Blood Pressure 177/98 H 11/07/18 11:12 O2 Sat by Pulse Oximetry (%) 97 11/07/18 10:00 Constitutional: Yes: Calm Eyes: Yes: Tearing (right eye with erythematous conjunctiva). No: Sclera Icterus Cardiovascular: Yes: Regular Rate and Rhythm. No: Murmur Respiratory: Yes: Diminished (at bases with poor insp effort) Gastrointestinal Inspection: Yes: Scars (midline vertical pelvic surgical scar) . No: Distention ...Auscultate: Yes: Normoactive Bowel Sounds ...Palpate: Yes: Soft. No: Tenderness (No grimacing upon palpation) ...Percussion: No: Tympanitic Edema: No (No LE edema) Neurological: Yes: Alert Labs: CBC, BMP 11/07/18 07:42 11/07/18 07:42 Problem List - Problems (1) Failure to thrive in adult Assessment/Plan: Discussed option of PEG with his ex- as a means of providing consistent meds and feeds. Discussed potential risks of the procedure like but not limited to bleeding, perforation requiring surgery to repair, infection, sedation medication effects, perotinitis if the tube was prematurely dislodged all of which could be potentially life threatening. She stated that she would need to think about this option, speak and speak with her faimly regarding this. I gave her my card if she had any further questions In the interim: Palliative care consults. Discussion with family re: goals of care and patient wishes regarding feeding tube NGT feeds if family wants this Aspiration precautions Evaluation of right ear pain complaints per primary team Recall if decision is made re: PEG placement Code(s): R62.7 - ADULT FAILURE TO THRIVE
--- NOTE | 2018-11-07 12:57 | PN ---
Progress Note, Physician Chief Complaint: Poor PO intake Failure to Thrive History of Present Illness: Previous notes and events reviewed awake and alert NAD patient continues to refuse medications and PO food or liquid intake elevated BP noted this AM - Current Medication List Current Medications: Active Medications Albuterol Sulfate (Ventolin 0.083% Nebulizer Soln -) 1 amp NEB Q8H PRN PRN Reason: SHORT OF BREATH/WHEEZING Aspirin (Ecotrin -) 81 mg PO DAILY [facility] Budesonide/Formoterol Fumarate (Symbicort 80/4.5mcg -) 2 puff IH BID [facility] Last Admin: 11/07/18 09:24 Dose: Not Given Clonidine HCl (Catapres Tts Patch -) 0.1 mg TD Q7D@1000 [facility] Donepezil HCl (Aricept -) 5 mg PO DAILY [facility] Heparin Sodium (Porcine) (Heparin -) 5,000 unit SQ BID [facility] Last Admin: 11/07/18 09:18 Dose: 5,000 unit Dextrose/Sodium Chloride (D5-1/2ns -) 1,000 mls @ 100 mls/hr IV ASDIR [facility] Last Admin: 11/07/18 06:08 Dose: 100 mls/hr Isosorbide Mononitrate (Ismo -) 10 mg PO BID@0800,1500 [facility] Last Admin: 11/07/18 08:54 Dose: 10 mg Memantine (Namenda -) 5 mg PO DAILY [facility] Metoprolol Tartrate (Lopressor -) 25 mg PO DAILY [facility] Prednisone (Deltasone -) 20 mg PO DAILY [facility] - Objective Vital Signs: Vital Signs Temperature 98.6 F 11/07/18 11:12 Pulse Rate 91 H 11/07/18 11:12 Respiratory Rate 20 11/07/18 11:12 Blood Pressure 177/98 H 11/07/18 11:12 O2 Sat by Pulse Oximetry (%) 97 11/07/18 10:00 Constitutional: Yes: No Distress, Calm, Cachectic Eyes: Yes: Conjunctiva Clear HENT: Yes: Atraumatic Cardiovascular: Yes: Regular Rate and Rhythm Respiratory: Yes: Regular, Diminished Gastrointestinal: Yes: Normal Bowel Sounds, Soft Genitourinary: Yes: Incontinence Musculoskeletal: Yes: Muscle Weakness Extremities: Yes: WNL Edema: No Neurological: Yes: Alert, Pre-Existing Deficit Psychiatric: Yes: Alert Labs: CBC, BMP 11/07/18 07:42 11/07/18 07:42 Problem List - Problems (1) Failure to thrive in adult Assessment/Plan: -Dietary consult -will start on Clinimix -Ensure BID and Magic cup -GI on board -Palliative care consult -daily weights Code(s): R62.7 - ADULT FAILURE TO THRIVE (2) CKD (chronic kidney disease) stage 3, GFR 30-59 ml/min Assessment/Plan: -BUN/Cr 07/08.4 -monitor renal function -if BUN/Cr show uptrend with consult renal Code(s): N18.3 - CHRONIC KIDNEY DISEASE, STAGE 3 (MODERATE) (3) Hypertension Assessment/Plan: -will start on Clonidine patch due to refusing PO meds -low Na diet Code(s): I10 - ESSENTIAL (PRIMARY) HYPERTENSION Qualifiers: Hypertension type: essential hypertension Qualified Code(s): I10 - Essential (primary) hypertension (4) Chronic obstruct airways disease Assessment/Plan: -continue Prednisone and Symbicort -O2 via NC -keep SpO2 >90% Code(s): J44.9 - CHRONIC OBSTRUCTIVE PULMONARY DISEASE, UNSPECIFIED (5) Severe malnutrition Assessment/Plan: -Dietary consult -will start on Clinimix -Ensure BID and Magic cup -GI on board -Palliative care consult -daily weights Code(s): E43 - UNSPECIFIED SEVERE PROTEIN-CALORIE MALNUTRITION Assessment/Plan see problem list dvt ppx
--- NOTE | 2018-11-07 14:36 | CON.CARD ---
Consult Consult Specialty:: cardiology Reason for Consultation:: HTN - History of Present Illness History of Present Illness: 78 yo M COPD, CKD. Transfer from [place] due to failure to thrive, poor po intake and HTN as he has not been taking his medications. His Ex- is present and a discussion regarding tube feeding is in progress. The patient is comfortable and does not seem in distress. is hypertensive with SBP 150-170mmHg. Echocardiogram 07/2018 showed normal LV and RV function. 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: Yes: Dementia Cardio/Vascular: Yes: HTN, Hyperlipdemia Pulmonary: Yes: COPD, O2 Dependent Renal/: Yes: Renal Inusuff Additional Medical History: gu surgery as a child; cyst on back - Past Surgical History Past Surgical History: Yes: Appendectomy, Stent (Possibly aortic, patient is unsure) Additional Surgical History: Abdominal surgical surgery in childhood - Alcohol/Substance Use Hx Alcohol Use: No History of Substance Use: reports: None - Smoking History Smoking history: Former smoker Have you smoked in the past 12 months: No Aproximately how many cigarettes per day: 30 If you are a former smoker, when did you quit?: 2013 - Social History Usual Living Arrangement: Other (lives with and son in 2nd floor walk-up apartment with about 15 steps to enter) ADL: Support Services (ambulated with RW) 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 History of Recent Travel: No Home Medications - Allergies Allergies/Adverse Reactions: Allergies Allergy/AdvReac Type Severity Reaction Status Date / Time iodine Allergy Verified 11/06/18 11:53 - Home Medications Home Medications: Ambulatory Orders Aspirin Coated [Ecotrin -] 81 mg PO DAILY tablet.ec 04/28/16 Metoprolol Tartrate [Lopressor -] 12.5 mg PO BID 08/14/18 Acetaminophen 325 mg PO QID PRN 11/06/18 Albuterol 0.083% Nebulizer Mami [Ventolin 0.083% Nebulizer Soln -] 1 amp IH QID 11/06/18 Fluticasone/Vilanterol [Breo Ellipta 100-25 Mcg INH] 1 puff IN DAILY 11/06/18 Isosorbide Mononitrate [Monoket -] 10 mg PO BID 11/06/18 Mirtazapine [Remeron -] 15 mg PO HS 11/06/18 Polyvinyl Alcohol [Artificial Tears] 15 ml OP BID 11/06/18 Family Disease History - Family Disease History Family Disease History: Other: Father (: 70's: Dementia), Mother (: 70' s. Unclear cause), Brother (1, alive, CVA), Son (1, healthy), Daughter (1, healthy) Other Family History: No family history of colorectal cancer or other GI malignancy Review of Systems Unable to obtain ROS, reason: Dementia Vital Signs: Vital Signs Temperature 98.0 F 11/07/18 14:00 Pulse Rate 61 11/07/18 14:00 Respiratory Rate 20 11/07/18 11:12 Blood Pressure 154/79 11/07/18 14:00 O2 Sat by Pulse Oximetry (%) 97 11/07/18 10:00 Constitutional: Yes: Well Nourished, Cachectic Eyes: Yes: Conjunctiva Clear, EOM Intact HENT: Yes: Atraumatic, Normocephalic Neck: Yes: Supple, Trachea Midline Respiratory: Yes: Regular, CTA Bilaterally Gastrointestinal: Yes: Normal Bowel Sounds Cardiovascular: Yes: Regular Rate and Rhythm JVD: No Carotid Bruit: No PMI: Non-Displaced Heart Sounds: Yes: S1, S2 Murmur: No: Systolic Murmur, Diastolic Murmur Edema: No - Other Data Labs, Other Data: CBC, BMP 11/07/18 07:42 11/07/18 07:42 Imaging - Results Chest X-ray: Report Reviewed (No infiltrate) Problem List - Problems (1) Hypertension Code(s): I10 - ESSENTIAL (PRIMARY) HYPERTENSION Qualifiers: Hypertension type: essential hypertension Qualified Code(s): I10 - Essential (primary) hypertension Assessment/Plan 78 M with HTN COPD admitted with failure to thrive. Not taking PO including medications. THis BP is mildly elevated but pt is in no distress. The family has expressed pt to be DNR and offered tube feeds. HTN is due to inability/desire to take medications. It is mildly elevated and cannot be treated at this time. Stop oral BP medications. Clonidine patch can be substituted. continue to address goals of care. If the patient and family desire artificial feeds, oral BP medications can be addressed at that time. Will see as needed.
[2018-11-07] MEDS ORDERED: AMINO ACIDS 4.25%/D5W 1,000 ML IV SCH (18:00)
[2018-11-08 07:28] LABS: HEMATOCRIT 32.3 % (35.4-49); MCH 32.7 pg (25.7-33.7); MCHC 33.9 g/dl (32.0-35.9); MEAN CELL VOLUME 96.4 fl (80-96); MEAN PLT VOLUME 8.4 fl (7.5-11.1); PLATELET COUNT 268 K/MM3 (134-434); RBC 3.35 M/mm3 (4.00-5.60); RDW 14.2 % (11.9-15.9); WHITE BLOOD COUNT 5.3 K/mm3 (4.0-10.0)
[2018-11-08] MEDS ORDERED: PT OWN MED DRAWER 7, Y5N ONE (07:52)
[2018-11-08 08:05] LABS: ALBUMIN 3.1 g/dl (3.4-5.0); ALK PHOS 93 U/L (45-117); ANION GAP 7 MMOL/L (8-16); BILIRUBIN,TOTAL 0.7 mg/dL (0.2-1); BLOOD UREA NITROGEN 19 mg/dL (7-18); CALCIUM 8.5 mg/dL (8.5-10.1); CHLORIDE 102 mmol/L (98-107); CO2 30 mmol/L (21-32); CREATININE 1.4 mg/dL (0.55-1.3); GLUCOSE,RANDOM 125 mg/dL (74-106); POTASSIUM 4.4 mmol/L (3.5-5.1); SGOT/AST 11 U/L (15-37); SGPT/ALT 11 U/L (13-61); SODIUM 139 mmol/L (136-145); TOT PROT 5.8 g/dl (6.4-8.2)
[2018-11-08] MEDS: ISOSORBIDE MONONITRATE 10 MG TABLET PO SCH ×2 (08:40→15:20)
--- NOTE | 2018-11-08 10:02 | PN ---
Progress Note, HEAD AND NECK SURGEON - Note Progress Note: 78 yo seen at bedside for follow up to swallow eval with HEAD AND NECK SURGEON Melanie. Pt was asleep but arousable and able to maintain alert. Pt is verbal,A&Ox1. Chart review revealed pt continues to refuse po intake. Current diet is dysphagia pureed with nectar thicken liquids. Pt given po trials of pureed with assistance revealed reduced acceptance, adequate bolus control and transport. Pharyngeal swallow appears timely with no cough or changes in voice or respiration at bedside at this time. Pt given po trials of ice chips and nectar thicken liquids with assistance revealed reduced acceptance, adequate bolus control and transport. Pharyngeal swallow appears timely with no cough or changes in voice or respiration at bedside at this time. Impressions: reduced airway protection with weak cough, breathy vocal quality and can not r/o silent aspiration at bedside. Refusing food/puree . h/o mbs July 2018-weak laryngeal swallow with stasis and silent aspiration on thin liquid, Weight loss, likely malnourished with risk of aspiration and dehydration. Recommendations: continue current diet of pureed with nectar thickened liquids via cup or spoon (no Straws) as tolerated. Consider alternative method for providing medication nutrition and hydration (PEG?) if intake continues to decline. Results given verbally to dry pan charger and PCP via chart. HEAD AND NECK SURGEON to follow up.
[2018-11-08] MEDS: DONEPEZIL HCL 5 MG TABLET (FP) PO SCH (10:40)
[2018-11-08] MEDS: ASPIRIN COATED 81 MG TABLET.EC PO SCH (10:41)
[2018-11-08] MEDS: METOPROLOL TARTRATE 25 MG TABLET (FP) PO SCH (10:41)
[2018-11-08] MEDS: MEMANTINE HCL 5 MG TABLET (UD) PO SCH (10:41)
[2018-11-08] MEDS: predniSONE 20 MG TABLET (UD) PO SCH (10:41)
[2018-11-08] MEDS: HEPARIN NA (PORCINE) 5,000 UNITS/ML 1ML VIAL SQ SCH (11:41)
[2018-11-08] MEDS: BUDESONIDE/FORMETEROL FUMARATE 80/4.5 mcg INHALER IH SCH (11:42)
[2018-11-08] MEDS ORDERED: ACETAMINOPHEN 650 MG SUPP.RECT PR PRN (12:29)
[2018-11-08] MEDS ORDERED: ACETAMINOPHEN 325 MG TABLET (FP) PO PRN (12:31)
[2018-11-08 14:29] VITALS: BP 150/68; PULSE 66; TEMP 97.7
--- NOTE | 2018-11-08 14:35 | DS ---
Physical Examination Vital Signs: Vital Signs Temperature 97.7 F 11/08/18 14:28 Pulse Rate 66 11/08/18 14:28 Respiratory Rate 18 11/08/18 09:00 Blood Pressure 150/68 11/08/18 14:28 O2 Sat by Pulse Oximetry (%) 98 11/08/18 09:00 Findings/Remarks: Patient is a 78 y/o male patient that presented to ER from [facility] with poor PO intake for the past couple days. Patient has been refusing food, liquids, and medications. Patient states having poor appetite with difficukty swallowing. Denies nausea, vomiting, abdominal pain. Constitutional: Yes: No Distress, Calm, Cachectic Eyes: Yes: Conjunctiva Clear HENT: Yes: Atraumatic Cardiovascular: Yes: Regular Rate and Rhythm Respiratory: Yes: Diminished, On Nasal O2 Gastrointestinal: Yes: Normal Bowel Sounds, Soft Renal/: Yes: Incontinence Musculoskeletal: Yes: Muscle Weakness Extremities: Yes: WNL Edema: No Neurological: Yes: Alert, Pre-Existing Deficit Psychiatric: Yes: Alert Labs: CBC, BMP 11/08/18 06:35 11/08/18 06:35 Discharge Summary Reason For Visit: FAILURE TO THRIVE Current Active Problems Alston's palsy (Acute) Failure to thrive in adult (Acute) Weakness (Acute) Hospital Course: see progress notes Laboratory Tests 11/06/18 11/06/18 11/06/18 12:53 12:53 13:01 WBC 6.1 RBC 3.68 L Hgb 12.3 Hct 35.9 MCV 97.6 H MCH 33.6 MCHC 34.4 RDW 14.8 Plt Count 220 MPV 8.1 Absolute Neuts (auto) 4.2 Neutrophils % 68.7 Lymphocytes % 16.9 Monocytes % 7.0 Eosinophils % 6.3 H Basophils % 1.1 Nucleated RBC % 0 Sodium 145 Potassium 4.7 Chloride 108 H Carbon Dioxide 34 H Anion Gap 2 L BUN 17 Creatinine 1.5 H Creat Clearance w eGFR 45.14 POC Glucometer Random Glucose 96 Calcium 9.4 Phosphorus Magnesium 1.9 Total Bilirubin 0.7 AST 12 L ALT 13 Alkaline Phosphatase 108 Total Protein 6.3 L Albumin 3.2 L Total Amylase Lipase TSH Urine Color Yellow Urine Appearance Clear Urine pH 5.0 Ur Specific [place] 1.014 Urine Protein 1+ H Urine Glucose (UA) Negative Urine Ketones Negative Urine Blood Negative Urine Nitrite Negative Urine Bilirubin Negative Urine Urobilinogen 1.0 Ur Leukocyte Esterase Negative Urine WBC (Auto) 1 Urine RBC (Auto) 1 Urine Casts (Auto) 1 U Epithel Cells (Auto) 1.2 Urine Bacteria (Auto) 2.4 11/07/18 11/07/18 11/07/18 07:42 07:42 11:43 WBC 6.5 RBC 3.63 L Hgb 12.0 Hct 34.9 L MCV 96.2 H MCH 33.0 MCHC 34.3 RDW 14.5 Plt Count 258 MPV 8.3 Absolute Neuts (auto) 4.3 Neutrophils % 66.8 Lymphocytes % 17.8 Monocytes % 8.4 Eosinophils % 5.8 H Basophils % 1.2 Nucleated RBC % 0 Sodium 143 Potassium 4.2 Chloride 106 Carbon Dioxide 32 Anion Gap 5 L BUN 16 Creatinine 1.4 H Creat Clearance w eGFR 48.89 POC Glucometer 111 Random Glucose 132 H Calcium 9.2 Phosphorus 2.4 L Magnesium 1.7 L Total Bilirubin 0.7 AST 11 L ALT 12 L Alkaline Phosphatase 107 Total Protein 6.0 L Albumin 3.0 L Total Amylase 75 Lipase 176 TSH 3.71 D Urine Color Urine Appearance Urine pH Ur Specific [place] Urine Protein Urine Glucose (UA) Urine Ketones Urine Blood Urine Nitrite Urine Bilirubin Urine Urobilinogen Ur Leukocyte Esterase Urine WBC (Auto) Urine RBC (Auto) Urine Casts (Auto) U Epithel Cells (Auto) Urine Bacteria (Auto) 11/07/18 11/08/18 11/08/18 18:24 00:39 06:35 WBC 5.3 RBC 3.35 L Hgb 11.0 L Hct 32.3 L MCV 96.4 H MCH 32.7 MCHC 33.9 RDW 14.2 Plt Count 268 MPV 8.4 Absolute Neuts (auto) Neutrophils % Lymphocytes % Monocytes % Eosinophils % Basophils % Nucleated RBC % Sodium Potassium Chloride Carbon Dioxide Anion Gap BUN Creatinine Creat Clearance w eGFR POC Glucometer 126 143 Random Glucose Calcium Phosphorus Magnesium Total Bilirubin AST ALT Alkaline Phosphatase Total Protein Albumin Total Amylase Lipase TSH Urine Color Urine Appearance Urine pH Ur Specific [place] Urine Protein Urine Glucose (UA) Urine Ketones Urine Blood Urine Nitrite Urine Bilirubin Urine Urobilinogen Ur Leukocyte Esterase Urine WBC (Auto) Urine RBC (Auto) Urine Casts (Auto) U Epithel Cells (Auto) Urine Bacteria (Auto) 11/08/18 11/08/18 06:35 11:56 WBC RBC Hgb Hct MCV MCH MCHC RDW Plt Count MPV Absolute Neuts (auto) Neutrophils % Lymphocytes % Monocytes % Eosinophils % Basophils % Nucleated RBC % Sodium 139 Potassium 4.4 Chloride 102 Carbon Dioxide 30 Anion Gap 7 L BUN 19 H Creatinine 1.4 H Creat Clearance w eGFR 48.89 POC Glucometer 104 Random Glucose 125 H Calcium 8.5 Phosphorus Magnesium Total Bilirubin 0.7 AST 11 L ALT 11 L Alkaline Phosphatase 93 Total Protein 5.8 L Albumin 3.1 L Total Amylase Lipase TSH Urine Color Urine Appearance Urine pH Ur Specific [place] Urine Protein Urine Glucose (UA) Urine Ketones Urine Blood Urine Nitrite Urine Bilirubin Urine Urobilinogen Ur Leukocyte Esterase Urine WBC (Auto) Urine RBC (Auto) Urine Casts (Auto) U Epithel Cells (Auto) Urine Bacteria (Auto) Active Medications Generic Name Dose Route Start Last Admin Trade Name Freq PRN Reason Stop Dose Admin Acetaminophen 650 mg 11/08/18 12:31 11/08/18 13:28 Tylenol - PO 650 mg Q6H PRN Administration PAIN LEVEL 4 - 6 Albuterol Sulfate 1 amp 11/06/18 17:53 Ventolin 0.083% Nebulizer Soln - NEB Q8H PRN SHORT OF BREATH/WHEEZING Aspirin 81 mg 11/07/18 10:00 11/08/18 10:41 Ecotrin - PO 81 mg DAILY [facility] Administration Budesonide/Formoterol Fumarate 2 puff 11/06/18 22:00 11/08/18 11:42 Symbicort 80/4.5mcg - IH Not Given BID [facility] Clonidine HCl 0.1 mg 11/14/18 10:00 Catapres Tts Patch - TD Q7D@1000 [facility] Donepezil HCl 5 mg 11/07/18 10:00 11/08/18 10:40 Aricept - PO 5 mg DAILY [facility] Administration Heparin Sodium (Porcine) 5,000 unit 11/06/18 22:00 11/08/18 11:41 Heparin - SQ 5,000 unit BID [facility] Administration Amino Acids 1,000 mls @ 42 mls/hr 11/07/18 18:00 11/07/18 18:21 Clinimix - IV 42 mls/hr Q24H [facility] Administration Isosorbide Mononitrate 10 mg 11/07/18 08:00 11/08/18 08:40 Ismo - PO 10 mg BID@0800,1500 [facility] Administration Memantine 5 mg 11/07/18 10:00 11/08/18 10:41 Namenda - PO 5 mg DAILY [facility] Administration Metoprolol Tartrate 25 mg 11/07/18 10:00 11/08/18 10:41 Lopressor - PO 25 mg DAILY [facility] Administration Prednisone 20 mg 11/07/18 10:00 11/08/18 10:41 Deltasone - PO 20 mg DAILY [facility] Administration Microbiology 11/06/18 13:01 Urine - Urine - Catheterized Urine Culture - Final NO GROWTH OBTAINED Condition: Stable - Instructions Diet, Activity, Other Instructions: Continue with medication regimen as prescribed return to ER if develop AMS, severe chest pain, respiratory failure Disposition: [facility] - Home Medications Comprehensive Discharge Medication List: Ambulatory Orders Aspirin Coated [Ecotrin -] 81 mg PO DAILY tablet.ec 04/28/16 Albuterol 0.083% Nebulizer Mami [Ventolin 0.083% Nebulizer Soln -] 1 amp IH QID 11/06/18 Fluticasone/Vilanterol [Breo Ellipta 100-25 Mcg INH] 1 puff IN DAILY 11/06/18 Isosorbide Mononitrate [Monoket -] 10 mg PO BID 11/06/18 Mirtazapine [Remeron -] 15 mg PO HS 11/06/18 Polyvinyl Alcohol [Artificial Tears] 15 ml OP BID 11/06/18 Acetaminophen [Tylenol .Regular Strength -] 650 mg PO Q6H PRN tablet 11/08/18 Albuterol 0.083% Nebulizer Mami [Ventolin 0.083% Nebulizer Soln -] 1 amp NEB Q8H PRN amp 11/08/18 Amino Acids 4.25%/D5w [Clinimix 4.25%/D5w Solution] 42 ml IV Q24H #1 infus.bag 11/08/18 Aspirin Coated [Ecotrin -] 81 mg PO DAILY tablet.ec 11/08/18 Budesonide/Formeterol Fumarate [SYMBICORT 80/4.5mcg -] 2 puff IH BID inhaler Donepezil HCl [Aricept -] 5 mg PO DAILY tablet 11/08/18 Isosorbide Mononitrate [Monoket -] 10 mg PO BID@0800,1500 tablet 11/08/18 Memantine HCl [Namenda -] 5 mg PO DAILY tab 11/08/18 Metoprolol Tartrate [Lopressor -] 25 mg PO DAILY tablet 11/08/18 predniSONE [Deltasone -] 20 mg PO DAILY tablet 11/08/18
--- NOTE | 2018-11-08 18:15 | PN ---
Progress Note (short form) - Note Progress Note: ENT arrived to see patient for consultation called to office today patient has just been discharged home not seen Martín Calhoun MD FACS
[2018-11-09 03:08] VITALS: BMI 13.0
[2018-11-14] MEDS ORDERED: cloNIDine-TTS 0.1 MG/24 HRS PATCH.TDWK TD SCH (10:00)
== END 2018-11-08 18:21 | DRG 391 ==
LOC: JER 11:43 → JERBED 16:16 → J6S 22:40
PROVIDERS: ADMIT Family Medicine; ATTEND Family Medicine
DX: R13.10 Dysphagia, unspecified (principal); E43 Unspecified severe protein-calorie malnutrition; R64 Cachexia; Z68.1 Body mass index [BMI] 19.9 or less, adult; R62.7 Adult failure to thrive; N18.3 Chronic kidney disease, stage 3 (moderate); J44.9 Chronic obstructive pulmonary disease, unspecified; F03.90 Unspecified dementia, unspecified severity, without behavioral disturbance, psychotic disturbance, mood disturbance, and anxiety; I10 Essential (primary) hypertension; E78.5 Hyperlipidemia, unspecified; Z87.891 Personal history of nicotine dependence; G51.0 Bell's palsy; Z99.81 Dependence on supplemental oxygen
CPT/HCPCS: 36415; 71045-TC-FY; 80053; 81003; 82150; 82962; 83690; 83735; 84100; 84436; 84443; 85025; 85027; 87086; 93005; 93010; 97116-GP; 97162-GP; 99283-25; J1644